=== PATIENT | male | born 1955 | race Caucasian/White ===

== ENCOUNTER → 2020-11-29 13:57 | Outpatient (BNVA) | payer MEDICAID, SELFPAY | PROVIDERS: PCP Registered Nurse Community Health; Visit Provider Nurse Practitioner Family ==

== ENCOUNTER 2021-01-11 13:13 | Emergency (ER) | payer MEDICAID, SELFPAY ==
--- NOTE | ~2021-01-11 | CT_ITS ---
EXAMINATION: CT ABDOMEN AND PELVIS WITHOUT CONTRAST CLINICAL INFORMATION: Left flank pain. Rule out renal colic COMPARISON: None TECHNIQUE: Multidetector volumetric imaging was performed from the superior aspect of the liver through the pubic symphysis. Sagittal and coronal reformatted images were obtained on the technologist's workstation. This CT examination was performed using dose optimization techniques as appropriate, variously including the following: *Automated exposure control *Adjustment of mA and/or kV according to patient size (this includes techniques or standardized protocols for targeted exams where dose is matched to indication/reason for exam; i.e. extremities or head) *Use of iterative reconstruction technique DLP: 653 mGy-cm FINDINGS: LUNG BASES: There is bibasilar atelectasis. In addition there is patchy opacity left lung base question infiltrate versus atelectasis. LIVER, GALLBLADDER, AND BILIARY TREE: The liver is normal in size, shape, and attenuation. No focal hepatic lesion or biliary ductal dilatation is present. The gallbladder is unremarkable with no evidence of radiopaque gallstones, gallbladder wall thickening, or obvious pericholecystic inflammatory changes. PANCREAS: Unremarkable. SPLEEN: Unremarkable. ADRENAL GLANDS: Unremarkable. KIDNEYS AND URETERS: The kidneys are normal in size, shape, and attenuation. There is mild left hydroureteronephrosis from a 3 mm radiopaque calculi at the left UVJ within the bladder. There is 2 mm radiopaque calculi seen in the upper pole calyx right kidney. There is bilateral perinephric stranding. BLADDER: There is a 3 mm radiopaque calculi at left UVJ, within the bladder. No additional radiopaque calculi seen. There is minimal bladder wall thickening. GASTROINTESTINAL TRACT: There is scattered stool, diverticuli and gas seen throughout the colon without significant distention. The small bowel loops are normal caliber. The appendix is normal caliber. ABDOMINAL WALL: There is a left periumbilical hernia containing fat with a 3.3 cm wide neck. LYMPH NODES: Normal. VASCULAR: Unremarkable. PELVIC VISCERA: There is no free air or free fluid seen. The prostate gland is mildly enlarged. OSSEOUS STRUCTURES: There is vacuum disc phenomena and degenerative disc changes L3-L4 and L4-L5 disc levels with ventral spondylosis. No lytic or sclerotic process seen. There is moderate L5-S1 facet joint arthropathy slightly greater on the right. CT/CT abdomen pelvis wo con IMPRESSION: 3 mm radiopaque calculi at the left UVJ within the urinary bladder. There is mild hydroureteronephrosis. Punctate 2 mm. The calculated upper pole calyx right kidney. Left periumbilical hernia containing fat and neck 3.3 cm wide. Colonic diverticulosis without diverticulitis.
[2021-01-11 13:29] VITALS: BP 147/95; PULSE 83; RESP 18; TEMP 36.8; O2SAT 99; BMI 31.6
--- NOTE | 2021-01-11 13:38 | ED.ABDPAIN ---
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 No nausea, vomiting, diarrhea, fevers, chills. Related Data Home Medications Medication Instructions Recorded Confirmed allopurinol 100 mg tablet 100 mg PO DAILY 11/29/20 11/29/20 fenofibrate micronized 134 mg 134 mg PO DAILY 11/29/20 11/29/20 capsule losartan 25 mg tablet 25 mg PO DAILY 11/29/20 11/29/20 metformin 500 mg tablet 500 mg PO BID 11/29/20 11/29/20 multivitamin 1 tab PO QAM 11/29/20 11/29/20 vitamin B complex 1 tab PO DAILY 11/29/20 11/29/20 Previous Rx's Medication Instructions Recorded bisacodyl 5 mg tablet,delayed 10 mg PO ONCE 1 Days #2 tab 11/29/20 release polyethylene glycol 3350 17 238 g PO ONCE #238 g 11/29/20 gram/dose oral powder tamsulosin [Flomax] 0.4 mg PO DAILY #5 cap 01/11/21 Allergies Allergy/AdvReac Type Severity Reaction Status Date / Time gemfibrozil [GEMFIBROZIL] Allergy Intermediate ELEVATED Verified 11/29/20 13:58 LIVER ENZYMES nifedipine [NIFEDIPINE] Allergy Intermediate ELEVATED Verified 11/29/20 13:58 LIVER ENZYMES verapamil [VERAPAMIL] Allergy Intermediate ELEVATED Verified 11/29/20 13:58 LIVER ENZYMES Review of Systems Review of Systems Yes all other systems are reviewed and are negative Constitutional: Reports no additional constitutional complaints, Denies body ache(s), Denies chills, Denies fever(s), Denies headache(s) and Denies weakness Eyes: Reports no additional eye complaints and Denies change in vision Reports system reviewed and no additional complaints, except as documented, Denies dizziness, Denies headache(s), Denies nasal congestion, Denies nasal discharge and Denies neck pain Cardiovascular: Reports no additional cardiovascular complaints, Denies chest pain, Denies leg edema and Denies dyspnea Respiratory: Reports no additional respiratory complaints, Denies cough and Denies dyspnea Gastrointestinal: Reports no additional gastrointestinal complaints, Denies abdominal pain, Denies diarrhea, Denies nausea and Denies vomiting Genitourinary: Reports dysuria, Reports flank pain, Denies testicular pain, Reports urinary frequency, Denies urinary incontinence and Reports urinary urgency Musculoskeletal: Reports no additional musculoskeletal complaints, Reports back pain, Denies arthralgias, Denies joint swelling, Denies neck pain, Denies numbness and Denies tingling Skin/Breast: Reports system reviewed and no additional complaints, except as docu and Denies rash Reports system reviewed and no additional complaints, except as documented, Denies Abnormal speech present, Denies dizziness, Denies headache(s), Denies numbness, Denies tingling and Denies weakness Physical Exam Vital Signs: Vital Signs: Last Vital Signs Temp 98.2 F 01/11/21 13:29 Pulse 83 01/11/21 13:29 Resp 18 01/11/21 14:42 BP 118/78 01/11/21 14:42 Pulse Ox 99 01/11/21 13:29 Body Mass Index 31.6 Const: General: cooperative, healthy appearing, comfortable and no acute distress Orientation/consciousness: patient oriented x3 Limitations: no limitations HENMT: Head: Yes normal to inspection Ears: hearing grossly normal bilaterally General nose exam: Normal external nose present Face and sinus: Yes normal facial exam Mouth: Normal oral and palatal mucosa present Throat: Yes posterior oropharynx normal Eyes: General: appearance normal, both eyes and all related structures Pupils: Equal, round and reactive pupils present Neck: Neck: Yes normal visual inspection Chest: Chest palpation & inspection: normal inspection of the chest Resp: Effort & Inspection: normal respiratory effort Auscultation: clear to auscultation bilaterally Cardio: Rate: regular rate Rhythm: regular rhythm Peripheral pulses: Peripheral pulses 2+ throughout GI: Inspection: Yes normal to inspection Palpation (GI): Soft to palpation and Tenderness to palpation present (GI) (mild left sided, no rebound or guarding) Auscultation: normal bowel sounds : Other: deferred by patient General: Yes CVA tenderness (mild left ) Back/Spine/Pelvis: Back: CVA tenderness (mild left ) Thoracic/Lumbar Spine: thoracic and lumbar spine normal to inspection Skin: General skin exam: no rashes or lesions noted Neuro: General: patient oriented x3, no focal motor deficits and normal sensation to monofilament Cranial nerves: Yes Equal, round and reactive pupils present Cognition (Neuro): normal cognition Speech: No Abnormal speech present Gait exam (Neuro): Normal gait present Motor exam (neuro): 5/5 motor strength present throughout Extrem: General: Yes normal to inspection Course Course Course Narrative: 65 yo male here with left flank pain with radiation to suprapubic with urinary symptoms x 1 hr Will need labs, UA, CT A/P and analgesia. 1530-CT shows 3mm radiopaque calculi at the left UVJ within the urinary bladder. There is mild hydroureteronephrosis. Renal function normal. All other labs unremarkable. UA shows 3+ blood but no signs of infection. Pain is resolved after 1 dose of Toradol. Has urologist and recommended he follow up with them. Reviewed worrisome signs and symptoms of when to return to the emergency department. Comfortable discharge home. MDM - Abdominal Pain MDM Narrative Medical decision making narrative: renal colic, pyelo, uti Medical Records Attestation: I reviewed the patient's medical records. Lab Data Attestation: I reviewed the patient's lab results. Result diagrams: 01/11/21 14:05 01/11/21 14:05 Labs: Lab Results 01/11/21 01/11/21 01/11/21 Range/Units 14:05 14:05 14:05 WBC 9.8 (4.8-10.8) X10*3/uL RBC 4.11 L (4.60-5.80) X10*6/uL Hgb 13.3 L (14.0-18.0) g/dl Hct 41.4 L (42-52) % MCV 100.7 H (80-98) fL MCH 32.4 (27.0-33.0) pg MCHC 32.1 (31.0-36.0) g/dl RDW 12.2 (11.0-16.0) % Plt Count 171 (160-400) X10*3/uL MPV 13.0 H (9.4-12.4) fL Immature Gran % (Auto) 0.5 H (0.0-0.4) % Neut % (Auto) 76.8 H (45-73) % Lymph % (Auto) 15.1 L (20-40) % [place] % (Auto) 6.6 (2-11) % Eos % (Auto) 0.6 (0-4) % Baso % (Auto) 0.4 (0-2) % Lymph # (Auto) 1.5 (1.2-4.9) X10*3/uL [place] # (Auto) 0.7 (0.1-1.2) X10*3/uL Eos # (Auto) 0.1 (0.0-0.4) X10*3/uL Baso # (Auto) 0.0 (0.0-0.2) X10*3/uL Abs Immat Gran (auto) 0.05 H (0.00-0.03) X10*3/uL Absolute Neuts (auto) 7.5 (2.0-8.3) X10*3/uL Absolute Nucleated RBC 0.000 (0.0-0.012) X10*3/uL Nucleated RBC % (auto) 0.0 (0.0-0.2) /100WBC Sodium 142 (135-145) mmol/L Potassium 4.6 (3.3-5.1) mmol/L Chloride 105 (96-108) mmol/L Carbon Dioxide 25 (22-29) mmol/L Anion Gap 17 (12-20) BUN 18 H (9-16) mg/dL Creatinine 1.22 (0.5-1.4) mg/dL Estim Creat Clear Calc 69.0 Estimated GFR 60 Random Glucose 116 H (60-115) mg/dL Calcium 9.8 (8.4-10.2) mg/dL Total Bilirubin 0.4 (0.0-1.0) mg/dL Direct Bilirubin 0.2 (0.0-0.5) mg/dL AST 19 (5-37) U/L ALT 23 (0-40) U/L Alkaline Phosphatase 62 (39-117) U/L Total Protein 7.6 (6.5-8.0) g/dL Albumin 4.6 (3.5-5.0) g/dL Lipase 30 (8-78) U/L Urine Color YELLOW Urine Appearance CLEAR Urine pH 5.5 (5.0-8.0) Ur Specific [place] >= 1.030 H (1.005-1.025) Urine Protein NEG (NEG-TRACE) MG/DL Urine Glucose (UA) NEG (NEG) MG/DL Urine Ketones NEG (NEG) MG/DL Urine Blood 3+ H (NEG) Urine Nitrite NEG (NEG) Ur Leukocyte Esterase NEG (NEG) Urine RBC 10-14 H (0) /HPF Urine WBC 0-2 (0-4) /HPF Ur Squamous Epith Cells TRACE /LPF Urine Bacteria NONE /LPF Urine Mucus 1+ /LPF Imaging Data CT scan - abdomen: Attestation: I personally reviewed and interpreted this imaging study as follows: Radiologist's impression: IMPRESSION: 3 mm radiopaque calculi at the left UVJ within the urinary bladder. There is mild hydroureteronephrosis. Punctate 2 mm. The calculated upper pole calyx right kidney. Left periumbilical hernia containing fat and neck 3.3 cm wide. Colonic diverticulosis without diverticulitis. Discharge Plan Discharge Clinical Impression: Calculus of kidney Patient Disposition: Home, Self-Care Instructions: Kidney Stones (ED) Additional Instructions: Follow-up with your urologist Prescriptions: New tamsulosin [Flomax] 0.4 mg capsule 0.4 mg PO DAILY Qty: 5 RF: 0 No Action bisacodyl [Dulcolax (bisacodyl)] 5 mg tablet,delayed release (DR/EC) 10 mg PO ONCE 1 Days Qty: 2 RF: 0 polyethylene glycol 3350 [Miralax] 17 gram/dose powder 238 g PO ONCE Qty: 238 RF: 0 allopurinol 100 mg tablet 100 mg PO DAILY RF: 0 metformin 500 mg tablet 500 mg PO BID RF: 0 fenofibrate micronized 134 mg capsule 134 mg PO DAILY RF: 0 losartan 25 mg tablet 25 mg PO DAILY RF: 0 multivitamin Tablet 1 tab PO QAM RF: 0 vitamin B complex [B Complex-Vitamin B12] Tablet 1 tab PO DAILY RF: 0 Referrals: Ashwin Baird III, MD [Physician] - 2 days Physician,Unknown [Primary Care Provider] - 2 days Interventions: ED Discharge Assessment Last Done: 01/11/21 17:03 Discharge Date/Time: 01/11/21 17:03 [facility] Past Medical History Attestation statement: The following information was validated with the patient. Source: old records reviewed and nursing notes reviewed Medical History (Updated 01/11/21 @ 15:26 by Citlali Craft NP) Diabetes Gout High cholesterol Hypertension MEJIA (obstructive sleep apnea) Tubular adenoma Surgical History H/O colonoscopy H/O knee surgery Family History Family History Mother Diabetes Maternal Grandmother Diabetes Social History Social History Household Members: Family and Children Alcohol intake: current Alcohol intake frequency: does not drink Smoking Status: Never smoker Advance Directives: Yes Advance Directives Information Provided: Yes Advance Directives on File: No
[2021-01-11] MEDS: Ketorolac Tromethamine 30 MG/ML VIAL IVPUSH (14:09)
[2021-01-11 14:11] LABS: Basophils Percent Auto 0.4 % (0-2); Eosinophils Absolute Auto 0.1 X10*3/uL (0.0-0.4); Eosinophils Percent Auto 0.6 % (0-4); Hematocrit 41.4 % (42-52); Hemoglobin 13.3 g/dl (14.0-18.0); Imm Gran Abs Auto 0.05 X10*3/uL (0.00-0.03); Imm Gran Pct Auto 0.5 % (0.0-0.4); Lymphocytes Absolute Auto 1.5 X10*3/uL (1.2-4.9); Lymphocytes Percent Auto 15.1 % (20-40); MANUAL DIFF FLAG NO; Mean Corpuscular HGB Conc 32.1 g/dl (31.0-36.0); Mean Corpuscular Hemoglobin 32.4 pg (27.0-33.0); Mean Corpuscular Volume 100.7 fL (80-98); Monocytes Absolute Auto 0.7 X10*3/uL (0.1-1.2); Monocytes Percent Auto 6.6 % (2-11); Neutrophils Absolute Auto 7.5 X10*3/uL (2.0-8.3); Neutrophils Percent Auto 76.8 % (45-73); Platelet Count 171 X10*3/uL (160-400); Red Blood Count 4.11 X10*6/uL (4.60-5.80); Red Cell Distribution Width 12.2 % (11.0-16.0); White Blood Count 9.8 X10*3/uL (4.8-10.8)
[2021-01-11 14:25] LABS: Glucose Urine UA NEG (NEG); Leukocyte Esterase Urine NEG (NEG); Nitrite Urine NEG (NEG); PH 5.5 (5.0-8.0); Specific Gravity - Urine >= 1.030 (1.005-1.025); Urine Blood 3+ (NEG); Urine Ketones NEG (NEG); Urine Protein NEG (NEG-TRACE)
[2021-01-11 14:27] LABS: Appearance Urine CLEAR; Color Urine YELLOW
[2021-01-11 14:35] LABS: Alanine Aminotransferase 23 U/L (0-40); Albumin Level 4.6 g/dL (3.5-5.0); Alkaline Phosphatase 62 U/L (39-117); Anion Gap 17 (12-20); Aspartate Amino Transferase 19 U/L (5-37); Bilirubin Direct 0.2 mg/dL (0.0-0.5); Bilirubin Total 0.4 mg/dL (0.0-1.0); Blood Urea Nitrogen 18 mg/dL (9-16); Calcium 9.8 mg/dL (8.4-10.2); Carbon Dioxide 25 mmol/L (22-29); Chloride 105 mmol/L (96-108); Estimated Glomerular Filt Rate 60; Glucose Random 116 mg/dL (60-115); Lipase 30 U/L (8-78); Potassium 4.6 mmol/L (3.3-5.1); Sodium 142 mmol/L (135-145); Total Protein 7.6 g/dL (6.5-8.0)
[2021-01-11 14:42] VITALS: BP 118/78; RESP 18
[2021-01-11 14:43] LABS: Mucus Urine 1+ /LPF; Squamous Epithelial Cell Urine TRACE /LPF; WBC Urine 0-2 /HPF (0-4)
== END 2021-01-11 17:03 | disposition home or self-care (01) ==
PROVIDERS: Nurse Practitioner Family; Emergency Provider Emergency Medicine
DX: N13.2 Hydronephrosis with renal and ureteral calculous obstruction (principal); K42.9 Umbilical hernia without obstruction or gangrene; K57.90 Diverticulosis of intestine, part unspecified, without perforation or abscess without bleeding; E11.9 Type 2 diabetes mellitus without complications; I10 Essential (primary) hypertension; Z79.899 Other long term (current) drug therapy; Z79.84 Long term (current) use of oral hypoglycemic drugs
CPT/HCPCS: 36415; 74176; 80048; 80076; 81001; 83690; 85025; 96374; 99284; J1885

== ENCOUNTER → 2021-01-25 10:40 | Outpatient (BNVA) | payer MEDICAID, SELFPAY | PROVIDERS: PCP Registered Nurse Community Health; Visit Provider Urology | DX: N20.0 Calculus of kidney (principal); E29.1 Testicular hypofunction | CPT/HCPCS: 99212 ==

== ENCOUNTER 2021-02-01 07:48 | Day surgery (SDC) | payer MEDICAID, SELFPAY ==
[2021-01-26 14:53] VITALS: BMI 31.6
--- NOTE | 2021-01-30 14:44 | HO.ANESPROP2 ---
Documented by User: Arline Benz 01/30/21 14:45 HPI - Anesthesia Eval Consult details Narrative: 66yo M for Colonoscopy PMFSH Active Problems Active Problems: All Active Problems (Updated 01/25/21 @ 11:43 by Yevgeniy Ocasio MD) Nephrolithiasis (Acute) Tubular adenoma (Acute) Past Medical History Medical History Anemia Asthma Diabetes Gout High cholesterol Hypertension Hypogonadism in male Obesity MJEIA (obstructive sleep apnea) Tubular adenoma Family History Family History Mother Diabetes Maternal Grandmother Diabetes Surgical History Surgical History H/O colonoscopy H/O knee surgery Social History Social History Household Members: Family and Children Alcohol intake: current Alcohol intake frequency: does not drink Smoking Status: Never smoker Use of substances other than those prescribed or required for medical reasons: No Advance Directives Information Provided: No Meds Allergies Allergy/AdvReac Type Severity Reaction Status Date / Time gemfibrozil [GEMFIBROZIL] Allergy Intermediate ELEVATED Verified 11/29/20 13:58 LIVER ENZYMES nifedipine [NIFEDIPINE] Allergy Intermediate ELEVATED Verified 11/29/20 13:58 LIVER ENZYMES verapamil [VERAPAMIL] Allergy Intermediate ELEVATED Verified 11/29/20 13:58 LIVER ENZYMES Home Medications Medication Instructions Recorded Confirmed Last Taken Type allopurinol 100 mg tablet 100 mg PO DAILY 11/29/20 01/26/21 Unknown History fenofibrate micronized 134 mg 134 mg PO DAILY 11/29/20 01/26/21 Unknown History capsule losartan 25 mg tablet 25 mg PO DAILY 11/29/20 01/26/21 Unknown History metformin 500 mg tablet 500 mg PO BID 11/29/20 01/26/21 Unknown History multivitamin 1 tab PO QAM 11/29/20 01/26/21 Unknown History vitamin B complex 1 tab PO DAILY 11/29/20 11/29/20 Unknown History Exam Exam Date and Time: January 30, 2021 1444 Height,Weight and Vital Signs: Height 5 ft 8 in Weight 94.347 kg Pertinent Lab Results Pertinent Lab Results: Laboratory Tests 01/11/21 01/11/21 14:05 14:05 WBC 9.8 Hgb 13.3 L Hct 41.4 L Plt Count 171 Sodium 142 Potassium 4.6 Chloride 105 Carbon Dioxide 25 BUN 18 H Creatinine 1.22 Assessment and Plan Assessment Anesthesia Assessment: Chart Reviewed Documented by User: Frnaces Ayala 02/01/21 08:41 [facility] Past Medical History Medical History Anemia Asthma Diabetes Gout High cholesterol Hypertension Hypogonadism in male Obesity MEJIA (obstructive sleep apnea) Tubular adenoma Family History Family History Mother Diabetes Maternal Grandmother Diabetes Family history of problems with anesthesia: No Surgical History Surgical History H/O colonoscopy H/O knee surgery History of Problems with Anesthesia: No Social History Social History Household Members: Family and Children Alcohol intake: current Alcohol intake frequency: does not drink Smoking Status: Never smoker Use of substances other than those prescribed or required for medical reasons: No Advance Directives Information Provided: No Meds Allergies Allergy/AdvReac Type Severity Reaction Status Date / Time gemfibrozil [GEMFIBROZIL] Allergy Intermediate ELEVATED Verified 11/29/20 13:58 LIVER ENZYMES nifedipine [NIFEDIPINE] Allergy Intermediate ELEVATED Verified 11/29/20 13:58 LIVER ENZYMES verapamil [VERAPAMIL] Allergy Intermediate ELEVATED Verified 11/29/20 13:58 LIVER ENZYMES Home Medications Medication Instructions Recorded Confirmed Last Taken Type allopurinol 100 mg tablet 100 mg PO DAILY 11/29/20 01/26/21 Unknown History fenofibrate micronized 134 mg 134 mg PO DAILY 11/29/20 01/26/21 Unknown History capsule losartan 25 mg tablet 25 mg PO DAILY 11/29/20 01/26/21 Unknown History metformin 500 mg tablet 500 mg PO BID 11/29/20 01/26/21 Unknown History multivitamin 1 tab PO QAM 11/29/20 01/26/21 Unknown History vitamin B complex 1 tab PO DAILY 11/29/20 11/29/20 Unknown History Exam Height,Weight and Vital Signs: Vital Signs Temp Pulse Resp BP Pulse Ox 02/01/21 08:08 97.6 F 80 16 130/86 98 Lab Results 02/01/21 Range/Units 08:02 POC Glucose 126 H (60-115) mg/dL Airway Mallampati Class: II TM Dist: >3cm Neck ROM: Full Loose/Missing/Broken Teeth: Yes (Chipped top front, some missing) Heart: RRR Lungs: CTAB Assessment and Plan Assessment Anesthesia Assessment: Anesthesia Plan Discussed and Chart Reviewed Final Anesthetic Review NPO: Yes ASA Class: III Final Preanesthetic Review: No Changes in Pt Med Stat, Meds/Allgs Chart Reviewed, Consent Obtained/Reviewed and Anes Risks/Benef Reviewed Patient Risk: Intermediate Procedure Risk: Low Assessment/Block/Sedation in SS: Assess/Block/Sedation-SS Anesthetic Plan Anesthetic Plan: MAC: Disposition: Standard PACU
--- NOTE | 2021-02-01 07:56 | P.HPSUR_ITS ---
Pre-Procedural Eval Section B Chief Complaint: screening Relevant Family History (Specify if Yes): No Relevant Social History: None Present Medications: see Short Stay Collaborative assessment Medical History: Significant History (Anemia Asthma Diabetes Gout High cholesterol Hypertension Hypogonadism in male Obesity MEJIA (obstructive sleep apnea) Tubular adenoma) History of Previous Operations: Relevant previous surgery/procedure and date(s) (knee surgery) Allergies: Allergies Allergy/AdvReac Type Severity Reaction Status Date / Time gemfibrozil [GEMFIBROZIL] Allergy Intermediate ELEVATED Verified 11/29/20 13:58 LIVER ENZYMES nifedipine [NIFEDIPINE] Allergy Intermediate ELEVATED Verified 11/29/20 13:58 LIVER ENZYMES verapamil [VERAPAMIL] Allergy Intermediate ELEVATED Verified 11/29/20 13:58 LIVER ENZYMES Review of Systems Sugical H&P ROS: Negative: Constitution, Cardiovascular, Respiratory, Neurological, Psychiatric, Hem-Onc, Allergic/Immunologic, Gastrointestinal, Genitourinary, Musculoskeletal, Integumentary, Endocrine and Eyes/Ea rs/Nose/Throat Exam Surgical H&P Exam: Normal: HEENT, Normal: Heart, Normal: Lungs, Normal: Extremities, Normal: Abdomen, Normal: Skin and Normal: Neurological Plan Diagnosis/Plan: Unchanged I have reviewed the history and physical and performed a pertinent physical examination on my patient. No changes have occurred unless specified.
[2021-02-01 08:08] VITALS: BP 130/86; PULSE 80; RESP 16; TEMP 36.4; O2SAT 98
[2021-02-01] MEDS: Lactated Ringers 1,000 ML 100 ML IVCONT (08:15)
[2021-02-01 08:20] LABS: Glucose, Whole Blood 126 mg/dL (60-115)
--- NOTE | 2021-02-01 09:19 | P.OP_ITS ---
Operative Note Operative Note Date of Service: 02/01/21 Narrative: Operative Information Procedure Description: Colonoscopy COLONOSCOPY Instrument: Olympus variable stiffness pediatric scope 190L Colonoscopy Monitoring: Vital signs and clinical assessment, continuous EKG monitoring, Pulse oximetry, Carbon Dioxide monitoring and blood pressure monitoring were done throughout the procedure. Colon withdrawal time was 13 minutes. Procedure: The patient was placed in the left lateral decubitis position and pre-procedure medications were administered. After a digital rectal examination of the ano-rectum, the video colonoscope was inserted into the rectum and advanced through the colon to the cecum/TI. The colonoscope was slowly withdrawn in a retrograde panoramic fashion and the colon mucosa was carefully examined including a retroflexed view of the rectum. Findings and interventions are described below. Procedure Difficulty: easy Findings: Terminal Ileum-normal Cecum:normal Ascending Colon: normal Transverse Colon - 5-6 mm sessile polyp removed with forceps Descending Colon: 5-6 mm sessile polyp removed with forceps, otherwise normal Sigmoid Colon: 5-6 mm sessile polyp removed with forceps, moderate diverticulosis noted Rectum: Retroflexion with medium sized internal hemorrhoids, grade I Anorectum - normal Colon preparation: [place] Bowel Preparation Scale Right colon; 2 Transverse colon: 3 Left colon; 3 (0 = Unprepared colon segment with mucosa not seen due to solid stool that cannot be cleared. 1 = Portion of mucosa of the colon segment seen, but other areas of the colon segment not well seen due to staining, residual stool and/or opaque liquid. 2 = Minor amount of residual staining, small fragments of stool and/or opaque liquid, but mucosa of colon segment seen well. 3 = Entire mucosa of colon segment seen well with no residual staining, small fragments of stool or opaque liquid) Impression and Post Procedure Diagnosis: polyps internal hemorrhoids diverticular disease Plan: High fiber diet leaflet Avoid straining at stool, epsom salts and sitz bath, anusol supps or cream prn Repeat Colonoscopy in 5 years or earlier if clinically indicated Above findings were reviewed with the patient and relevant handouts were provided if indicated.
--- NOTE | 2021-02-01 09:19 | PM.OP ---
Brief Operative Note Date of Service: 02/01/21 Pre-op diagnosis: colon screening Post-op diagnosis: same Procedure: see op note Surgeon: Bebo Kirkland MD Anesthesia: MAC Estimated blood loss (mL): 0 Condition: stable Disposition: PACU
[2021-02-01 09:24] VITALS: BP 96/65; PULSE 88; RESP 12; TEMP 37.1; O2SAT 94
[2021-02-01 09:39] VITALS: BP 117/80; PULSE 78; RESP 17; TEMP 37.1; O2SAT 96
== END 2021-02-01 10:05 | disposition home or self-care (01) ==
PROVIDERS: Visit Provider Internal Medicine Gastroenterology
PROC: 0DJD8ZZ Inspection of Lower Intestinal Tract, Via Natural or Artificial Opening Endoscopic (ICD-10-PCS; CPT 45378; principal; 2021-02-01 08:30)
DX: Z12.11 Encounter for screening for malignant neoplasm of colon (principal); D12.4 Benign neoplasm of descending colon; K63.5 Polyp of colon; K57.30 Diverticulosis of large intestine without perforation or abscess without bleeding; K64.0 First degree hemorrhoids; D64.9 Anemia, unspecified; J45.909 Unspecified asthma, uncomplicated; G47.33 Obstructive sleep apnea (adult) (pediatric); I10 Essential (primary) hypertension; E11.9 Type 2 diabetes mellitus without complications; Z79.84 Long term (current) use of oral hypoglycemic drugs; Z79.899 Other long term (current) drug therapy; Z88.8 Allergy status to other drugs, medicaments and biological substances
CPT/HCPCS: 45380; 82947; 88305; J2405; J2765

== ENCOUNTER → 2021-02-14 13:36 | Outpatient (BNVA) | payer MEDICAID, SELFPAY | PROVIDERS: Visit Provider Nurse Practitioner Family ==

== ENCOUNTER 2021-07-16 07:44 | Outpatient (REF) | payer MEDICAID, SELFPAY ==
--- NOTE | ~2021-07-16 | US_ITS ---
EXAMINATION: US RETROPERITONEAL LIMITED (RENAL ONLY) CLINICAL INFORMATION: Calculus of kidney. COMPARISON: CT abdomen pelvis 01/11/2021. Ultrasound abdomen 04/12/2010. TECHNIQUE: Real-time imaging of the kidneys. FINDINGS: RIGHT KIDNEY: 10.8 x 6.4 x 6.3 cm (SAG x AP x TRV). The kidney is normal in size, contour, and echogenicity. Renal cortical thickness is normal. No calculi or focal parenchymal lesions. No hydronephrosis. Echogenic stones seen on CT is not visualized on the present exam. LEFT KIDNEY: 11.4 x 4.8 x 5.5 cm (SAG x AP x TRV). The kidney is normal in size, contour, and echogenicity. Renal cortical thickness is normal. No focal parenchymal lesions or hydronephrosis. There is an echogenic stone midpole measuring 0.2 x 0.1 cm. There is no caliectasis or hydronephrosis seen. US/US renal BI IMPRESSION: Nonobstructive 0.2 cm stone midpole left kidney. There is no caliectasis or hydronephrosis on either side.
== END 2021-07-16 07:45 | disposition home or self-care (01) ==
LOC: HO.US 07:44
PROVIDERS: PCP Nurse Practitioner Primary Care; Visit Provider Urology
DX: N20.0 Calculus of kidney (principal)
CPT/HCPCS: 76775

== ENCOUNTER → 2021-08-07 12:01 | Outpatient (BNVA) | payer MEDICAID, SELFPAY | PROVIDERS: Visit Provider Urology ==

== ENCOUNTER → 2021-09-04 08:30 | Outpatient (BNVA) | payer MEDICAID, SELFPAY | PROVIDERS: PCP Nurse Practitioner Primary Care; Referring Provider Nurse Practitioner Primary Care; Visit Provider Nurse Practitioner Family | DX: R13.12 Dysphagia, oropharyngeal phase (principal); K21.9 Gastro-esophageal reflux disease without esophagitis; D12.6 Benign neoplasm of colon, unspecified; E11.9 Type 2 diabetes mellitus without complications; I10 Essential (primary) hypertension; E78.00 Pure hypercholesterolemia, unspecified; E66.9 Obesity, unspecified; Z68.31 Body mass index [BMI] 31.0-31.9, adult; Z83.3 Family history of diabetes mellitus; Z88.8 Allergy status to other drugs, medicaments and biological substances; Z79.84 Long term (current) use of oral hypoglycemic drugs; Z79.899 Other long term (current) drug therapy | CPT/HCPCS: 99212 ==

== ENCOUNTER 2021-12-05 14:13 | Outpatient (REF) | payer MEDICAID, SELFPAY ==
--- NOTE | ~2021-12-05 | FL_ITS ---
EXAMINATION: XR BARIUM SWALLOW CLINICAL INFORMATION: Dysphagia COMPARISON: None TECHNIQUE: Barium swallow was performed with patient sitting on the lateral fluoroscopy.. FINDINGS: Following the redemonstration of various consistencies of thin, thick, semisolid and solid food coated with barium there is normal propagation bolus from the oral cavity through the pharynx into upper esophagus. There is no laryngeal penetration or aspiration seen. No retention of barium in the valleculae or piriform sinuses., FLUOROSCOPY TIME: 1.2 minutes DOSE AREA PRODUCT: 2.103 Gy-cm2 (centimeter squared) FL/FL barium swallow modified IMPRESSION: Unremarkable modified barium swallow. Correlate with speech therapy results.
--- NOTE | 2021-12-06 11:13 | MHC.SL.IMP ---
Date of Plan of Treatment: 12/05/21 Onset of Symptoms/Illness: 09/04/21 Date Treatment Started: 12/05/21 Admitting Diagnosis: Anemia Asthma Diabetes Gout High cholesterol Hypertension Hypogonadism in male Obesity Obstructive sleep apnea Tubular adenoma SURGICAL HX: Colonoscopy Knee surgery Primary Speech & Language Diagnosis: R13.12 Oropharyngeal Phase Dysphagia Reason for Today's Visit: 87630 Modified Barium Swallow Study Pre-evaluation Dietary Consistencies: Regular Pre-evaluation Liquid Consistency: Thin Pre-evaluation Medication Administration: Whole with Liquid Medical History: Modified Barium Swallow Study Fluoroscopic Evaluation of Swallowing Function CPT Code 73402 Evaluation Year: 2021 Reason for Study: Patient reports difficulty swallowing. Referring Physician: Bebo Kirkland MD Evaluating Clinician: Prachi Lewis MA, CCC-CHURCH HISTORY PROFESSOR Study Number: 1 Patient Name: Jm Pappas Status: Outpatient, Ambulatory Age: 66 Gender: Male MEDICAL HISTORY: Year of Onset or Diagnosis: 2021 Comorbidities: Anemia Asthma Diabetes Gout High cholesterol Hypertension Hypogonadism in male Obesity Obstructive sleep apnea Tubular adenoma SURGICAL HX: Colonoscopy Knee surgery Current (pre-evaluation) Intake/Diet: Route: PO Diet Grade: Regular Liquid Consistencies: Thin Pre-Study Functional Oral Intake Scale (FOIS): 7- Total oral intake with no restrictions Pain: None reported at time of study SUBJECTIVE: Patient is a 66 year old male who was referred for a modified barium swallow study by Bebo Kirkland MD from Gastroenterology. Patient attended this exam unaccompanied. He is followed by [facility] for GERD, for which he takes omeprazole. Recently, patient reported difficulty swallow. Oral Motor Exam Facial Symmetry: Symmetrical Mouth Occlusion: Normal Oral-Facial Teeth Characteristics: Intact/Normal Oral-Facial Lip Pucker Description: Normal Oral-Facial Smile (Lips) Description: Normal Oral-Facial Puff Cheeks Description: Normal Tongue Size: Normal Tongue Excursion Description: Normal Tongue Range of Movement Description: Normal Tongue Speed of Movement Description: Normal Tongue Strength of Movement (against opposing pressure): Normal Tongue Movement Characteristics: Normal/Absent Is patient able to manage secretions?: Yes Food and Liquid Trials: Oral Impairment: Lip Closure: Did not test Oral Impairment: Tongue Control During Bolus Hold: 1=Escape to lateral buccal cavity/floor of mouth (FOM) Oral Impairment: Bolus Preparation/Mastication: 1=Slow prolonged chewing/mashing with complete re-collection Oral Impairment: Bolus Transport/Lingual Motion: 3=Repetitive/disorganized tongue motion Oral Impairment: Oral Residue: 1=Trace residue lining oral structures Oral Impairment:Initiation of Pharyngeal Swallow: 2=Bolus head at posterior laryngeal surface of epiglottis Pharyngeal Impairment: Soft Palate Elevation: 0=No bolus between soft palate (SP)/pharyngeal wall (PW) Pharyngeal Impairment: Laryngeal Elevation: 0=Complete superior movement of thyroid cartilage (see description) Pharyngeal Impairment: Anterior Hyoid Excursion: 0=Complete anterior movement Pharyngeal Impairment: Epiglottic Movement: 0=Complete inversion Pharyngeal Impairment: Laryngeal Vestibular Closure:: 0=Complete: no air/contrast in laryngeal vestibule Pharyngeal Impairment: Pharyngeal Stripping Wave: 0=Present: complete Pharyngeal Impairment: Pharyngeal Contraction: Did not test Pharyngeal Impairment: Pharyngoesophageal Segment Openin=Complete distension and complete duration: no obstruction of flow Pharyngeal Impairment: Tongue Base (TB) Retraction: 3=Wide column of contrast/air between TB and posterior PW Pharyngeal Impairment: Pharyngeal Residue: 1=Trace residue within or on pharyngeal structures Pharyngeal Impairment: Esophageal Clearance Upright Position: Did not test Impressions and Recommendations Clinical Observations: OBJECTIVE: Time-out: performed at 02:45 Evaluation Start: 02:30; Stop: 02:40 Patient Positioning: Seated 70-90 degrees Viewing Planes: LATERAL ONLY Contrast: MBSImP? Standardized Protocol using commercially prepared, standardized Barium viscosities, including: Varibar? THIN LIQUID (40% w/v, <15 cps) , 1/2 Shortbread Cookie (1 x1 x.25 ) MBSImP ID: [id number] [facility] Results: Lip closure for intraoral bolus containment could not be assessed due to logistical reasons not related to physiologic impairment. Tongue control during bolus hold allowed bolus escape to the lateral buccal cavity/floor of mouth. Bolus preparation and mastication resulted in slow, prolonged chewing/mashing but with complete re-collection. Bolus transport/lingual motion was with repetitive/disorganized motion of the tongue. Oral residue was a trace, lining oral structures. Initiation of the pharyngeal swallow occurred as the bolus head was at the posterior laryngeal surface of the epiglottis. Soft palate elevation resulted in no bolus between the soft palate and the pharyngeal wall. Laryngeal elevation demonstrated complete superior movement of the thyroid cartilage with complete approximation of the arytenoids to the epiglottic petiole. Anterior hyoid excursion demonstrated complete anterior movement. Epiglottic movement resulted in complete inversion. Laryngeal vestibular closure was complete, as indicated by no air or contrast within the laryngeal vestibule at the height of the swallow. Pharyngeal stripping wave was present and complete. Pharyngeal contraction could not be determined due to logistical reasons not related to physiologic impairment. Pharyngoesophageal segment opening was completely distended for complete duration with no obstruction of bolus flow. Tongue base retraction allowed a wide column of contrast or air between the retracted tongue base and the posterior pharyngeal wall. Pharyngeal residue was a trace within or on pharyngeal structures. Esophageal clearance in the upright position could not be assessed due to logistical reasons not related to physiologic impairment. Oral Impairment Score: 7 (absence of score, component 1) Pharyngeal Impairment Score: 3 (absence of score, component 13) Esophageal Impairment Score: --- (absence of score, component 17) Laryngeal Penetration and Aspiration: Neither penetration nor aspiration was observed in today's study with Cookie, Thin. ASSESSMENT: Clinician Assessment: This exam was conducted by a multidisciplinary team, which included radiologist, systems testing laboratory technician, and speech-language pathologist. Patient was seated upright at optimal 90 degree angle for lateral view only. Patient trialed the following liquid and solid consistencies: 5 mL thin liquid barium, individual cup sip thin liquid barium, sequential cup sips thin liquid barium, pureed solid (mixture applesauce with barium paste), ground solid (mixture chicken salad with barium paste), and regular solid (Berenice Doone cookie coated with barium paste). Oral phase characterized by mildly slow mastication and repetitive posterior tongue movements for bolus propulsion, but with good oral clearance. Trace lingual residue considered to be within functional limits and cleared with spontaneous dry swallow. Escape of liquid to floor of mouth, but with no premature posterior escape prior to swallow trigger. Pharyngeal swallow trigger initiated when bolus head was at posterior laryngeal surface of epiglottis. No nasopharyngeal reflux. Complete laryngeal elevation with complete anterior hyoid excursion and epiglottic inversion. No evidence of aspiration or penetration with solids and liquids. Trace pharyngeal residue on tongue base and in valleculae completely cleared with spontaneous dry swallow. No obstruction of flow through pharyngoesophageal segment opening. Liquid Intake Recommendation: Thin Liquid Intake Strategies: Small Sips Dietary Recommendations: Regular Medication Administration: Whole with Liquid Compensatory Strategies Recommended: Sitting Upright (90 deg) Double Swallow Small Bites and Sips Alternate Liquids/Solids Rate of Ingestion Change Supervision during eating and or drinking: None Needed Recommendation for Speech Therapy: NA:Typical Evaluation PLAN: Intake Recommendations: Route: PO Diet Grade: Regular Liquid Consistencies: Thin Post-Study Functional Oral Intake Scale (FOIS): 7- Total oral intake with no restrictions No evidence of aspiration or penetration during this exam. Good oral and pharyngeal clearance. ST intervention is not indicated at this time. Recommend resume unmodified diet textures- regular solids and thin liquids. Therapy Recommendations: Therapy will be discontinued Prognosis for Improvement: The prognosis for the patient to meet nutritional needs by mouth is excellent based on degree of impairment. Clinician - Supplemental, Miscellaneous Communication: It is important to note MBSS objective studies are snapshots in time and Patient function might vary with factors such as time of day or concomitant medical conditions. For this reason, the final treatment plan for this patient should rest with their medical care team. Additional recommendations should be considered with the totality of the Patient in mind. Thank for the opportunity to participate in the care of this patient. If you have any questions about the content of this report, please contact the [facility] at [facility]. Education: Education regarding findings from today's study and plans for therapy were provided to Patient only through Verbal Instruction. Understanding was expressed by the Patient only. Panel Flow Machine Operator Clinician/Clinical Fellow: No Supervisory Statement: N/A Speech Language Pathologist: Prachi Lewis M.A., CCC-CHURCH HISTORY PROFESSOR
== END 2021-12-05 14:14 | disposition home or self-care (01) ==
LOC: HO.XRAY 14:13
PROVIDERS: Visit Provider Internal Medicine Gastroenterology
DX: R13.10 Dysphagia, unspecified (principal)
CPT/HCPCS: 74230; 92611

== ENCOUNTER → 2021-12-18 07:41 | Outpatient (BNVA) | payer MEDICAID, SELFPAY | PROVIDERS: PCP Nurse Practitioner Primary Care; Referring Provider Nurse Practitioner Primary Care; Visit Provider Nurse Practitioner Family | DX: R13.14 Dysphagia, pharyngoesophageal phase (principal); K21.9 Gastro-esophageal reflux disease without esophagitis; K59.01 Slow transit constipation | CPT/HCPCS: 99212 ==

== ENCOUNTER 2021-12-30 | Outpatient (REF) | payer MEDICAID, SELFPAY | END 2021-12-30 00:01 | disposition home or self-care (01) | LOC: HO.LNP | PROVIDERS: Visit Provider Nurse Practitioner Family | DX: K21.9 Gastro-esophageal reflux disease without esophagitis (principal) | CPT/HCPCS: 87338 ==

== ENCOUNTER → 2022-01-30 08:51 | Outpatient (BNVA) | payer MEDICAID, SELFPAY | PROVIDERS: PCP Nurse Practitioner Primary Care; Referring Provider Registered Nurse Community Health; Visit Provider Surgery | DX: K42.9 Umbilical hernia without obstruction or gangrene (principal) | CPT/HCPCS: 99202 ==

== ENCOUNTER 2022-03-06 08:44 | Emergency (ER) | payer MEDICAID, SELFPAY ==
[2022-03-06 08:48] VITALS: BP 142/94; PULSE 91; RESP 18; TEMP 36.8; O2SAT 99; BMI 31.9
== END 2022-03-06 10:21 | disposition left against medical advice (07) ==
PROVIDERS: Emergency Provider Emergency Medicine
DX: R21 Rash and other nonspecific skin eruption (principal); E11.9 Type 2 diabetes mellitus without complications; I10 Essential (primary) hypertension; E78.5 Hyperlipidemia, unspecified
CPT/HCPCS: 99281

== ENCOUNTER 2022-03-29 10:45 | Day surgery (SDC) | payer MEDICAID, SELFPAY ==
[2022-03-25 14:02] VITALS: BMI 31.3
--- NOTE | 2022-03-28 10:47 | HO.ANESPROP2 ---
Documented by User: Arline Benz NP 03/28/22 10:49 HPI - Anesthesia Eval Consult details Narrative: 67yo M for Hernia Repair Umbilical,poss mesh PMFSH Active Problems Active Problems: All Active Problems (Updated 03/25/22 @ 14:03 by Mila Grady, RN) Nephrolithiasis (Acute) Umbilical hernia (Acute) Hypogonadism in male (Acute) Tubular adenoma (Acute) Past Medical History Medical History Anemia Asthma Diabetes Gout High cholesterol Hypertension Hypogonadism in male Obesity MEJIA (obstructive sleep apnea) Tubular adenoma Umbilical hernia Family History Family History Mother Diabetes Maternal Grandmother Diabetes Family history of problems with anesthesia: No Surgical History Surgical History H/O colonoscopy H/O knee surgery History of Problems with Anesthesia: No Social History Social History Household Members: Family and Children Alcohol intake: current Alcohol intake frequency: does not drink Patient Tobacco Use Status: Never used Tobacco Use of substances other than those prescribed or required for medical reasons: No Are you DNR?: No Advance Directives: No Advance Directives Information Provided: Yes Recently lost weight without trying: No Eating poorly because of decreased appetite: No Meds Allergies Allergy/AdvReac Type Severity Reaction Status Date / Time gemfibrozil [GEMFIBROZIL] Allergy Intermediate ELEVATED Verified 03/29/22 11:35 LIVER ENZYMES nifedipine [NIFEDIPINE] Allergy Intermediate ELEVATED Verified 03/29/22 11:35 LIVER ENZYMES verapamil [VERAPAMIL] Allergy Intermediate ELEVATED Verified 03/29/22 11:35 LIVER ENZYMES Home Medications Medication Instructions Recorded Confirmed Last Taken Type allopurinol 100 mg tablet 100 mg PO DAILY 11/29/20 03/25/22 Unknown History fenofibrate micronized 134 mg 134 mg PO DAILY 11/29/20 03/25/22 Unknown History capsule losartan 25 mg tablet 25 mg PO DAILY 11/29/20 03/25/22 03/29/22 History metformin 500 mg tablet 500 mg PO BID 11/29/20 03/25/22 Unknown History multivitamin 1 tab PO QAM 11/29/20 03/25/22 Unknown History vitamin B complex (B 1 tab PO DAILY 11/29/20 03/25/22 Unknown History Complex-Vitamin B12) Exam Exam Date and Time: March 28, 2022 1047 Height,Weight and Vital Signs: Height 5 ft 8 in Weight 93.44 kg Assessment and Plan Assessment Anesthesia Assessment: Chart Reviewed Final Anesthetic Review Family History of Problems with Anesthesia: No History of Problems with Anesthesia: No Documented by User: Elin Mendez MD 03/29/22 12:56 [facility] Past Medical History Medical History Anemia Asthma Diabetes Gout High cholesterol Hypertension Hypogonadism in male Obesity MEJIA (obstructive sleep apnea) Tubular adenoma Umbilical hernia Family History Family History Mother Diabetes Maternal Grandmother Diabetes Surgical History Surgical History H/O colonoscopy H/O knee surgery Social History Social History Household Members: Family and Children Alcohol intake: current Alcohol intake frequency: does not drink Patient Tobacco Use Status: Never used Tobacco Use of substances other than those prescribed or required for medical reasons: No Are you DNR?: No Advance Directives: No Advance Directives Information Provided: Yes Recently lost weight without trying: No Eating poorly because of decreased appetite: No Meds Allergies Allergy/AdvReac Type Severity Reaction Status Date / Time gemfibrozil [GEMFIBROZIL] Allergy Intermediate ELEVATED Verified 03/29/22 11:35 LIVER ENZYMES nifedipine [NIFEDIPINE] Allergy Intermediate ELEVATED Verified 03/29/22 11:35 LIVER ENZYMES verapamil [VERAPAMIL] Allergy Intermediate ELEVATED Verified 03/29/22 11:35 LIVER ENZYMES Home Medications Medication Instructions Recorded Confirmed Last Taken Type allopurinol 100 mg tablet 100 mg PO DAILY 11/29/20 03/25/22 Unknown History fenofibrate micronized 134 mg 134 mg PO DAILY 11/29/20 03/25/22 Unknown History capsule losartan 25 mg tablet 25 mg PO DAILY 11/29/20 03/25/22 03/29/22 History metformin 500 mg tablet 500 mg PO BID 11/29/20 03/25/22 Unknown History multivitamin 1 tab PO QAM 11/29/20 03/25/22 Unknown History vitamin B complex (B 1 tab PO DAILY 11/29/20 03/25/22 Unknown History Complex-Vitamin B12) Exam Airway Mallampati Class: III TM Dist: >3cm Neck ROM: Full Loose/Missing/Broken Teeth: No Heart: RRR Lungs: CTA Assessment and Plan Assessment Anesthesia Assessment: Anesthesia Plan Discussed Final Anesthetic Review NPO: Yes ASA Class: III Final Preanesthetic Review: Meds/Allgs Chart Reviewed, Consent Obtained/Reviewed and Anes Risks/Benef Reviewed Patient Risk: Intermediate Procedure Risk: Low Anesthetic Plan Anesthetic Plan: GA Disposition: Standard PACU
[2022-03-29] VITALS (7 sets, daily range): BP systolic 121–137; BP diastolic 79–90; PULSE 71–83; RESP 12–18; TEMP 36.4–36.7; O2SAT 93–97; BMI 31.3
--- NOTE | 2022-03-29 | ECG_ITS ---
Test Reason : preop Blood Pressure : / mmHG Vent. Rate : 074 BPM Atrial Rate : 074 BPM P-R Int : 156 ms QRS Dur : 086 ms QT Int : 384 ms P-R-T Axes : 036 -26 006 degrees QTc Int : 426 ms Normal sinus rhythm Normal ECG No significant changes when compared with the previous EKG of 24 nov 2012 Referred By: Arline Benz Electronically Signed By:NASIM FORMAN
[2022-03-29 11:30] LABS: Glucose, Whole Blood 122 mg/dL (60-115)
[2022-03-29 11:47] LABS: Hematocrit 41.9 % (42.0-52.0); Hemoglobin 13.3 g/dl (14.0-18.0); Mean Corpuscular HGB Conc 31.7 g/dl (31.0-36.0); Mean Corpuscular Hemoglobin 31.8 pg (27.0-33.0); Mean Corpuscular Volume 100.2 fL (80.0-98.0); Mean Platelet Volume 12.8 fL (9.4-12.4); Platelet Count 168 X10*3/uL (160-400); Red Blood Count 4.18 X10*6/uL (4.60-5.80); Red Cell Distribution Width 12.2 % (11.0-16.0); White Blood Count 6.3 X10*3/uL (4.8-10.8)
[2022-03-29] MEDS: Lactated Ringers 1,000 ML 100 ML IVCONT (11:49)
[2022-03-29 11:57] LABS: Anion Gap 14 (12-20); Blood Urea Nitrogen 14 mg/dL (9-16); Calcium 9.2 mg/dL (8.4-10.2); Carbon Dioxide 24 mmol/L (22-29); Chloride 104 mmol/L (96-108); Creatinine Clr Calc Pharmacy 69.2; Estimated Glomerular Filt Rate > 60; Glucose Fasting 119 mg/dL (60-99); Potassium 4.2 mmol/L (3.3-5.1); Sodium 138 mmol/L (135-145)
--- NOTE | 2022-03-29 12:02 | MHC.SHP ---
Pre-Procedural Eval Section A Date of Service: 03/29/22 Section B Chief Complaint: Umbilical hernia without obstruction or gangrene Details of Present Illness: Has had reducible mass on the umbilicus for 2 years, increasing in size Relevant Family History (Specify if Yes): No Relevant Social History: None Present Medications: see Short Stay Collaborative assessment Medical History: Significant History ( hypertension, kidney stones, hypogonadism) Allergies: Allergies Allergy/AdvReac Type Severity Reaction Status Date / Time gemfibrozil [GEMFIBROZIL] Allergy Intermediate ELEVATED Verified 03/29/22 11:35 LIVER ENZYMES nifedipine [NIFEDIPINE] Allergy Intermediate ELEVATED Verified 03/29/22 11:35 LIVER ENZYMES verapamil [VERAPAMIL] Allergy Intermediate ELEVATED Verified 03/29/22 11:35 LIVER ENZYMES Review of Systems Sugical H&P ROS: Negative: Constitution, Cardiovascular, Respiratory, Neurological, Psychiatric, Hem-Onc, Allergic/Immunologic, Gastrointestinal, Genitourinary, Musculoskeletal, Integumentary, Endocrine and Eyes/Ears/Nose/Throat Exam Surgical H&P Exam: Normal: HEENT, Normal: Heart, Normal: Lungs, Normal: Extremities, Normal: Skin and Normal: Neurological and Significant Findings: Abdomen ( umbilical hernia, 2.5 cm, reducible) Plan Diagnosis/Plan: Unchanged I have reviewed the history and physical and performed a pertinent physical examination on my patient. No changes have occurred unless specified.
--- NOTE | 2022-03-29 13:11 | P.OP_ITS ---
Operative Note Operative Note Date of Service: 03/29/22 Narrative: Preop diagnosis: Umbilical hernia Postop diagnosis: Umbilical hernia Procedure: Repair of umbilical hernia with Ventralex mesh Surgeon: Elver Velasquez Orthopedic Cast Specialist: sandra Trujillo student The patient is a 67-year-old male with a reducible mass on the umbilicus consistent with umbilical hernia. In view of increased in size and discomfort he wanted to proceed with repair. He understood the technique of repair with mesh. He was aware of the risks, benefits, and alternatives He was brought to the operating room. He was placed supine under general anesthesia via laryngeal mask airway. The periumbilical area was prepped and draped in the usual sterile fashion. A surgical time-out was done. The patient received cefazolin 2 g IV preoperatively. I infiltrated the planned line of incision with lidocaine 1%. I made a curvilinear transverse supraumbilical incision using blade 15. This was carried down through the full-thickness of the skin subcutaneous fat with electrocautery until I visualize the hernia. I sharply dissected the hernia off of the umbilicus. I therefore lifted the umbilicus as a flap. This allowed me to he dissect around the hernia circumferentially until was able to the defect. I sharply dissected the hernia contents off of the fascial defect with electrocautery as well as with Metzenbaum scissors to release adhesions until was able to completely reduce this. This contained only omental fat The underside of the fascial defect was clear of adhesions. The fascial defect was about 2 cm. I positioned a small-sized Ventralex mesh beneath the fascia and flattened this. I secured the Prolene straps of the mesh with Prolene 2 sutures to the fascia on both sides. I trimmed the Prolene straps flush. I closed the fascia with a [id number] Maxon 1 stitch. I tacked the umbilicus back to the fascia to re-create the dimple using a Dexon 3-0 stitch. I reapposed the subcutaneous layer with Dexon 3-0 sutures. Skin closure was achieved with Dexon 4-0 subcuticular running stitch. The incision was infiltrated with Marcaine 0.5% for postop analgesia. Dressings were applied. The procedure completed The patient tolerated procedure well. There were no complications noted. Initial fine counts of sponges and instruments were correct. Estimated blood loss about 5 cc . The patient is extubated without difficulty and transferred to recovery room with stable vital signs.
[2022-03-29] MEDS: oxyCODONE HCl Immed Release 5 MG TABLET PO (13:46)
[2022-03-29] MEDS: Acetaminophen 325 MG TABLET 650 MG PO (13:47)
== END 2022-03-29 14:25 | disposition home or self-care (01) ==
PROVIDERS: Nurse Practitioner; Visit Provider Surgery
PROC: (CPT 49585; principal; 2022-03-29 12:30)
DX: K42.9 Umbilical hernia without obstruction or gangrene (principal); D64.9 Anemia, unspecified; J45.909 Unspecified asthma, uncomplicated; I10 Essential (primary) hypertension; G47.33 Obstructive sleep apnea (adult) (pediatric); E78.00 Pure hypercholesterolemia, unspecified; E11.9 Type 2 diabetes mellitus without complications; Z79.84 Long term (current) use of oral hypoglycemic drugs; Z79.899 Other long term (current) drug therapy; Z88.8 Allergy status to other drugs, medicaments and biological substances
CPT/HCPCS: 49585; 36415; 80048; 82947; 85027; 93005; C1781; J0690; J2405; J2795; J3010

== ENCOUNTER → 2022-04-17 08:05 | Outpatient (BNVA) | payer MEDICAID, SELFPAY | PROVIDERS: Referring Provider Registered Nurse Community Health; Visit Provider Nurse Practitioner Family | DX: R13.10 Dysphagia, unspecified (principal); K21.9 Gastro-esophageal reflux disease without esophagitis; K59.04 Chronic idiopathic constipation; Z79.899 Other long term (current) drug therapy | CPT/HCPCS: 99212 ==

== ENCOUNTER 2022-07-10 07:51 | Outpatient (REF) | payer MEDICAID, SELFPAY ==
--- NOTE | ~2022-07-10 | US_ITS ---
EXAMINATION: US RETROPERITONEAL LIMITED (RENAL ONLY) CLINICAL INFORMATION: Calculus of kidney. COMPARISON: Renal ultrasound 07/16/2021. CT abdomen and pelvis 01/11/2021. TECHNIQUE: Real-time imaging of the kidneys. FINDINGS: RIGHT KIDNEY: 10.8 x 6.2 x 6.8 cm (SAG x AP x TRV). The kidney is normal in size and contour. Renal cortical thickness is normal. No calculi or focal parenchymal lesions. No hydronephrosis. LEFT KIDNEY: 11.6 x 4.6 x 6.7 cm (SAG x AP x TRV). The kidney is normal in size, contour, and echogenicity. Renal cortical thickness is normal. There are 2 echogenic densities in the midpole questionable for small stones. No focal parenchymal lesions or hydronephrosis. US/US renal BI IMPRESSION: Question small left renal stones.
== END 2022-07-10 07:52 | disposition home or self-care (01) ==
LOC: HO.US 07:51
PROVIDERS: Visit Provider Urology
DX: N20.0 Calculus of kidney (principal)
CPT/HCPCS: 76775

== ENCOUNTER → 2022-12-16 07:58 | Outpatient (BNVA) | payer MEDICAID, SELFPAY | PROVIDERS: PCP Registered Nurse; Referring Provider Registered Nurse; Visit Provider Nurse Practitioner Family | DX: K21.9 Gastro-esophageal reflux disease without esophagitis (principal); K59.04 Chronic idiopathic constipation; E66.9 Obesity, unspecified; E78.00 Pure hypercholesterolemia, unspecified; Z68.28 Body mass index [BMI] 28.0-28.9, adult; Z76.0 Encounter for issue of repeat prescription | CPT/HCPCS: 99212 ==

== ENCOUNTER → 2022-12-18 12:57 | Outpatient (BNVA) | payer MEDICAID, SELFPAY | PROVIDERS: PCP Registered Nurse; Visit Provider Urology | DX: N20.0 Calculus of kidney (principal); E29.1 Testicular hypofunction | CPT/HCPCS: 99212 ==

== ENCOUNTER 2023-03-10 10:50 | Outpatient (REF) | payer MEDICAID, SELFPAY ==
--- NOTE | ~2023-03-10 | XR_ITS ---
EXAMINATION: XR SHOULDER, RIGHT CLINICAL INFORMATION: Shoulder pain for 2 months. COMPARISON: None available. TECHNIQUE: AP external rotation, Grashey, scapular Y, and axillary views of the right shoulder. FINDINGS: The bones and soft tissues appear unremarkable. No fracture appreciated. Glenohumeral and acromioclavicular alignment is anatomic with normal joint space. No abnormal soft tissue calcifications. XR/XR shoulder RT min 2V IMPRESSION: Normal plain film examination of the right shoulder.
== END 2023-03-10 10:51 | disposition home or self-care (01) ==
LOC: HO.HHCX 10:50
PROVIDERS: Visit Provider Registered Nurse
DX: M25.511 Pain in right shoulder (principal)
CPT/HCPCS: 73030

== ENCOUNTER 2023-06-16 08:03 | Outpatient (AMB) | payer MEDICAID, SELFPAY ==
--- NOTE | 2023-06-16 08:25 | MHC.OFFVIS ---
Intake Vital Signs 06/16/23 08:26 Height 5 ft 8 in Weight 188 lb 11.451 oz BMI 28.7 BP 115/69 Blood Pressure Location Lt brachial Position Sitting Pulse 75 Intake Visit Reasons: Follow up Intake Note: Jm presents in office as a est.patient for a 6month f/u for [facility] PT CC: pt reports having no concerns pt denies any other GI Issues Case Work Aide Required: No Accompanied by: Self / Same As Patient Allergies gemfibrozil [GEMFIBROZIL] Allergy (Intermediate, Verified 06/16/23 08:25) ELEVATED LIVER ENZYMES nifedipine [NIFEDIPINE] Allergy (Intermediate, Verified 06/16/23 08:25) ELEVATED LIVER ENZYMES verapamil [VERAPAMIL] Allergy (Intermediate, Verified 06/16/23 08:25) ELEVATED LIVER ENZYMES HPI Follow up HPI Details LAST VISIT: GERD (gastroesophageal reflux disease) Continue taking omeprazole in the morning and famotidine at bedtime. Discussed with patient the importance of avoiding dietary triggers in late night snacking. Staying upright for minimal 3 hours after meals discussed with patient. Chronic idiopathic constipation Continue taking Senokot. Patient states that he moves his bowels much better now. Patient was encouraged to increase fluid intake and activity to promote better bowel motility. I will see him in 6 months, sooner on as needed basis. Patient is agreeable to this plan and verbalizes understanding of instructions. He was given the opportunity to ask questions and all questions answered. ? Thank you for allowing me to participate in his care Plan Medications Refilled omeprazole 40 mg PO DAILY 90 caps 3RF famotidine 40 mg PO BEDTIME 90 tabs 1RF K21.9 sennosides (Natural Senna Laxative) 8.6 mg PO BEDTIME 90 tabs 3RF constipation K59.00 TODAY'S VISIT Patient is here today for follow-up. Patient reports that since the last mi have seen him he has been doing better. Patient states that he takes omeprazole in the morning before breakfast and famotidine at bedtime. Reports to have no acid reflux, denies any dyspepsia, dysphagia or odynophagia. Patient reports that he is moving his bowels better now that he is taking Senokot. Patient denies any postprandial abdominal bloating or discomfort. Patient denies melena, hematochezia, unintentional weight loss or ribbon like stools. Denies any GI concerning symptoms. COUNTS INCLUDE 234 BEDS AT THE [facility] Medical History Anemia Asthma Diabetes GERD (gastroesophageal reflux disease) Gout High cholesterol Hypertension Hypogonadism in male Obesity MEJIA (obstructive sleep apnea) Tubular adenoma Umbilical hernia Surgical History H/O colonoscopy H/O knee surgery History of umbilical hernia repair (~03/29/22) Family History Mother Diabetes Maternal Grandmother Diabetes Social History Household Members: Family and Children Alcohol intake: current Alcohol intake frequency: does not drink Patient Tobacco Use Status: Never used Tobacco Review of Systems Const Denies weight gain and Denies weight loss ENT Reports no additional complaints, Denies dysphagia and Denies odynophagia Card Reports no additional complaints Resp Reports no additional complaints GI Denies abdominal pain, Denies belching, Denies melena, Denies bloating, Denies change in bowel habits, Denies dysphagia, Denies excessive flatus, Denies dyspepsia, Denies heartburn, Denies diarrhea, Denies loose stools, Denies nausea, Denies odynophagia and Denies vomiting Reports no additional complaints Musc Reports no additional complaints Neuro Reports no additional complaints Psych Reports no additional complaints Endo Reports no additional complaints Physical Exam Vital Signs: Last Vital Signs Pulse 75 06/16/23 08:26 BP 115/69 06/16/23 08:26 BMI result Body Mass Index 28.7 Const General: healthy appearing, no acute distress and well developed Nutritional Appearance: well nourished Orientation/consciousness: patient oriented x3 HEENT Head: Yes normal to inspection, Yes normocephalic and Yes atraumatic Face and sinus: Yes normal facial exam Mouth: Normal oral and palatal mucosa present Throat: Yes posterior oropharynx normal, Yes tonsils normal and Yes uvula midline Eyes General: appearance normal, both eyes and all related structures Neck Neck: Yes normal visual inspection, Yes full ROM and Yes trachea midline Thyroid: Thyroid normal Resp Effort & Inspection: normal respiratory effort, able to speak in complete sentences, no tracheal deviation and symmetric chest movement Auscultation: clear to auscultation bilaterally Cardio Rate: regular rate Heart sounds: S1 normal heart sound present and S2 normal heart sound present GI Inspection: Yes normal to inspection and No distended Palpation (GI): Soft to palpation, not firm, nontender and No hepatosplenomegaly present Auscultation: normal bowel sounds General: Yes no CVA tenderness Back/Spine/Pelvis Back: no CVA tenderness Skin General skin exam: elasticity normal, turgor normal and dry skin Neuro General: patient oriented x3 Psych Appearance: grossly normal Mental Status: mental status grossly normal Speech and movement: Normal speech and movement present Assessment & Plan Assessment & Plan (1) GERD (gastroesophageal reflux disease): Code(s): K21.9 - Gastro-esophageal reflux disease without esophagitis Qualifiers: Esophagitis presence: esophagitis presence not specified Qualified Code(s): K21.9 - Gastro-esophageal reflux disease without esophagitis Plan: Continue current treatment with omeprazole in the morning and famotidine at bedtime. Patient was also encouraged to avoid dietary triggers and late night snacking. Staying upright for minimal 3 hours after meals discussed with patient. (2) Chronic idiopathic constipation: Code(s): K59.04 - Chronic idiopathic constipation Plan: Continue Senokot every day. Patient was encouraged to increase fluid intake and activity to promote better bowel motility. I will see patient in 6 months, sooner on as needed basis is patient is agreeable to this plan and verbalizes understanding of instructions. He was given the opportunity to ask questions and all questions answered. Thank you for allowing me to participate in his care Medications: Refilled omeprazole 40 mg PO DAILY 90 caps 3RF sennosides (Natural Senna Laxative) 8.6 mg PO BEDTIME 90 tabs 3RF constipation K59.00 - Constipation, unspecified famotidine 40 mg PO BEDTIME 90 tabs 3RF K21.9 - Gastro-esophageal reflux disease without esophagitis Coding Level of Care Code Est Pt Level 3 (72913) Diagnoses GERD (gastroesophageal reflux disease) K21.9 Esophagitis presence: esophagitis presence not specified Chronic idiopathic constipation K59.04 Time Spent (min) 25 Comment 15 minutes spent with patient and additional 10 minutes spent reviewing his records
[2023-06-16 08:26] VITALS: BP 115/69; PULSE 75; BMI 28.7
== END 2023-06-16 08:58 | disposition home or self-care (01) ==
LOC: HO.HGI 08:03
PROVIDERS: PCP Registered Nurse; Visit Provider Nurse Practitioner Family
DX: K21.9 Gastro-esophageal reflux disease without esophagitis (principal); K59.04 Chronic idiopathic constipation
CPT/HCPCS: 99213

== ENCOUNTER → 2023-06-16 08:03 | Outpatient (BNVA) | payer MEDICAID, SELFPAY | PROVIDERS: PCP Registered Nurse; Visit Provider Nurse Practitioner Family | DX: K21.9 Gastro-esophageal reflux disease without esophagitis (principal); K59.04 Chronic idiopathic constipation; Z79.899 Other long term (current) drug therapy | CPT/HCPCS: 99212; 99213 ==

== ENCOUNTER 2023-12-01 07:49 | Outpatient (AMB) | payer MEDICAID, SELFPAY ==
--- NOTE | 2023-12-01 07:57 | A.OFFVIS_ITS ---
Intake Vital Signs 12/01/23 08:01 Height 5 ft 8 in Weight 191 lb BMI 29.0 BP 128/80 Blood Pressure Location Lt brachial Position Sitting Respiration 16 Pulse 97 Intake Visit Reasons: 6 month follow up Intake Note: Patient follow up for Constipation. Patient denies any GI issues. Water Restoration Technician Required: No Accompanied by: Self / Same As Patient Allergies gemfibrozil [GEMFIBROZIL] Allergy (Intermediate, Verified 12/01/23 07:56) ELEVATED LIVER ENZYMES nifedipine [NIFEDIPINE] Allergy (Intermediate, Verified 12/01/23 07:56) ELEVATED LIVER ENZYMES verapamil [VERAPAMIL] Allergy (Intermediate, Verified 12/01/23 07:56) ELEVATED LIVER ENZYMES HPI 6 month follow up HPI Details LAST VISIT: GERD (gastroesophageal reflux disease) Continue current treatment with omeprazole in the morning and famotidine at bedtime. Patient was also encouraged to avoid dietary triggers and late night snacking. Staying upright for minimal 3 hours after meals discussed with milton alicia. Chronic idiopathic constipation Continue Senokot every day. Patient was encouraged to increase fluid intake and activity to promote better bowel motility. I will see patient in 6 months, sooner on as needed basis is patient is agreeable to this plan and verbalizes understanding of instructions. He was given the opportunity to ask questions and all questions answered. ? Thank you for allowing me to participate in his care Plan Medications Refilled omeprazole 40 mg PO DAILY 90 caps 3RF sennosides (Natural Senna Laxative) 8.6 mg PO BEDTIME 90 tabs 3RF constipation K59.00 - Constipation, unspecified famotidine 40 mg PO BEDTIME 90 tabs 3RF K21.9 - Gastro-esophageal reflux disease without esophagitis TODAY'S VISIT Patient is here today for follow-up. Patient reports that he has been doing much better. Takes omeprazole in the morning and famotidine at bedtime. His symptoms of acid reflux are currently suppressed it occasionally when patient eats something spicy he might have symptoms. Trying to avoid food that it spicy and fried. Patient reports that he is moving his bowels better now that he is taking Senokot. Denies any melena, , hematochezia, unintentional weight loss or ribbon like stools. Patient denies any dyspepsia, dysphagia or odynophagia. Patient denies any GI concerning symptoms today. [facility] Medical History Anemia Asthma Diabetes GERD (gastroesophageal reflux disease) Gout High cholesterol Hypertension Hypogonadism in male Obesity MEJIA (obstructive sleep apnea) Tubular adenoma Umbilical hernia Surgical History History of umbilical hernia repair (~03/29/22) H/O colonoscopy H/O knee surgery Family History Mother Diabetes Maternal Grandmother Diabetes Social History Household Members: Family and Children Alcohol intake: current Alcohol intake frequency: does not drink Patient Tobacco Use Status: Never used Tobacco Review of Systems Const Denies weight gain and Denies weight loss ENT Reports no additional complaints, Denies dysphagia and Denies odynophagia Card Reports no additional complaints Resp Reports no additional complaints GI Denies abdominal pain, Denies belching, Denies melena, Denies bloating, Denies change in bowel habits, Denies dysphagia, Denies excessive flatus, Denies dyspepsia, Reports heartburn (Occasional with spicy food), Denies diarrhea, Denies loose stools, Denies nausea, Denies odynophagia and Denies vomiting Reports no additional complaints Musc Reports no additional complaints Neuro Reports no additional complaints Psych Reports no additional complaints Endo Reports no additional complaints Physical Exam Vital Signs: Last Vital Signs Pulse 97 12/01/23 08:01 Resp 16 12/01/23 08:01 BP 128/80 12/01/23 08:01 BMI result Body Mass Index 29.0 Const General: healthy appearing, no acute distress and well developed Nutritional Appearance: well nourished Orientation/consciousness: patient oriented x3 Resp Effort & Inspection: normal respiratory effort, able to speak in complete sentences, no tracheal deviation and symmetric chest movement Auscultation: clear to auscultation bilaterally Cardio Rate: regular rate GI Inspection: Yes normal to inspection and No distended Palpation (GI): Soft to palpation, not firm, nontender and No hepatosplenomegaly present Auscultation: normal bowel sounds General: Yes no CVA tenderness Back/Spine/Pelvis Back: no CVA tenderness Skin General skin exam: elasticity normal, turgor normal and dry skin Neuro General: patient oriented x3 Psych Appearance: grossly normal Mental Status: mental status grossly normal Assessment & Plan Assessment & Plan (1) GERD (gastroesophageal reflux disease): Code(s): K21.9 - Gastro-esophageal reflux disease without esophagitis Qualifiers: Esophagitis presence: esophagitis presence not specified Qualified Co de(s): K21.9 - Gastro-esophageal reflux disease without esophagitis (2) Chronic idiopathic constipation: Code(s): K59.04 - Chronic idiopathic constipation Plan Continue current regimen with omeprazole and famotidine. Patient will continue avoiding dietary triggers late night snacking. Staying upright for minimum 3 hours after meals discussed with patient. Continue Senokot. Continue high- fiber diet. I will see patient in 1 year, sooner on as needed basis. Patient will call the office if you have any concerning symptoms. Patient is agreeable to plan of care and verbalizes understanding of instructions. He was given the opportunity to ask questions all questions answered. Thank you for allowing me to participate in his care Medications: Refilled sennosides (Natural Senna Laxative) 8.6 mg PO BEDTIME 90 tabs 3RF constipation K59.00 - Constipation, unspecified famotidine 40 mg PO BEDTIME 90 tabs 3RF K21.9 - Gastro-esophageal reflux disease without esophagitis Coding Level of Care Code Est Pt Level 3 (39215) Diagnoses Gastroesophageal reflux disease, unspecified whether esophagitis present K21.9 Esophagitis presence: esophagitis presence not specified Chronic idiopathic constipation K59.04 Time Spent (min) 25 Comment 15 minutes spent with patient and additional 10 minutes spent reviewing his records
[2023-12-01 08:01] VITALS: BP 128/80; PULSE 97; RESP 16; BMI 29.0
== END 2023-12-01 08:16 | disposition home or self-care (01) ==
PROVIDERS: PCP Registered Nurse; Visit Provider Nurse Practitioner Family
DX: K21.9 Gastro-esophageal reflux disease without esophagitis (principal); K59.04 Chronic idiopathic constipation
CPT/HCPCS: 99213

== ENCOUNTER → 2023-12-01 07:49 | Outpatient (BNVA) | payer MEDICAID, SELFPAY | PROVIDERS: PCP Registered Nurse; Visit Provider Nurse Practitioner Family | DX: K21.9 Gastro-esophageal reflux disease without esophagitis (principal); K59.04 Chronic idiopathic constipation | CPT/HCPCS: 99212 ==

== ENCOUNTER 2024-04-27 07:26 | Outpatient (REF) | payer MEDICAID, SELFPAY ==
[2024-04-27 08:36] LABS: Basophils Percent Auto 0.7 % (0-2); Eosinophils Absolute Auto 0.1 X10*3/uL (0.0-0.4); Eosinophils Percent Auto 1.3 % (0-4); Hematocrit 40.9 % (42.0-52.0); Hemoglobin 13.5 g/dl (14.0-18.0); Imm Gran Abs Auto 0.02 X10*3/uL (0.00-0.03); Imm Gran Pct Auto 0.4 % (0.0-0.4); Lymphocytes Absolute Auto 1.6 X10*3/uL (1.2-4.9); Lymphocytes Percent Auto 30.3 % (20-40); MANUAL DIFF FLAG SCAN; Mean Corpuscular Hemoglobin 32.9 pg (27.0-33.0); Mean Corpuscular Volume 99.8 fL (80.0-98.0); Monocytes Absolute Auto 0.4 X10*3/uL (0.1-1.2); Monocytes Percent Auto 6.7 % (2-11); Neutrophils Absolute Auto 3.3 x10*3/uL (2.0-8.3); Neutrophils Percent Auto 60.6 % (45-73); PLT CLUMP 1; Red Cell Distribution Width 12.4 % (11.0-16.0); SCAN SMEAR FLAG 1
[2024-04-27 09:00] LABS: Mean Platelet Volume 13.5 fL (9.4-12.4); Platelet Count 176 X10*3/uL (160-400); White Blood Count 5.4 X10*3/uL (4.8-10.8)
[2024-04-27 09:01] LABS: SLIDE REVIEW VERIFIED
[2024-04-27 09:03] LABS: Microalbum/Creatinine Ratio Ur 15.8 ug/mg cr (<30)
[2024-04-27 09:05] LABS: Alanine Aminotransferase 19 U/L (0-40); Albumin Level 4.5 g/dL (3.5-5.0); Alkaline Phosphatase 50 U/L (39-117); Anion Gap 13 (12-20); Aspartate Amino Transferase 22 U/L (5-37); Bilirubin Total 0.7 mg/dL (0.0-1.0); Blood Urea Nitrogen 15 mg/dL (9-16); Calcium 9.6 mg/dL (8.4-10.2); Carbon Dioxide 24 mmol/L (22-29); Chloride 107 mmol/L (96-108); Cholesterol 157 mg/dL (<200); Estimated Glomerular Filt Rate > 60; Glucose Random 109 mg/dL (60-115); HDL Cholesterol 54 mg/dL (>40); LDL Cholesterol Calculated 88 mg/dL (<100); Potassium 4.3 mmol/L (3.3-5.1); Sodium 140 mmol/L (135-145); Total Protein 7.6 g/dL (6.5-8.0); Triglycerides 78 mg/dL (<150)
[2024-04-27 09:22] LABS: HBS Num1 0.42 mIU/mL (0-7.99); HBc Num1 0.11 S/CO (0.00-0.79); HBsAGNum1 0.24 S/CO (0.00-0.99); HIV AB/AG Nonreactive (Nonreactive); HIV Num 1 0.05 S/CO (0.00-0.99); Hepatitis B Core Antibody Nonreactive (Nonreactive); Hepatitis B Surface Antigen Negative (Negative); ~Hepatitis B Surface Antibody NONREACTIVE (Nonreactive)
[2024-04-27 09:23] LABS: TSH reflex Free T4 1.54 uIU/mL (0.32-4.0)
[2024-04-27 11:27] LABS: Vitamin B12 1337 pg/mL (200-900)
[2024-04-29 06:39] LABS: RPR Rapid Plasma Reagin NON-REACTIVE (NON-REACTIVE)
[2024-04-29 15:04] LABS: HCV Log PCR <1.18 NOT DETECTED Log IU/mL (NOT DETECTED); HepC Viral Load <15 NOT DETECTED IU/mL (NOT DETECTED)
== END 2024-04-27 07:27 | disposition home or self-care (01) ==
LOC: HO.LAB 07:26
PROVIDERS: Registered Nurse; PCP Family Medicine; Visit Provider Family Medicine
DX: Z00.00 Encounter for general adult medical examination without abnormal findings (principal); E11.9 Type 2 diabetes mellitus without complications; Z12.5 Encounter for screening for malignant neoplasm of prostate
CPT/HCPCS: 36415; 80053; 80061; 82043; 82570; 82607; 84153; 84443; 85025; 86592; 86704; 86706; 87340; 87389; 87522

== ENCOUNTER 2024-08-20 08:00 | Outpatient (REF) | payer MEDICAID, SELFPAY ==
[2024-08-20 08:15] LABS: MANUAL DIFF FLAG NO
[2024-08-20 08:54] LABS: Basophils Absolute Auto 0.1 X10*3/uL (0.0-0.2); Eosinophils Absolute Auto 0.1 X10*3/uL (0.0-0.4); Eosinophils Percent Auto 1.1 % (0-4); Hematocrit 41.4 % (42.0-52.0); Hemoglobin 13.7 g/dl (14.0-18.0); Imm Gran Abs Auto 0.02 X10*3/uL (0.00-0.03); Imm Gran Pct Auto 0.4 % (0.0-0.4); Lymphocytes Absolute Auto 1.7 X10*3/uL (1.2-4.9); Lymphocytes Percent Auto 32.4 % (20-40); Mean Corpuscular HGB Conc 33.1 g/dl (31.0-36.0); Mean Corpuscular Hemoglobin 32.9 pg (27.0-33.0); Mean Corpuscular Volume 99.5 fL (80.0-98.0); Mean Platelet Volume 13.2 fL (9.4-12.4); Monocytes Absolute Auto 0.4 X10*3/uL (0.1-1.2); Monocytes Percent Auto 7.1 % (2-11); Platelet Count 179 X10*3/uL (160-400); Red Blood Count 4.16 X10*6/uL (4.60-5.80); Red Cell Distribution Width 12.2 % (11.0-16.0); White Blood Count 5.2 X10*3/uL (4.8-10.8)
[2024-08-20 09:27] LABS: Iron 119 mcg/dL (45-160); Percent Iron Saturation 34 % (15-50); Total Iron Binding Capacity 355 mcg/dL (228-428); Unsaturated Iron Binding 236 ug/dL
[2024-08-20 09:46] LABS: Ferritin 426 ng/mL (20-250); Vitamin D 25-OH Total 10.2 ng/mL (>30)
[2024-08-20 09:50] LABS: Folate 7.6 ng/mL (> or = 4.0); Vitamin B12 789 pg/mL (200-900)
== END 2024-08-20 08:01 | disposition home or self-care (01) ==
LOC: HO.LAB 08:00
PROVIDERS: PCP Registered Nurse; Visit Provider Registered Nurse
DX: D64.9 Anemia, unspecified (principal)
CPT/HCPCS: 36415; 82306; 82607; 82728; 82746; 83540; 85025

== ENCOUNTER 2024-09-21 09:48 | Outpatient (REF) | payer MEDICAID, SELFPAY | END 2024-09-21 09:49 | disposition home or self-care (01) | LOC: HO.US 09:48 | PROVIDERS: PCP Registered Nurse; Visit Provider Registered Nurse | DX: R79.89 Other specified abnormal findings of blood chemistry (principal) | CPT/HCPCS: 76700; 76981 ==

== ENCOUNTER → 2024-09-21 09:50 | Outpatient (BNV) | payer MEDICAID, SELFPAY | PROVIDERS: PCP Registered Nurse; Visit Provider Radiology Diagnostic Radiology | DX: R78.89 Finding of other specified substances, not normally found in blood (principal) | CPT/HCPCS: 76700 ==

== ENCOUNTER 2025-02-16 07:01 | Outpatient (REF) | payer MEDICAID, SELFPAY ==
--- NOTE | ~2025-02-16 | XR_ITS ---
CLINICAL HISTORY: Chronic low back pain --- Additional Notes or Special Instructions: WO 5 views lumbar spine Comparison: None Findings: Normal alignment. No acute fractures or dislocation. There is multiple level degenerative disc and facet change. IMPRESSION: No acute findings. This document has been electronically signed by: Mckay Murillo MD on 02/18/2025 08:51:56
--- OUTSIDE RECORDS SUMMARY | 2025-02-16 07:04 | XMS_ITS | Encounter Summary ---
Author Organization [facility] Address [address] [place] [address] Care Team Providers Care Medical Coordinator Pesticide Use Name Role Phone Catherine Duran Primary Care Provider [phone] Garret Patrick MD Primary Care Provider [phone] Reason for Visit * Reason Comments Med Refill Encounter Details Date Type Department Care Team (Late st Contact Info) Description 12/01/2022 Refill [facility] MEDICINE [address] [place], [place] [phone] Catherine Duran FNP [address] [place], [place] [phone] Routine health maintenance Social History Tobacco Use Types Packs/Day Years Used Date Smoking Tobacco: Never Smokeless Tobacco: Never Alcohol Use Standard Drinks/Week Comments Never 0 (1 standard drink = 0.6 oz pur e alcohol) Sex and Gender Information Value Date Recorded Sex Assigned at Male 08/19/2022 10:19 AM EDT Legal Sex Male 10:19 AM EDT Gender Identity Male 08/19/2022 10:19 AM EDT Sexual Orientation Straight 08/19/2022 10 :19 AM EDT documented as of this encounter Plan of Treatment Upcoming Encounters Date Type Department Care Team (Late st Contact Info) Description 05/27/2025 9:00 AM EDT Office Visit [facility] MEDICINE [address] [place], [place] [phone] Name, MD Garret [address] [place], [place] [phone] documented as of this encounter Visit Diagnoses Diagnosis Routine health maintenance Unspecified examination documented in this encounter Additional Health Concerns Assessment Noted Time PHQ-9 Depression Total Score: 0 10/09/20 22 2:25 PM EST documented as of this encounter Care Teams Medical Coordinator Pesticide Use Relationship Specialty Start Date End Date Catherine Duran FNP [address] [place] [address] PCP - General Family Medicine 06/18/22 11/11/24 Name, MD Garret [address] [place] [address] PCP - General Internal Medicine 11/12/24 documented as of this encounter
--- OUTSIDE RECORDS SUMMARY | 2025-02-16 07:04 | XMS_ITS | Encounter Summary ---
Author Organization [employer] [facility] Address [address] [place] [address] [place] [address] Care Team Providers Care Systems Eng Name Role Phone Catherine Duran Primary Care Provider Garret Patrick MD Primary Care Provider [phone] Reason for Visit * Reason Comments Med Refill Encounter Details Date Type Department Care Team ([facility] Contact Info) Description 02/26/2023 Refill [facility] MED & PEDS [address] [place], [place] [phone] Tram Noble FNP [address] [place] [address] Dept [place] [address] Gout, unspecified cause, unspecified chronicity, unspecified site Social History Tobacco Use Types Packs/Day Years [...] Upcoming Encounters Date Type Department Care Team ([facility] Contact Info) Description 05/27/2025 9:00 AM EDT Office Visit [facility] MEDICINE [address] [place], [place] [phone] Name, MD Garret [address] [place], [place] [phone] documented as of this encounter Visit Diagnoses Diagnosis Gout, unspecified cause, unspecified chronicity, unspecified site documented in this encounter Additional Health Concerns Assessment Noted Time PHQ-9 Depression Total Score: 0 10/09/20 22 2:25 PM EST documented as of this encounter Care Teams Systems Eng Relationship Specialty Start Date End Date Catherine Duran FNP [address] [place] [address] PCP - General Family Medicine 06/18/22 11/11/24 Name, MD Garret [address] [place] [address] PCP - General Internal Medicine 11/12/24 documented as of this encounter
--- OUTSIDE RECORDS SUMMARY | 2025-02-16 07:04 | XMS_ITS | Encounter Summary ---
Author Organization [employer] [facility] Address [address] [facility] [address] [place] [address] Care Team Providers Care Machine Tool Designer Name Role Phone Catherine Duran Primary Care Provider [phone] Garret Patrick MD Primary Care Provider [phone] Reason for Visit * Reason Comments Med Refill Encounter Details Date Type Department Care Team (Late st Contact Info) Description 11/13/2022 Refill [facility] MEDICINE [address] [place], [place] [phone] Catherine Duran FNP [address] [place], [place] [phone] Routine health maintenance Social History Tobacco Use [...] Encounters Date Type Department Care Team (Late Contact Info) Description 05/27/2025 9:00 AM EDT Office Visit [facility] MEDICINE [address] [place], [place] [phone] Name, MD Garret [address] [place], [place] [phone] documented as of this encounter Visit Diagnoses Diagnosis Routine health maintenance Unspecified examination documented in this encounter Additional Health Concerns Assessment Noted Time PHQ-9 Depression Total Score: 0 10/09/20 22 2:25 PM EST documented as of this encounter Care Teams Machine Tool Designer Relationship Specialty Start Date End Date Catherine Duran FNP [address] [place] [address] PCP - General Family Medicine 06/18/22 11/11/24 Name, MD Garret [address] [place] [address] PCP - General Internal Medicine 11/12/24 documented as of this encounter
--- OUTSIDE RECORDS SUMMARY | 2025-02-16 07:04 | XMS_ITS | Encounter Summary ---
Author Organization [employer] [facility] Address [address] [place] [address] [place] [address] Care Team Providers Care Climatology Professor Name Role Phone Catherine Duran Primary Care Provider [phone] Garret Patrick MD Primary Care Provider [phone] Reason for Visit * Reason Comments Med Refill Encounter Details Date Type Department Care Team (Late Contact Info) Description 01/25/2023 Refill [facility] CHC MED & PEDS [address] [place], [place] [phone] Tram Noble FNP [address] [place] [address] Dept [place] [address] Gout, unspecified cause, unspecified chronicity, unspecified site [...] Description 05/27/2025 9:00 AM EDT Office Visit [facility] MEDICINE [address] [place], [place] [phone] Name, MD Garret [address] [place], [place] [phone] documented as of this encounter Visit Diagnoses Diagnosis Gout, unspecified cause, unspecified chronicity, unspecified site documented in this encounter Additional Health Concerns Assessment Noted Time PHQ-9 Depression Total Score: 0 10/09/20 22 2:25 PM EST documented as of this encounter Care Teams Climatology Professor Relationship Specialty Start Date End Date Catherine Duran FNP [address] [place] [address] PCP - General Family Medicine 06/18/22 11/11/24 Name, MD Garret [address] [place] [address] PCP - General Internal Medicine 11/12/24 documented as of this encounter
--- OUTSIDE RECORDS SUMMARY | 2025-02-16 07:04 | XMS_ITS | Encounter Summary ---
Author Organization [employer] [facility] Address [address] [facility] [address] [place] [address] Care Team Providers Care Radio Sportscaster Name Role Phone Catherine Duran Primary Care Provider [phone] Garret Patrick MD Primary Care Provider [phone] Reason for Visit * Reason Comments Med Refill Encounter Details Date Type Department Care Team ([facility] Contact Info) Description 10/15/2022 Refill [facility] MEDICINE [address] [place], [place] [phone] Catherine Duran FNP [address] [place] [phone] Pain Social History Tobacco Use Types Packs/Day Years [...] Orientation Straight 08/19/2022 10 :19 AM EDT COVID-19 Exposure Response Date Recorded In the last 10 days, have yo u been in contact with someone who was confirmed or suspected to have Coronavirus/COVID-19? No / Unsure 10/09/2022 2:02 PM EST documented as of this encounter Plan of Treatment Upcoming Encounters Date Type Department Care Team ([facility] Contact Info) Description 05/27/2025 9:00 AM EDT Office Visit [facility] MEDICINE [address] [place] [address] Name, MD Garret [address] [place] [address] documented as of this encounter Visit Diagnoses Diagnosis Pain Generalized pain documented in this encounter Additional Health Concerns Assessment Noted Time PHQ-9 Depression Total Score: 0 10/09/20 22 2:25 PM EST documented as of this encounter Care Teams Radio Sportscaster Relationship Specialty Start Date End Date Catherine Duran FNP [address] [place] [address] PCP - General Family Medicine 06/18/22 11/11/24 Name, MD Garret [address] [place] [address] PCP - General Internal Medicine 11/12/24 documented as of this encounter
--- OUTSIDE RECORDS SUMMARY | 2025-02-16 07:04 | XMS_ITS | Encounter Summary ---
Author Organization [employer] [facility] Address [address] [facility] [address] [place] [address] Care Team Providers Care Falsework Builder Name Role Phone Catherine Duran Primary Care Provider [phone] Garret Patrick MD Primary Care Provider [phone] Reason for Visit * Reason Comments Med Refill Encounter Details Date Type Department Care Team (Late st Contact Info) Description 02/05/2023 Refill [facility] MEDICINE [address] [place] [address] Catherine Duran FNP [address] [place], [place] [phone] Tinea Social History Tobacco Use Types Packs/Day Years [...] Description 05/27/2025 9:00 AM EDT Office Visit [facility] MEDICINE [address] [place], [place] [phone] Name, MD Garret [address] [place] [address] documented as of this encounter Visit Diagnoses Diagnosis Tinea Dermatophytosis of unspecified site documented in this encounter Additional Health Concerns Assessment Noted Time PHQ-9 Depression Total Score: 0 10/09/20 22 2:25 PM EST documented as of this encounter Care Teams Falsework Builder Relationship Specialty Start Date End Date Catherine Duran FNP [address] [place] [address] PCP - General Family Medicine 06/18/22 11/11/24 Name, MD Garret [address] [place] [address] PCP - General Internal Medicine 11/12/24 documented as of this encounter
--- OUTSIDE RECORDS SUMMARY | 2025-02-16 07:04 | XMS_ITS | Encounter Summary ---
Author Organization [employer] Address [address] [facility] 7t [place] [address] Care Team Providers Care Textile Technical Officer Name Role Phone Name, Garret VALENCIA Primary Care Provider Reason for Visit * Reason Comments Med Refill Encounter Details Date Type Department Care Team ([facility] st Contact Info) Description 12/28/2024 Refill [facility] MEDICINE 230 [place] [address] Catherine Duran FNP 505 [place] [address] Sleep difficulties Social History Tobacco Use Types Packs/Day Years Used Date Smoking Tobacco: Never Smokeless Tobacco: Never Alcohol Use Standard Drinks/Week Comments Never 0 (1 standard drink = 0.6 oz pur e alcohol) Depression Answer Date Recorded Patient Health Questionnaire-9 Score 5 04/21/2024 Patient Health Questionnaire-9 Score 5 04/21/2024 Last PHQ-9: Questionnaire Data Not on file 0 04/21/2024 Housing Stability Answer Date Recorded What is your housing situation today? I have yousif wall 09/01/[address] you li ve. Do you have problems with any of the following? Mold 09/01/2024 Food Insecurity Answer Date Recorded Within the past 12 months, y ou worried that your food would run out before you got money to buy more: Never True 04/21/2024 Within the past 12 months,th e food you bought just didn't last and you didn't have enough money to get more: Never True 12/2023 Transportation Answer Date Recorded In the past 12 months, has l ack of transportation kept you from medical appts, meetings, work or from getting things needed for daily living? No 09/01/2024 Utilities Answer Date Recorded In the past 12 months, has t he electric, gas, oil or water company threatened to shut off services in your home? No 09/01/2024 Depression Answer Date Recorded Patient Health Questionnaire-2 Score 2 04/21/2024 Internet Access Answer Date Recorded Internet Access Q1 I am not sure 09/01/2024 Internet Access Q2 Not on file 09/01/2024 Sex and Gender Information Value Date Recorded [...] 9:00 AM EDT Office Visit [facility] MEDICINE [address] [place] [address] Name, MD Garret 230 [place] [address] documented as of this encounter Visit Diagnoses Diagnosis Sleep difficulties documented in this encounter Additional Health Concerns Assessment Noted Time PHQ-9 Depression Total Score: 5 04/21/20 24 9:11 AM EDT documented as of this encounter Care Teams Textile Technical Officer Relationship Specialty Start Date End Date NameGarret MD [address] [place] [address] PCP - General Internal Medicine 11/12/24 documented as of this encounter
--- OUTSIDE RECORDS SUMMARY | 2025-02-16 07:04 | XMS_ITS | Encounter Summary ---
Author Organization [employer] [facility] Address [address] [place] [address] [place] [address] Care Team Providers Care Boarder Hand Name Role Phone Catherine Duran Primary Care Provider Garret Patrick MD Primary Care Provider [phone] Reason for Visit * Reason Comments Med Refill Encounter Details Date Type Department Care Team (Late Contact Info) Description 02/04/2023 Refill [facility] MED & PEDS 505 [place], [place] [phone] Tram Noble FNP [address] [place] [address] [place] [address] Gout, unspecified cause, unspecified chronicity, unspecified site [...] Description 05/27/2025 9:00 AM EDT Office Visit [facility] MEDICINE 230 [place], [place] [phone] Name, MD Garret 230 [place], [place] [phone] documented as of this encounter Visit Diagnoses Diagnosis Gout, unspecified cause, unspecified chronicity, unspecified site documented in this encounter Additional Health Concerns Assessment Noted Time PHQ-9 Depression Total Score: 0 10/09/20 22 2:25 PM EST documented as of this encounter Care Teams Boarder Hand Relationship Specialty Start Date End Date Catherine Duran FNP 230 [place] [address] PCP - General Family Medicine 06/18/22 11/11/24 Name, MD Garret 230 [place] [address] PCP - General Internal Medicine 11/12/24 documented as of this encounter
--- OUTSIDE RECORDS SUMMARY | 2025-02-16 07:04 | XMS_ITS | Encounter Summary ---
Author Organization [employer] [facility] Address [address] [place] [address] [place] [address] Care Team Providers Care Mold Blower Name Role Phone Catherine Duran Primary Care Provider [phone] Garret Patrick MD Primary Care Provider [phone] Reason for Visit * Reason Comments Med Refill Encounter Details Date Type Department Care Team ([facility] Contact Info) Description 02/22/[address] [facility] CHC MED & PEDS 505 [place], [place] [phone] Tram Noble FNP [address] [place] [address] Dept [place] [address] Gout, unspecified cause, unspecified chronicity, unspecified site [...] Upcoming Encounters Date Type Department Care Team ([facility] Contact Info) Description 05/27/2025 9:00 AM EDT Office Visit [facility] MEDICINE [address] [place], [place] [phone] Name, MD Garret 230 [place], [place] [phone] documented as of this encounter Visit Diagnoses Diagnosis Gout, unspecified cause, unspecified chronicity, unspecified site documented in this encounter Additional Health Concerns Assessment Noted Time PHQ-9 Depression Total Score: 0 10/09/20 22 2:25 PM EST documented as of this encounter Care Teams Mold Blower Relationship Specialty Start Date End Date Catherine Duran FNP [address] [place] [address] PCP - General Family Medicine 06/18/22 11/11/24 Name, MD Garret 230 [place] [address] PCP - General Internal Medicine 11/12/24 documented as of this encounter
--- OUTSIDE RECORDS SUMMARY | 2025-02-16 07:04 | XMS_ITS | Encounter Summary ---
Author Organization [employer] [facility] Address [address] [facility] 7 [place] [address] Care Team Providers Care Travel Professional Name Role Phone Catherine Duran Primary Care Provider [phone] Garret Patrick MD Primary Care Provider [phone] Reason for Visit * Reason Comments Med Refill Encounter Details Date Type Department Care Team (Late st Contact Info) Description 01/27/2023 Refill [facility] MEDICINE 230 [place], [place] [phone] Catherine Duran FNP 505 [place], [place] [phone] Routine health maintenance Social History Tobacco Use [...] Description 05/27/2025 9:00 AM EDT Office Visit [facility] MEDICINE 230 [place], [place] [phone] Name, MD Garret 230 [place] [address] documented as of this encounter Visit Diagnoses Diagnosis Routine health maintenance Unspecified examination documented in this encounter Additional Health Concerns Assessment Noted Time PHQ-9 Depression Total Score: 0 10/09/20 22 2:25 PM EST documented as of this encounter Care Teams Travel Professional Relationship Specialty Start Date End Date Catherine Duran FNP 230 [place] [address] PCP - General Family Medicine 06/18/22 11/11/24 Name, MD Garret 230 [place] [address] PCP - General Internal Medicine 11/12/24 documented as of this encounter
--- OUTSIDE RECORDS SUMMARY | 2025-02-16 07:04 | XMS_ITS | Encounter Summary ---
Author Organization [employer] [facility] Address [address] [facility] 7t [place] [address] Care Team Providers Care Lap Winding Machine Operator Name Role Phone Catherine Duran Primary Care Provider Garret Patrick MD Primary Care Provider [phone] Reason for Visit * Reason Comments Med Refill Encounter Details Date Type Department Care Team ([facility] Contact Info) Description 10/13/2022 Refill [facility] MEDICINE 230 [place], [place] [phone] Catherine Duran FNP [address] [place] [address] [phone] Pain Social History Tobacco Use Types Packs/Day [...] Upcoming Encounters Date Type Department Care Team ([facility] Contact Info) Description 05/27/2025 9:00 AM EDT Office Visit [facility] MEDICINE 230 [place] [address] Name, MD Garret [address] [place] [address] documented as of this encounter Visit Diagnoses Diagnosis Pain Generalized pain documented in this encounter Additional Health Concerns Assessment Noted Time PHQ-9 Depression Total Score: 0 10/09/20 22 2:25 PM EST documented as of this encounter Care Teams Lap Winding Machine Operator Relationship Specialty Start Date End Date Catherine Duran FNP [address] [place] [address] PCP - General Family Medicine 06/18/22 11/11/24 Name, MD Garret [address] [place] [address] PCP - General Internal Medicine 11/12/24 documented as of this encounter
--- OUTSIDE RECORDS SUMMARY | 2025-02-16 07:04 | XMS_ITS | Encounter Summary ---
Author Organization [employer] Address [address] [place] [address] 7t [place] [address] Care Team Providers Care Tank Truck Mechanic Name Role Phone Catherine Duran Primary Care Provider [phone] Name, Garret VALENCIA Primary Care Provider [phone] Reason for Visit * Reason Comments Med Refill Encounter Details Date Type Department Care Team ([facility] st Contact Info) Description 03/10/2023 Refill [facility] MED & PEDS 505 [place] [address] Tram Noble FNP [address] [place] [address] Dept [place] [address] Gout, unspecified cause, unspecified chronicity, unspecified site Social History Tobacco Use Types Packs/Day Years Used Date Smoking Tobacco: Never Smokeless Tobacco: Never Alcohol Use Standard Drinks/Week Comments Never 0 (1 standard drink = 0.6 oz pur e alcohol) Depression Answer Date Recorded Patient Health Questionnaire-9 Score 5 03/10/2023 Depression Answer Date Recorded Patient Health Questionnaire-2 Score 1 03/10/2023 Sex and Gender Information Value Date Recorded [...] suspected to have Coronavirus/COVID-19? No / Unsure 03/10/2023 9:10 AM EDT documented as of this encounter Plan of Treatment Upcoming Encounters Date Type Department Care Team (Late st Contact Info) Description 05/27/2025 9:00 AM EDT Office Visit [facility] MEDICINE 230 [place] [address] Name, [place] [address] documented as of this encounter Visit Diagnoses Diagnosis Gout, unspecified cause, unspecified chronicity, unspecified site documented in this encounter Additional Health Concerns Assessment Noted Time PHQ-9 Depression Total Score: 5 03/10/20 23 9:36 AM EDT documented as of this encounter Care Teams Tank Truck Mechanic Relationship Specialty Start Date End Date Catherine Duran FNP [address] [place] [address] PCP - General Family Medicine 06/18/22 11/11/24 Name, MD Garret [address] [place] [address] PCP - General Internal Medicine 11/12/24 documented as of this encounter
--- OUTSIDE RECORDS SUMMARY | 2025-02-16 07:04 | XMS_ITS | Encounter Summary ---
Author Organization [employer] [facility] Address [address] [facility] 7 [place] [address] Care Team Providers Care Insights Manager Name Role Phone Catherine Duran Primary Care Provider [phone] Garret Patrick MD Primary Care Provider [phone] Reason for Visit * Reason Comments Med Refill Encounter Details Date Type Department Care Team (Late st Contact Info) Description 12/19/2022 Refill [facility] 230 [place], [place] [phone] Catherine Duran FNP 505 [place], [place] [phone] Routine health maintenance Social History Tobacco Use [...] 9:00 AM EDT Office Visit [facility] 230 [place], [place] [phone] Name, MD Garret 230 [place], [place] [phone] documented as of this encounter Visit Diagnoses Diagnosis Routine health maintenance Unspecified examination documented in this encounter Additional Health Concerns Assessment Noted Time PHQ-9 Depression Total Score: 0 10/09/20 22 2:25 PM EST documented as of this encounter Care Teams Insights Manager Relationship Specialty Start Date End Date Catherine Duran FNP 230 [place] [address] PCP - General Family Medicine 06/18/22 11/11/24 Name, MD Garret 230 [place] [address] PCP - General Internal Medicine 11/12/24 documented as of this encounter
--- OUTSIDE RECORDS SUMMARY | 2025-02-16 07:04 | XMS_ITS | Encounter Summary ---
Author Organization [employer] Address [address] [facility] 7t [place] [address] Care Team Providers Care Farm Crew Member Name Role Phone Catherine Duran Primary Care Provider [phone] Name, Garret VALENCIA Primary Care Provider [phone] Reason for Visit * Reason Comments Med Refill Encounter Details Date Type Department Care Team ([facility] st Contact Info) Description 05/13/2024 Refill [facility] MED & PEDS 505 [place], [place] [phone] Catherine Duran FNP 505 [place], [place] [phone] Type 2 diabetes mellitus without complication, without long-term current use of insulin ([facility]) Social History Tobacco Use Types Packs/Day Years [...] What is your housing situation today? I am not s ure 04/21/[address] you li ve. Do you have problems with any of the following? I am not sure 04/21/2024 Food Insecurity Answer Date Recorded Within the [...] from getting things needed for daily living? I am not sure 04/21/2024 Utilities Answer Date Recorded In the past 12 months, has t he electric, gas, oil or water company threatened to shut off services in your home? No 04/21/2024 Depression Answer Date Recorded Patient Health Questionnaire-2 Score 2 04/21/2024 Sex and Gender Information Value Date Recorded Sex Assigned at Male 08/19/2022 10:19 AM EDT Legal Sex Male 10:19 AM EDT Gender Identity Male 08/19/2022 10:19 AM EDT Sexual Orientation Straight 08/19/2022 10 :19 AM EDT documented as of this encounter Plan of Treatment Upcoming Encounters Date Type Department Care Team (Late st Contact Info) Description 05/27/2025 9:00 AM EDT Office Visit [facility] MEDICINE 230 [place] [address] Garret Patrick MD [address] [place] [address] documented as of this encounter Visit Diagnoses Diagnosis Type 2 diabetes mellitus without complication, without long-term current use of insulin ([facility]) documented in this encounter Additional Health Concerns Assessment Noted Time PHQ-9 Depression Total Score: 5 04/21/20 24 9:11 AM EDT documented as of this encounter Care Teams Farm Crew Member Relationship Specialty Start Date End Date Catherine Duran FNP [address] [place] [address] PCP - General Family Medicine 06/18/22 11/11/24 Garret Patrick MD [address] [place] [address] PCP - General Internal Medicine 11/12/24 documented as of this encounter
--- OUTSIDE RECORDS SUMMARY | 2025-02-16 07:05 | XMS_ITS | Encounter Summary ---
Author Organization [employer] Address [address] [facility] 7t [place] [address] Care Team Providers Care Spa Supervisor Name Role Phone Name, Garret VALENCIA Primary Care Provider [phone] Reason for Visit * Reason Comments Med Refill Encounter Details Date Type Department Care Team ([facility] st Contact Info) Description 02/11/2025 Refill [facility] MEDICINE 230 [place] [address] Name, MD Garret 230 [place] [address] Tinea Social History Tobacco Use Types Packs/Day Years Used Date Smoking Tobacco: Never Smokeless Tobacco: Never Alcohol Use Standard Drinks/Week Comments Never 0 (1 standard drink = 0.6 oz pur e alcohol) Depression Answer Date Recorded Patient Health Questionnaire-9 Score 4 02/08/2025 Patient Health Questionnaire-9 Score 4 02/08/2025 Last PHQ-9: Questionnaire Data Not on file 0 02/08/2025 Housing Stability Answer Date Recorded What is your housing situation today? I do not have housing (Staying with others, in a hotel, in a retirement, living outside on the street, on a beach, in a car, or in a park 01/31/[address] you li ve. Do you have problems with any of the following? None of the above 01/31/2025 Food Insecurity Answer Date Recorded Within the past 12 months, y ou worried that your food would run out before you got money to buy more: Sometimes True 2024 Within the past 12 months,th e food you bought just didn't last and you didn't have enough money to get more: Sometimes True 01/31/2025 Transportation Answer Date Recorded In the past [...] Date Recorded Patient Health Questionnaire-2 Score 1 02/08/2025 Internet Access Answer Date Recorded Internet Access Q1 Yes 01/31/2025 Internet Access Q2 Not on file 01/31/2025 Sex and Gender Information Value Date Recorded Sex Assigned at Male 08/19/2022 10:19 AM EDT Legal Sex Male 10:19 AM EDT Gender Identity Male 08/19/2022 10:19 AM EDT Sexual Orientation Straight 08/19/2022 10 :19 AM EDT documented as of this encounter Plan of Treatment Upcoming Encounters Date Type Department Care Team (Late st Contact Info) Description 05/27/2025 9:00 AM EDT Office Visit [facility] MEDICINE [address] [place] [address] NameGarret MD 230 [place] [address] documented as of this encounter Visit Diagnoses Diagnosis Tinea Dermatophytosis of unspecified site documented in this encounter Additional Health Concerns Assessment Noted Time PHQ-9 Depression Total Score: 4 02/09/20 25 10:13 AM EDT documented as of this encounter Care Teams Spa Supervisor Relationship Specialty Start Date End Date NameGarret MD [address] [place] [address] PCP - General Internal Medicine 11/12/24 documented as of this encounter
--- OUTSIDE RECORDS SUMMARY | 2025-02-16 07:05 | XMS_ITS | Encounter Summary ---
Author Organization [employer] Address [address] [facility] 7t [place] [address] Care Team Providers Care Deck Specialist Name Role Phone Catherine Duran Primary Care Provider [phone] Name, Garret VALENCIA Primary Care Provider Reason for Visit * Reason Comments Med Change Request Encounter Details Date Type Department Care Team ([facility] st Contact Info) Description 01/04/2024 Refill [facility] MEDICINE 230 [place] [address] Catherine Duran FNP [address] [place], [place] [phone] Social History Tobacco Use Types Packs/Day Years Used Date Smoking Tobacco: Never Smokeless Tobacco: Never Alcohol Use Standard Drinks/Week Comments Never 0 (1 standard drink = 0.6 oz pur e alcohol) Depression Answer Date Recorded Patient Health Questionnaire-9 Score 5 03/10/2023 Housing Stability Answer Date Recorded What is your housing situation today? I have housing today, but I am worried about losing housing in the future 08/04/[address] you li ve. Do you have problems with any of the following? None of the above 08/04/2023 Food Insecurity Answer Date Recorded Within the past 12 months, y ou worried that your food would run out before you got money to buy more: Sometimes True 2022 Within the past 12 months,th e food you bought just didn't last and you didn't have enough money to get more: Sometimes True 08/04/2023 Transportation Answer Date Recorded In the past 12 months, has l ack of transportation kept you from medical appts, meetings, work or from getting things needed for daily living? No 08/04/2023 Utilities Answer Date Recorded In the past 12 months, has t he electric, gas, oil or water company threatened to shut off services in your home? No 08/04/2023 Depression Answer Date Recorded Patient Health Questionnaire-2 [...] 05/27/2025 9:00 AM EDT Office Visit [facility] MEDICINE [address] [place] [address] NameGarret MD [address] [place] [address] documented as of this encounter Visit Diagnoses Not on filedocumented in this encounter Additional Health Concerns Assessment Noted Time PHQ-9 Depression Total Score: 5 03/10/20 23 9:36 AM EDT documented as of this encounter Care Teams Deck Specialist Relationship Specialty Start Date End Date Catherine Duran FNP [address] [place] [address] PCP - General Family Medicine 06/18/22 11/11/24 Garret Patrick MD [address] [place] [address] PCP - General Internal Medicine 11/12/24 documented as of this encounter
--- OUTSIDE RECORDS SUMMARY | 2025-02-16 07:05 | XMS_ITS | Encounter Summary ---
Author Organization [employer] Address [address] [place] [address] [place] [address] Care Team Providers Care Snag Grinder Name Role Phone Catherine Duran Primary Care Provider [phone] Garret Patrick MD Primary Care Provider [phone] Reason for Visit * Reason Comments Med Refill Encounter Details Date Type Department Care Team (Late st Contact Info) Description 04/16/2023 Refill [facility] MED & PEDS 505 [place] [address] Tram Noble FNP [address] [place] [address] Dept [place] [address] Gout, unspecified cause, unspecified chronicity, unspecified site [...] Description 05/27/2025 9:00 AM EDT Office Visit [facility] MEDICINE [address] [place] [address] Name, MD Garret [address] [place] [address] documented as of this encounter Visit Diagnoses Diagnosis Gout, unspecified cause, unspecified chronicity, unspecified site documented in this encounter Additional Health Concerns Assessment Noted Time PHQ-9 Depression Total Score: 5 03/10/20 23 9:36 AM EDT documented as of this encounter Care Teams Snag Grinder Relationship Specialty Start Date End Date Catherine Duran FNP [address] [place] [address] PCP - General Family Medicine 06/18/22 11/11/24 Name, MD Garret [address] [place] [address] PCP - General Internal Medicine 11/12/24 documented as of this encounter
--- OUTSIDE RECORDS SUMMARY | 2025-02-16 07:05 | XMS_ITS | Encounter Summary ---
Author Organization [employer] Address [address] [facility] 7t [place] [address] Care Team Providers Care Group Activities Aide Name Role Phone Catherine Duran Primary Care Provider [phone] Name, Garret VALENCIA Primary Care Provider [phone] Encounter Details Date Type Department Care Team (Late st Contact Info) Description 09/05/2023 Abstract [facility] MEDICINE 230 [place] [address] Pamela Molina Social History Tobacco Use Types Packs/Day Years [...] Description 05/27/2025 9:00 AM EDT Office Visit [facility] MEDICINE 230 [place] [address] NameGarret MD 230 [place] [address] documented as of this encounter Visit Diagnoses Not on filedocumented in this encounter Additional Health Concerns Assessment Noted Time PHQ-9 Depression Total Score: 5 03/10/20 23 9:36 AM EDT documented as of this encounter Care Teams Group Activities Aide Relationship Specialty Start Date End Date Catherine Duran FNP 230 [place] [address] PCP - General Family Medicine 06/18/22 11/11/24 Garret Patrick MD [address] [place] [address] PCP - General Internal Medicine 11/12/24 documented as of this encounter
--- OUTSIDE RECORDS SUMMARY | 2025-02-16 07:05 | XMS_ITS | Encounter Summary ---
Author Organization [employer] [facility] Address [address] [place] [address] Care Team Providers Care Double Needle Operator Lockstitch Name Role Phone Catherine Duran Primary Care Provider [phone] Garret Patrick MD Primary Care Provider [phone] Reason for Visit * Reason Comments Med Refill Encounter Details Date Type Department Care Team (Late Contact Info) Description 06/15/2023 Refill [facility] [address] [place], [place] [phone] Catherine Duran FNP [address] [place], [place] [phone] Tinea; Chronic bilateral back pain, unspecified back location Social History Tobacco Use Types Packs/Day Years [...] Description 05/27/2025 9:00 AM EDT Office Visit [facility] [address] [place] [address] [phone] Name, MD Garret [address] [place] [address] documented as of this encounter Visit Diagnoses Diagnosis Tinea Dermatophytosis of unspecified site Chronic bilateral back pain, unspecified back location documented in this encounter Additional Health Concerns Assessment Noted Time PHQ-9 Depression Total Score: 5 03/10/20 23 9:36 AM EDT documented as of this encounter Care Teams Double Needle Operator Lockstitch Relationship Specialty Start Date End Date Catherine Duran FNP [address] [place] [phone] PCP - General Family Medicine 06/18/22 11/11/24 Name, MD Garret [address] [place] [id number] PCP - General Internal Medicine 11/12/24 documented as of this encounter
--- OUTSIDE RECORDS SUMMARY | 2025-02-16 07:05 | XMS_ITS | Encounter Summary ---
Author Organization [employer] [facility] Address [address] [facility] [address] [facility] [address] [place] [address] Care Team Providers Care Test Administrator Name Role Phone Catherine Duran Primary Care Provider [phone] Garret Patrick MD Primary Care Provider [phone] Reason for Visit * Reason Comments Med Refill Encounter Details Date Type Department Care Team (Late Contact Info) Description 04/16/2023 Refill [facility] [address] [place], [place] [phone] Catherine Duran FNP [address] [place] [address] [phone] Pure hyperglyceridemia; Tinea Social History Tobacco Use Types Packs/Day [...] 9:00 AM EDT Office Visit [facility] [address] [place], [place] [phone] Name, MD Garret [address] [place] [phone] documented as of this encounter Visit Diagnoses Diagnosis Pure hyperglyceridemia Tinea Dermatophytosis of unspecified site documented in this encounter Additional Health Concerns Assessment Noted Time PHQ-9 Depression Total Score: 5 03/10/20 23 9:36 AM EDT documented as of this encounter Care Teams Test Administrator Relationship Specialty Start Date End Date Catherine Duran FNP [address] [place] [address] PCP - General Family Medicine 06/18/22 11/11/24 Name, MD Garret [address] [place] [address] PCP - General Internal Medicine 11/12/24 documented as of this encounter
--- OUTSIDE RECORDS SUMMARY | 2025-02-16 07:05 | XMS_ITS | Encounter Summary ---
Author Organization [employer] Address [address] [facility] [address] [place] [address] Care Team Providers Care Silviculture Professor Name Role Phone Name, Garret VALENCIA Primary Care Provider [phone] Reason for Visit * Reason Comments Med Refill Encounter Details Date Type Department Care Team ([facility] Contact Info) Description 02/11/2025 Refill [facility] [address] [place], [place] [phone] Catherine Duran FNP [address] [place] [address] Type 2 diabetes mellitus without complication, without long-term current use of insulin (CMS/HCC); Pain; Tinea Social History Tobacco Use Types Packs/Day [...] with others, in a hotel, in a longterm, living outside on the street, on a [...] Description 05/27/2025 9:00 AM EDT Office Visit [facility] [address] [place] [phone] NameGarret MD [address] [place] [phone] documented as of this encounter Visit Diagnoses Diagnosis Type 2 diabetes mellitus without complication, without long-term current use of insulin ([facility]) Pain Generalized pain Tinea Dermatophytosis of unspecified site documented in this encounter Additional Health Concerns Assessment Noted Time PHQ-9 Depression Total Score: 4 02/09/20 25 10:13 AM EDT documented as of this encounter Care Teams Silviculture Professor Relationship Specialty Start Date End Date Name, MD Garret [address] [place] [phone] PCP - General Internal Medicine 11/12/24 documented as of this encounter
--- OUTSIDE RECORDS SUMMARY | 2025-02-16 07:05 | XMS_ITS | Clinical Summary ---
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 Name Role Phone Name, Garret VALENCIA Primary Care Provider [phone] Allergies Active Allergy Reactions Criticality Noted Date Comments Gemfibrozil Unknown Verapamil Unknown Medications albuterol (2.5 MG/3ML) 0.083% nebulizer solution INHALE 1 VIAL VIA NEBULIZER EVERY 4-6 HOURS NEEDED FOR DIFFICULTY BREATHING, UP TO 4 TIMES/DAY Active citalopram (CeleXA) 40 MG tablet take 1 tablet (40MG) by oral route every day Active famotidine (Pepcid) 40 MG tablet TOME LYNDSAY TABLETA POR V A ORAL AL ACOSTARSE Active FreeStyle lancets USE 1 LANCET BY TO SKIN ROUTE EVERY DAY Active loratadine (Claritin) 10 MG tablet Take 1 tablet by mouth at bed time. Active montelukast (Singulair) 10 MG tablet take 1 tablet (10MG) by oral route every day in the evening Active omeprazole (PriLOSEC) [address] capsule Take 1 capsule by mouth before breakfast. Active Senna-Time 8.6 MG tablet TOME LYNDSAY TABLETA TODOS LOS D AL ACOSTARSE FOR CONSTIPATION Active tadalafil (Cialis) 20 MG tablet TAKE 1 TABLET BY MOUTH ONCE PER DAY NEEDED. ON DEMAND MEDICATION, TAKE 60 MINUTES BEFORE INTENDED ACTIVITY 022 Active fluticasone (Flonase) 50 MCG/ACT nasal sprayIndication s:Moderate persistent asthma without complication spray 2 spray by intranasal route every day in each nostril 48 g 3 023 Active triamcinolone (Kenalog) 0.1 % creamIndication s:Routine health maintenance APPLY A THIN LAYER TOPICALLY TWICE DAILY FOR UP TO 2 WEEKS 30 g 023 Active Blood Pressure Monitor kitIndications: Primary hypertension Use to check BP daily and when symptomatic 1 kit 023 Active Blood Glucose Monitoring Suppl (FreeStyle Lite) w/Device kitIndications: Type 2 diabetes mellitus without complication, without long-term current use of insulin ([facility]) 1 kit Once daily. Use to check blood glucose as directed 1 kit 1 023 Active acetaminophen-c odeine (Tylenol w/ Codeine #3) 300-30 MG tabletIndicatio ns:Chronic bilateral back pain, unspecified back location Take 1 tablet by mouth if needed each day for severe pain. 30 tablet 024 Active allopurinol (Zyloprim) 100 MG tabletIndicatio ns:Chronic gout without tophus, unspecified cause, unspecified site TOME LYNDSAY TABLETA DOS VECES AL PHILOMENA 180 tablet 3 024 Active fenofibrate micronized (Lofibra) 134 MG capsule TOME LYNDSAY CAPSULA TODOS LOS NORMAN CON ALIMENTO 90 capsule 3 024 Active albuterol (Ventolin HFA) 108 (90 Base) MCG/ACT inhalerIndicati ons:Moderate persistent asthma without complication INHALE 2 PUFFS BY MOUTH EVERY 4 HOURS IF NEEDED 18 g 11 024 Active Diclofenac Sodium 1 % gelIndications: Chronic bilateral back pain, unspecified back location APPLY 2 GRAMS BY TOPICAL ROUTE 4 TIMES EVERY DAY TO THE AFFECTED AREA(S) NEEDED 100 g 11 024 Active FREESTYLE LITE test stripIndication s:Elevated blood sugar USE 1 EACH BY OTHER ROUTE IN THE MORNING. 100 strip 11 024 Active ramelteon (Rozerem) 8 MG tabletIndicatio ns:Sleep difficulties TAKE 1 TABLET BY MOUTH AT BEDTIME 30 MINUTES BEFORE BED 30 tablet 2 025 Active ibuprofen 600 MG tabletIndicatio ns:Chronic bilateral back pain, unspecified back location TAKE 1 TABLET (600 MG) BY MOUTH EVERY 8 HOURS IF NEEDED FOR MODERATE PAIN OR FEVER. 60 tablet 3 025 Active ergocalciferol (Vitamin D2) 1.25 MG (71152 UT) capsuleIndicati ons:Vitamin D deficiency TAKE 1 CAPSULE (1.25 MG) BY MOUTH 1 (ONE) TIME PER WEEK. USE FOR 3 MONTHS, THEN REPEAT LAB WORK. 12 capsule 025 Active losartan (Cozaar) 25 MG tabletIndicatio ns:Primary hypertension TOME LYNDSAY TABLETA TODOS LOS NORMAN 90 tablet 3 025 Active Cyanocobalamin (B-12) 1000 MCG capsuleIndicati ons:Encounter for general adult medical examination without abnormal findings TAKE 1 CAPSULE BY MOUTH EVERY DAY 90 capsule 2 025 Active cyclobenzaprine (Flexeril) 10 MG tabletIndicatio ns:Muscle spasm TOME 0.5 OR 1 TABLETA POR VIA ORAL HAILEY VECES AL PHILOMENA CUANDO SEA NECESARIO 30 tablet 1 025 Active metFORMIN (Glucophage) 500 MG tabletIndicatio ns:Type 2 diabetes mellitus without complication, without long-term current use of insulin ([facility]) TAKE 1 TABLET BY MOUTH 4 TIMES PER WEEK 90 tablet 3 025 Active lidocaine (Lidoderm) 5 % patchIndication s:Pain PLACE 1 PATCH TO SKIN ONCE DAILY AND WEAR UP TO 12 HOURS 30 patch 11 025 Active Arnuity Ellipta 100 MCG/ACT inhaler INHALE 1 PUFF INTO LUNGS EVERY MORNING. RINSE MOUTH WITH WATER AFTER USE THEN SPIT 30 each 025 Active clotrimazole (Lotrimin) 1 % creamIndication s:Tinea APPLY TOPICALLY EVERY 12 HOURS FOR 28 DAYS 30 g 025 Active fluticasone furoate (Arnuity Ellipta) 100 MCG/ACT inhaler Inhale 1 puff in the morning. Rinse mouth with water after use to reduce aftertaste and incidence of candidiasis. Do not swallow. 1 each 024 2024 Discontinued lidocaine (Lidoderm) 5 % patchIndication s:Pain PLACE 1 PATCH TO SKIN ONCE DAILY AND WEAR UP TO 12 HOURS 30 patch 11 024 2024 Discontinued metFORMIN (Glucophage) 500 MG tabletIndicatio ns:Type 2 diabetes mellitus without complication, without long-term current use of insulin (CMS/HCC) Take 1 tablet by mouth once daily four times per week 90 tablet 3 024 2024 Discontinued cyclobenzaprine (Flexeril) 10 MG tabletIndicatio ns:Muscle spasm TOME 0.5 OR 1 TABLETA POR VIA ORAL HAILEY VECES AL PHILOMENA CUANDO SEA NECESARIO 30 tablet 1 025 2024 Discontinued clotrimazole (Lotrimin) 1 % creamIndication s:Tinea APPLY TOPICALLY EVERY 12 HOURS FOR 28 DAYS 30 g 025 2024 Discontinued(R eorder (will not trigger notification to Pharmacy)) Active Problems Problem Noted Date Diagnosed Date Elevated ferritin 09/01/2024 Overview (09/09/2024): Lab Results Component Value Date FERRITIN 426 (H) 08/20/2024 Lab Results Component Value Date FE 119 08/20/2024 TIBC 355 08/20/2024 PERFESAT 34 08/20/2024 UNSATFEBIND 236 08/20/2024 DDX: Hemochromatosis vs secondary to diabetes vs inflammatory vs metabolic syndrome vs alcohol use vs liver dx vs other - Pt denies excess alcohol use, last alcoholic beverage > 10 years ago - Hx of hypogonadism Assessment & Plan (09/09/2024 1:13 PM EST): Plan: repeat labs, check Abd US Vitamin D deficiency 09/01/2024 Assessment & Plan (09/01/2024 10:14 AM EST): Lab Results Component Value Date [id number] 10.2 (L) 08/20/2024 - Vit D 50,000 units weekly x 12 weeks (initiated 09/01/24) Sleep difficulties 07/21/2024 Overview (09/01/2024): Cont ramelteon 8mg at bedtime. Reviewed med use and SE Continue with sleep hygiene interventions such as: Encouraged pt to use bed exclusively for sleep. Set bed time and try to stay consistent each night with hour going to sleep and waking in morning. Avoid screens or electronics ideally for 2 hours before bed. If having trouble falling asleep, get up and journal or read before trying to re-initiate sleep. Assessment & Plan (09/01/2024 10:12 AM EST): Well controlled with current regimen Assessment & Plan (07/21/2024 9:46 AM EDT): Discussed goal with pharmacotherapy to have therapeutic response with the lowest potential SE. In agreement to start with trial of ramelteon, will follow up in 1 month. Chronic bilateral back pain 02/28/2024 Assessment & Plan (07/21/2024 9:36 AM EDT): No red flag symptoms Continues with symptomatic management including tizanidine 2-4mg Q8H PRN, and acetaminophen-codeine 300-30mg once daily PRN Offered referrals such as physical therapy, pt declines at this time Consider XR if not relieved with symptomatic management Assessment & Plan (02/28/2024 1:59 PM EDT): No red flag symptoms Continues with symptomatic management including tizanidine 2-4mg Q8H PRN, and acetaminophen-codeine 300-30mg once daily PRN Offered referrals such as physical therapy, pt declines at this time Consider XR if not relieved with symptomatic management Chronic gastroesophageal reflux disease 06/17/20 23 Overview (06/17/2023): ?? Followed by [facility] ?? Continues with omeprazole 40mg in the morning and famotidine 40mg nightly Reviewed lifestyle interventions to decrease symptoms including avoid triggering foods (such as coffee, chocolate, fatty foods), tobacco cessation, eating 2-3 hours before lying down, and weight loss. Thrombocytopenia 10/09/2022 Type 2 diabetes mellitus wit hout complication, without long-term current use of insulin 10/09/2022 Overview (04/22/2024): Lab Results Component Value Date HGBA1C 5.9 04/21/2024 Medications: -Metformin 500mg 3x/week -A1c: well controlled -Microalbumin: WNL 12/2021, pending -Lipids: WNL 12/2021, pending -Eye Exam: PEPITO Aug 2023 -PNA: PCV20 administered May 2023, UTD -Monofilament exam: WNL 04/21/24 -ACEi/ARB: yes -Statin: no, on fenofibrate Assessment & Plan (04/22/2024 3:17 PM EDT): Discussed de-prescribing metformin further, although pt interested in staying with current dosing of 2-3 times per week. Encouraged trial of lower carb options for breakfast. Assessment & Plan (06/17/2023 11:36 AM EDT): Lab Results Component Value Date HGBA1C 5.4 06/12/2023 -Home FBG within target, 80s-100s -Continues with metformin 500mg daily and repaglinide 0.5-1mg BID AC PRN meals with higher carbohydrate content (usually once daily with dinner) -A1c: well controlled -Microalbumin: WNL 12/2021, due -Lipids: WNL 12/2021, due -Eye Exam: PEPITO Jul 2022 -PNA: PCV20 administered May 2023, UTD -Monofilament exam: WNL 03/28/22, due -ACEi/ARB: yes -Statin: no, on fenofibrate BG monitor sent to [facility] Assessment & Plan (03/17/2023 4:48 PM EDT): Lab Results Component Value Date HGBA1C 5.7 10/09/2022 -Home FBG within target, 80s-100s -Continues with metformin 500mg daily and repaglinide 0.5-1mg BID AC PRN meals with higher carbohydrate content (usually once daily with dinner) -A1c 5.7% on 10/09/22 -Microalbumin: WNL 12/2021 -Lipids: WNL 12/2021 -Eye Exam: PEPITO Jul 2022 -PNA: 08/2007 & 12/2012 -Monofilament exam: WNL 03/28/22 -ACEi/ARB: yes -Statin: no, on fenofibrate Assessment & Plan (10/09/2022 6:31 PM EST): -Home FBG within target, 100-110 -Continues with metformin 500mg daily and repaglinide 0.5-1mg BID AC PRN meals with higher carbohydrate content (usually once daily with dinner) -A1c 5.7% on 10/09/22 -Microalbumin: WNL 12/2021 -Lipids: WNL 12/2021 -Eye Exam: PEPITO Jul 2022 -PNA: 08/2007 & 12/2012 -Monofilament exam: WN 03/28/22 -ACEi/ARB: yes -Statin: no, on fenofibrate Routine health maintenance 10/09/2022 Overview (04/22/2024): Routine Health Maintenance Optometry: [facility]O 08/20/23 at [facility]. No diabetic retinopathy or macular edema present bilat. Dental: referral to [facility] Dental placed January 2024 Routine Cancer Screening Colonoscopy: 01/22/21 w/ Dr. Kirkland, plan to follow up in January 2026 PSA: Ordered 04/21/24 Assessment & Plan (04/22/2024 3:18 PM EDT): Due for DM labs, interested in completing all routine labs at same time including asymptomatic STI screening Assessment & Plan (06/17/2023 11:38 AM EDT): COVID bivalent administered today Assessment & Plan (03/17/2023 4:53 PM EDT): Routine Health Maintenance Optometry: PEPITO 08/02/22 at [facility]. No diabetic retinopathy or macular edema present bilat. Dental: discuss at follow up COVID vaccination status: primary series complete, boosted x 1. Eligible for bivalent booster. Outstanding IZ: flu Routine Cancer Screening Colon CA: 01/22/21 w/ Dr. Kirkland, plan to follow up in January 2026 Moderate persistent asthma without complication 10/09/2022 Assessment & Plan (02/09/2024 9:28 AM EDT): -Maintenance: Arnuity Ellipta 100mcg/act - 1 puff daily -Rescue: albuterol PRN -Reviewed rule of 2's for assessing control -DME request for neb machine on 06/12/23. Approved/delivered Oct 2023 from [facility] Assessment & Plan (10/30/2023 9:05 AM EST): -Continue with Flovent 110mcg BID and albuterol PRN -Reviewed rule of 2's for assessing control -DME request for neb machine on 06/12/23. Pt has not yet received, will follow up w/ DME specialist as appears had been faxed to [facility] Assessment & Plan (06/12/2023 9:56 AM EDT): -Continue with Flovent 110mcg BID and albuterol PRN -Reviewed rule of 2's for assessing control -DME request for neb machine on 06/12/23 Assessment & Plan (03/17/2023 4:49 PM EDT): -Continue with Flovent 110mcg BID and albuterol PRN -Reviewed rule of 2's for assessing control Assessment & Plan (10/09/2022 6:32 PM EST): -Continue with Flovent 110mcg BID and albuterol PRN -Reviewed rule of 2's for assessing control -Update ACT at next appt as long as no recent URI Mixed anxiety and depressive disorder 10/04/2015 Obesity 10/04/2015 Tubular adenoma of colon 10/04/2015 Assessment & Plan (03/17/2023 4:52 PM EDT): -Colonoscopy 02/01/[address] Kirkland: Colon, transverse, polypectomy: colonic mucosa with mild surface hyperplastic changes. Colon, descending, polypectomy: Tubular adenoma, no high grade dysplasia or carcinoma seen Colon, sigmoid, polypectomy: colonic mucosa with mild surface hyperplastic changes Plan to repeat in 5 years (approx January 2026) Low vitamin B12 level 03/09/2015 Assessment & Plan (07/21/2024 9:47 AM EDT): -Decreased to Vit B12 every other day in April 2024 -Repeat lab today Assessment & Plan (10/30/2023 9:05 AM EST): -Due for repeat Vit B12 Mild cognitive disorder 03/09/2015 Male hypogonadism 02/21/2015 Hypertriglyceridemia 10/25/2014 Allergic rhinitis 12/22/2012 Obstructive sleep apnea syndrome 12/22/2012 Gout 08/13/2012 Hypertension 08/13/2012 Assessment & Plan (06/17/2023 11:42 AM EDT): -Continue to monitor BP values at home -Continue on losartan 25mg daily -Encourage low salt diet and daily exercise Blood pressure monitor sent to pharmacy Assessment & Plan (03/17/2023 4:49 PM EDT): -Continue to monitor BP values at home -Continue on losartan 25mg daily -Encourage low salt diet and daily exercise Assessment & Plan (10/09/2022 6:32 PM EST): -Continue to monitor BP values at home -Continue on losartan 25mg daily -Encourage low salt diet and daily exercise Migraine 08/13/2012 Resolved Problems Problem Noted Date Diagnosed Date Resolved Date Asthma 08/13/2012 10/09/2022 Encounters Date Type Department Care Team Description 02/11/2025 Refill [facility] MEDICINE [address] [place] [address] NameGarret MD Tinea 02/11/2025 Refill [facility] MED & PEDS [address] [place] [address] Catherine Duran, [employer] PROP[employer]ETOR Type 2 diabetes mellitus without complication, without long-term current use of insulin (CMS/HCC); Pain; Tinea 02/08/2025 10:15 AM EDT Office Visit [facility] MEDICINE [address] [place] [address] NameGarret MD Type 2 diabetes mellitus without complication, without long-term current use of insulin (CMS/HCC) (Primary Dx); Elevated ferritin; Chronic bilateral low back pain without sciatica 02/08/2025 Travel 02/02/2025 Telephone [facility] MEDICINE [address] [place] [phone] Yogi Salcedo MA chart prep 01/31/2025 Patient Outreach [facility] MEDICINE [address] [place] [phone] Garret Patrick MD Care Coordination (CHW outreach for SDOH housing search-referral completed ) 01/31/2025 Patient Outreach [facility] MED & PEDS [address] [place] [address] Garret Patrick MD Pre-visit Planning (SDOH positive. Tobacco screening negative. ) 01/23/2025 Refill [facility] MED & PEDS [address] [place] [address] Garret Patrick MD Muscle spasm 01/17/2025 Outside Procedure [facility] OPTOMETRY [address] [place] [phone] Kassi Ibarra, OD Presbyopia (Primary Dx) 2025 Refill [facility] MEDICINE [address] [place] [phone] Catherine Duran FNP Encounter for general adult medical examination without abnormal findings 01/13/2025 1:00 PM EDT Office Visit [facility] OPTOMETRY [address] [place] [id number] Kassi Ibarra, OD Myopia of right eye (Primary Dx) 01/13/2025 Travel 01/06/2025 Refill [facility] MEDICINE [address] [place] [phone] Catherine Duran FNP Tinea 12/28/2024 Refill [facility] MEDICINE [address] [place] [phone] Catherine Duran FNP Sleep difficulties 12/26/2024 Refill [facility] MEDICINE [address] [place] [phone] Catherine Duran FNP Primary hypertension 12/21/2024 Refill [facility] MED & PEDS [address] [place] [address] Catherine Duran FNP Muscle spasm 12/13/2024 9:00 AM EST Office Visit [facility] OPTOMETRY [address] [place] [address] Fred, Kassi, OD Type 2 diabetes mellitus without ophthalmic manifestations ([facility]/HCC) (Primary Dx); Refractive amblyopia, right; Combined forms of age-related cataract of both eyes; Nevus of forehead; Presbyopia 12/13/2024 Travel 12/09/2024 Telephone [facility] MED & PEDS [address] [place], [place] [phone] Anika Seals RN Results 12/08/2024 Refill [facility] MEDICINE [address] [place] [address] Catherine Duran FNP Tinea 12/05/2024 Refill [facility] MEDICINE [address], [place] [phone] Catherine Duran FNP Vitamin D deficiency from Last 3 Months Immunizations Name Administration Dates Next Due Hep B, adult 11/15/2024,06/14/2024,05/11/2024 Influenza High-dose Quadriva lent Preservative Free 08/20/2023 Influenza injectable quadriv alent IIV4 with preservative 07/04/2015 Influenza injectable quadriv alent preservative free 12/27/2019 Influenza, High Dose Seasona l, Preservative Free 07/21/2024 Influenza, IIV3, injectable 10/04/2014,0 06/26/2011,08/01/2009,07/02 Influenza, Split (incl. murphy fied surface antigen) 08/11/2013,08/13/2012 Pfizer Covid-19 Vaccine 12+ 11/15/2024 Pfizer Covid-19 Vaccine 12+ Bivalent 06/12/2023 Pneumococcal Conjugate PCV 20 06/12/2023 Pneumococcal Polysaccharide PPSV23 12/22/2012, TD (adult), 2 Lf tetanus tox oid, preservative free, adsorbed 07/02/2007 Td (adult), 5 Lf tetanus tox oid, preservative free, adsorbed 03/07/2016 Tdap 05/27/2012 Zoster, Recombinant 08/09/2021,06/05/2021 Family History Medical History Relation Name Comments Lung cancer Maternal Grandfather Diabetes Maternal Grandmother Glaucoma Maternal Grandmother Lung cancer Maternal Grandmother Diabetes Mother Relation Name Status Comments Maternal Grandfather Maternal Grandmother Mother Social History Tobacco Use Types Packs/Day Years Used Date Smoking Tobacco: Never Smokeless Tobacco: Never Tobacco Cessation:Counseling Given: Not Answered Alcohol Use Standard Drinks/Week Comments Never 0 [...] with others, in a hotel, in a senior care, living outside on the street, on a [...] Orientation Straight 08/19/2022 10 :19 AM EDT Last Filed Vital Signs Vital Sign Reading Time Taken Comments Blood Pressure 121/77 02/08/2025 10:05 AM EDT Pulse 88 02/08/2025 10:05 AM EDT Temperature 36.9 ??C (98.4 ??F) 02/08/2025 1 0:05 AM EDT Respiratory Rate 22 02/08/2025 10:0 5 AM EDT Oxygen Saturation 97% 09/01/2024 9:21 AM EST Inhaled Oxygen Concentration - - Weight 84.3 kg (185 lb 12.8 oz) 025 10:05 AM EDT Height 170.2 cm (5' 7 ) 02/08/2025 10:0 5 AM EDT Body Mass Index 29.1 02/08/2025 10:05 AM EDT Plan of Treatment Upcoming Encounters Date Type Department Care Team (Late st Contact Info) Description 05/27/2025 9:00 AM EDT Office Visit [facility] MEDICINE [address], [place] [phone] Name, MD Garret [address] [place] [address] Health Maintenance Due Date Last Done Comments CT Colonography 1957 FIT DNA/Cologuard 1957 FIT 1957 FOBT 1957 Sigmoidoscopy 1957 RSV Patients and Patients Aged 60 years or older (1 - Risk 60-74 years 1-dose series) 2017 Diabetes: Foot Exam 04/21/2025 04/21/2024, 04/21/2024, 04/21/2024, Additional history exists Diabetes: Urine Protein Screening 04/27/2025 04/27/2024, 01/07/2022, 10/24/2020 Lipid Panel 04/27/2025 04/27/2024, 12/19, 10/24/2020 Diabetes: Hemoglobin A1C 08/10/2025 025, 07/21/2024, 04/21/2024, Additional history exists SDOH Screening 01/31/2026 01/31/2025 Colonoscopy 02/01/2026 02/01/2021 Colorectal Cancer Screening 02/01/2026 Alcohol/Substance Use Screening 02/08/2026 02/08/2025 Depression Screening 02/08/2026 02/08/2025, 02/09/20 25 Tobacco Screening 02/08/2026 02/08/2025 DTaP/Tdap/Td Vaccines (3 - Td or Tdap) 03/07/2026 03/07/2016, 05/27/2012, 07/02/2007 Eye Exam 12/13/2026 12/13/2024, 11/21, 12/13/2024, Additional history exists Zoster Vaccines Completed 08/09/2021, 06/05/2021 Pneumococcal Vaccine: 50+ Years Completed 06/12/2023, 12/22/2012, 09/17/2007 Hepatitis C Screening Completed 04/27/2024, 022 Influenza Vaccine Completed 07/21/2024, , 12/27/2019, Additional history exists COVID-19 Vaccine Completed 11/15/2024, , 09/30/2021, Additional history exists Hepatitis B Vaccines Completed 11/15/2024, 06/14/2024, 05/11/2024 HIB Vaccines Aged Out No longer eligi ble based on patient's age to complete this topic HPV Vaccines Aged Out No longer eligi ble based on patient's age to complete this topic Hepatitis A Vaccines Aged Out No long er eligible based on patient's age to complete this topic IPV Vaccines Aged Out No longer eligi ble based on patient's age to complete this topic Meningococcal Vaccine Aged Out No gabino bhavesh eligible based on patient's age to complete this topic RSV under 20 months Aged Out No longe r eligible based on patient's age to complete this topic Rotavirus Vaccines Aged Out No longer eligible based on patient's age to complete this topic Procedures Procedure Name Priority Date/Time Associated Diagnosis Comments POCT GLYCATED HEMOGLOBIN, TOTAL Routine 02/08/2025 10:08 AM EDT Type 2 diabetes mellitus without complication, without long-term current use of insulin ([facility]) POCT GLUCOSE Routine 02/08/2025 10:07 AM EDT Type 2 diabetes mellitus without complication, without long-term current use of insulin ([facility]) ALBUMIN, RANDOM URINE W/CREATININE Routine 04/27/2024 7:45 AM EDT Type 2 diabetes mellitus without complication, without long-term current use of insulin (CMS/HCC) HEPATITIS C VIRAL RNA, QUANTITATIVE, REAL-TIME PCR Routine 04/27/2024 7:41 AM EDT Routine health maintenance LIPID PANEL, STANDARD Routine 04/27/2024 7:41 AM EDT Type 2 diabetes mellitus without complication, without long-term current use of insulin (CMS/HCC) HM COLONOSCOPY Routine 02/01/2021 from Last 3 Months or Most Recently Relevant to Health Maintenance Results * POCT HGB A1C (02/08/2025 10:08 AM EDT) Hemoglobin A1C 5.5 4.0 - 6.0 % QC Media Lot # [id number] Lot# Expiration Date 120,526 Blood 02/08/2025 10:0 8 AM EDT us Garret Patrick MD POINT OF CARE TEST ENTER/EDIT OR DERABLES Final Result * POCT Glucose (02/08/2025 10:07 AM EDT) Glucose Blood, POC 135 60 - 200 mg/dL QC Media Lot # [id number] Lot# Expiration Date 82,625 Blood Capillary blood specimen / Unknown 02/08/2025 10:07 AM EDT us Garret Patrick MD POINT OF CARE TEST ENTER/EDIT OR DERABLES Final Result * Albumin, Random Urine W/Creatinine (04/27/2024 7:45 AM EDT) Creatinine, Urine 176.20 mg/dL [facility] Microalbumin Urine 28.0 mg/L [facility] Microalbum Creatinine Ratio Ur 15.8 <30 ug/mg cr [facility] Comment:Albumin/Creatinine R atio Reference Ranges: Normal: < 30 ug/mg creatinine Microalbuminuria: 30 - 300 ug/mg creatinineClinical Albuminuria: > 300 ug/mg creatinine Urine 04/27/2024 7:45 AM EDT 04/27/2024 8:22 AM EDT Catherine Duran [facility] URINE ORDERABLES Final Res ult Performing Organization Address [facility] de Phone Number [facility] [address] [place] [phone] * Hepatitis C Viral RNA, Quantitative, Real-Time PCR (04/27/2024 7:41 AM EDT) Hepatitis C Viral Load <15 NOT DETECTED NOT DETECTED IU/mL [facility] HCV Log PCR <1.18 NOT DETECTED NOT DETECTED Log IU/mL [facility] Comment:For additional infor mation, please refer tohttp://education.5minutes/faq/WHO84k9(This link is being provided for informational/educational purposes only.)THIS TEST WAS PERFORMED AT:[facility] [place] [phone] MCKEON MD Blood 04/27/2024 7:41 AM EDT 04/27/2024 7:41 AM EDT Catherine Duran [facility] BLOOD ORDERABLES Final Res ult Performing Organization Address [facility] de Phone Number [facility] [address] [place] [phone] * Lipid Panel, Standard (04/27/2024 7:41 AM EDT) Triglycerides 78 <150 mg/dL [facility] Comment:Desirable Triglyceri de: less than 150 mg/dLBorderline High Triglyceride 150-199 mg/dLHigh Triglyceride: 200-499 mg/dLVery High Triglyceride: greater than or equal to 5OO mg/dL Cholesterol 157 <200 mg/dL [facility] Comment:Desirable Cholestero l: less than 200 mg/dLBorderline High Cholesterol: 200-239 mg/dLHigh Cholesterol: greater than 239 mg/dL LDL Cholesterol Calculated 88 <100 mg/dL [facility] Comment:Desirable LDL: less than 100 mg/dLNear Optimal/Above Optimal LDL: 110- 129 mg/dLBorderline High LDL: 130-159 mg/dLHigh LDL: 160-189 mg/dLVery High LDL: greater than or equal to 190 mg/dL HDL Cholesterol 54 >40 mg/dL [facility] Comment:Desirable HDL: great er than 40 mg/dL Note: This HDL assay may give artificially low results in patients with liver disease. Blood Venous blood specimen / Unknown 04/27/2024 7:41 AM EDT 04/27/2024 7:41 AM EDT Catherine Duran [employer] LAB BLOOD ORDERABLES Final Res ult [facility] [address] [place] [phone] * (ABNORMAL) Colonoscopy (02/01/2021) Colonoscopy Normal Normal Comment:Tubular Adenoma, Zhen n to follow up in 5 years 02/01/2021 Bebo Kirkland MD HEALTH MAINTENANCE Edited Resul t - Final from Last 3 Months or Most Recently Relevant to Health Maintenance Insurance [facility] Care Teams Venetian Blind Installer Relationship Specialty Start Date End Date Name, MD Garret [address] [place] [phone] PCP - General Internal Medicine 11/12/24
--- OUTSIDE RECORDS SUMMARY | 2025-02-16 07:05 | XMS_ITS | Encounter Summary ---
Author Organization [facility] [employer] [facility] Address [address] [facility] [address], [place] [address] Care Team Providers Care Pattern Worker Name Role Phone Catherine Duran Primary Care Provider Garret Patrick MD Primary Care Provider Reason for Visit * Reason Comments Med Refill Encounter Details Date Type Department Care Team (Late st Contact Info) Description 07/09/2023 Refill [facility] MEDICINE [address] [place], [place] [phone] Catherine Duran FNP [address] [place] [address] [phone] Routine health maintenance Social History Tobacco Use [...] 05/27/2025 9:00 AM EDT Office Visit [facility] MEDICINE [address] [place], [place] [phone] Name, MD Garret [address] [place] [address] documented as of this encounter Visit Diagnoses Diagnosis Routine health maintenance Unspecified examination documented in this encounter Additional Health Concerns Assessment Noted Time PHQ-9 Depression Total Score: 5 03/10/20 23 9:36 AM EDT documented as of this encounter Care Teams Pattern Worker Relationship Specialty Start Date End Date Catherine Duran FNP [address] [place] [address] PCP - General Family Medicine 06/18/22 11/11/24 Name, MD Garret [address] [place] [address] PCP - General Internal Medicine 11/12/24 documented as of this encounter
--- OUTSIDE RECORDS SUMMARY | 2025-02-16 07:05 | XMS_ITS | Encounter Summary ---
Author Organization [employer] [facility] Address [address] [facility] 7t [place] [address] Care Team Providers Care Service Support Representative Name Role Phone Catherine Duran Primary Care Provider [phone] Name, Garret VALENCIA Primary Care Provider [phone] Reason for Visit * Reason Comments Med Refill Encounter Details Date Type Department Care Team (Late st Contact Info) Description 03/17/2023 Refill [facility] MEDICINE [address] [place] [address] Catherine Duran FNP [address] [place] [address] Muscle spasm Social History Tobacco Use Types Packs/Day Years [...] Office Visit [facility] MEDICINE [address] [place] [address] Name, MD Garret [address] [place] [address] documented as of this encounter Visit Diagnoses Diagnosis Muscle spasm Spasm of muscle documented in this encounter Additional Health Concerns Assessment Noted Time PHQ-9 Depression Total Score: 5 03/10/20 23 9:36 AM EDT documented as of this encounter Care Teams Service Support Representative Relationship Specialty Start Date End Date Catherine [place] [address] PCP - General Family Medicine 06/18/22 11/11/24 Name, MD Garret [address] [place] [address] PCP - General Internal Medicine 11/12/24 documented as of this encounter
--- OUTSIDE RECORDS SUMMARY | 2025-02-16 07:05 | XMS_ITS | Encounter Summary ---
Author Organization [employer] [facility] Address [address] [place] [address] 7 [place] [address] Care Team Providers Care Position Classification Manager Name Role Phone Catherine Duran Primary Care Provider [phone] Garret Patrick MD Primary Care Provider Reason for Visit * Reason Comments Med Refill Encounter Details Date Type Department Care Team (Late st Contact Info) Description 09/25/2022 Refill [facility] MEDICINE [address] [place] [address] Catherine Duran FNP [address] [place], [place] [phone] Social History Tobacco Use Types Packs/Day Years Used Date Smoking Tobacco: Never Assessed Sex and Gender Information Value Date Recorded Sex Assigned at Male 08/19/2022 10:19 AM EDT Legal Sex Male 10:19 AM EDT Gender Identity Male 08/19/2022 10:19 AM EDT Sexual Orientation Straight 08/19/2022 10 :19 AM EDT documented as of this encounter Plan of Treatment Upcoming Encounters Date Type Department Care Team (Late st Contact Info) Description 05/27/2025 9:00 AM EDT Office Visit [facility] MEDICINE [address] [place] [address] NameGarret MD [address] [place] [address] documented as of this encounter Visit Diagnoses Not on filedocumented in this encounter Care Teams Position Classification Manager Relationship Specialty Start Date End Date Catherine Duran FNP [address] [place] [address] PCP - General Family Medicine 06/18/22 11/11/24 Name, MD Garret [address] [place] [address] PCP - General Internal Medicine 11/12/24 documented as of this encounter
[2025-02-16 07:20] LABS: Immature Retic Fraction 12.4 % (2.3-13.4); Retic HGB Equivalent 34.9 pg (30.0-35.0); Reticulocyte Percent 1.5 % (0.5-1.8); Reticulocytes Absolute 0.063 X10*6/uL (0.026-0.095)
[2025-02-16 07:52] LABS: Parathyroid Hormone Intact 57.1 pg/mL (8.7-77.1)
[2025-02-16 07:56] LABS: Alanine Aminotransferase 29 U/L (0-40); Albumin Level 4.6 g/dL (3.5-5.0); Alkaline Phosphatase 47 U/L (39-117); Anion Gap 13 (12-20); Aspartate Amino Transferase 31 U/L (5-37); Bilirubin Direct 0.3 mg/dL (0.0-0.5); Bilirubin Total 0.8 mg/dL (0.0-1.0); Blood Urea Nitrogen 19 mg/dL (9-16); Calcium 9.9 mg/dL (8.4-10.2); Carbon Dioxide 25 mmol/L (22-29); Chloride 108 mmol/L (96-108); Estimated Glomerular Filt Rate 58; Glucose Random 101 mg/dL (60-115); Iron 126 mcg/dL (45-160); Percent Iron Saturation 36 % (15-50); Potassium 4.4 mmol/L (3.3-5.1); Sodium 142 mmol/L (135-145); Total Iron Binding Capacity 354 mcg/dL (228-428); Total Protein 7.6 g/dL (6.5-8.0); Unsaturated Iron Binding 228 ug/dL
[2025-02-16 08:30] LABS: Ferritin 405 ng/mL (20-250)
== END 2025-02-16 07:02 | disposition home or self-care (01) ==
LOC: HO.LAB 07:01
PROVIDERS: Absent Provider Internal Medicine Geriatric Medicine; PCP Internal Medicine Geriatric Medicine; Visit Provider Registered Nurse
DX: R79.89 Other specified abnormal findings of blood chemistry (principal); E55.9 Vitamin D deficiency, unspecified; M54.50 Low back pain, unspecified; G89.29 Other chronic pain
CPT/HCPCS: 36415; 72110; 80048; 80076; 82728; 83540; 83970; 85045

== ENCOUNTER → 2025-02-16 07:17 | Outpatient (BNV) | payer MEDICAID, SELFPAY | PROVIDERS: Absent Provider Internal Medicine Geriatric Medicine; PCP Internal Medicine Geriatric Medicine; Visit Provider Specialist | DX: M54.50 Low back pain, unspecified (principal) | CPT/HCPCS: 72110 ==

== ENCOUNTER 2025-03-01 08:06 | Outpatient (AMB) | payer MEDICAID, SELFPAY ==
--- OUTSIDE RECORDS SUMMARY | 2025-03-01 08:08 | XMS_ITS | Encounter Summary ---
Author Organization [employer] Address [address] [place] [address] 7t [place] [address] Care Team Providers Care College Instructor Name Role Phone Catherine Duran Primary Care Provider [phone] Name, Garret VALENCIA Primary Care Provider [phone] Reason for Visit * Reason Comments Med Refill Encounter Details Date Type Department Care Team ([facility] Contact Info) Description 03/10/2023 Refill [facility] MED & PEDS [address] [place] [address] Tram Noble FNP [address] [place] [address] Dept [place] [address] Gout, unspecified cause, unspecified chronicity, unspecified site [...] Upcoming Encounters Date Type Department Care Team ([facility] st Contact Info) Description 05/27/2025 9:00 AM EDT Office Visit [facility] MEDICINE [address] [place] [address] Name, [place] [address] documented as of this encounter Visit Diagnoses Diagnosis Gout, unspecified cause, unspecified chronicity, unspecified site documented in this encounter Additional Health Concerns Assessment Noted Time PHQ-9 Depression Total Score: 5 03/10/20 23 9:36 AM EDT documented as of this encounter Care Teams College Instructor Relationship Specialty Start Date End Date [place] [address] PCP - General Family Medicine 06/18/22 11/11/24 Name, [place] [address] PCP - General Internal Medicine 11/12/24 documented as of this encounter
--- OUTSIDE RECORDS SUMMARY | 2025-03-01 08:08 | XMS_ITS | Encounter Summary ---
Author Organization [employer] Address [address] [facility] 7t [place] [address] Care Team Providers Care C Python Developer Name Role Phone Catherine Duran Primary Care Provider [phone] Name, Garret VALENCIA Primary Care Provider [phone] Reason for Visit * Reason Comments Med Refill Encounter Details Date Type Department Care Team (Late st Contact Info) Description 03/17/2023 Refill [facility] MEDICINE [address] [place] [address] Catherine Duran FNP [address] [place] [address] Muscle spasm Social History Tobacco Use Types [...] Description 05/27/2025 9:00 AM EDT Office Visit [facility] MEDICINE [address] [place] [address] Name, MD Garret [address] [place] [address] documented as of this encounter Visit Diagnoses Diagnosis Muscle spasm Spasm of muscle documented in this encounter Additional Health Concerns Assessment Noted Time PHQ-9 Depression Total Score: 5 03/10/20 23 9:36 AM EDT documented as of this encounter Care Teams C Python Developer Relationship Specialty Start Date End Date Catherine Duran FNP [address] [place] [address] PCP - General Family Medicine 06/18/22 11/11/24 Name, [place] [address] PCP - General Internal Medicine 11/12/24 documented as of this encounter
--- OUTSIDE RECORDS SUMMARY | 2025-03-01 08:08 | XMS_ITS | Encounter Summary ---
Author Organization [employer] Address [address] [place] [address] 7 [place] [address] Care Team Providers Care Wire Stitcher Name Role Phone Catherine Duran Primary Care Provider [phone] Garret Patrick MD Primary Care Provider [phone] Reason for Visit * Reason Comments Med Refill Encounter Details Date Type Department Care Team (Late st Contact Info) Description 02/05/2023 Refill [facility] MED & PEDS [address] [place] [address] Tram Noble FNP [address] [place] [address] Dept [place] [address] Gout, unspecified cause, unspecified chronicity, unspecified site [...] Description 05/27/2025 9:00 AM EDT Office Visit [facility] MEDICINE [address] [place], [place] [phone] Name, MD Garret [address] [place] [address] documented as of this encounter Visit Diagnoses Diagnosis Gout, unspecified cause, unspecified chronicity, unspecified site documented in this encounter Additional Health Concerns Assessment Noted Time PHQ-9 Depression Total Score: 0 10/09/20 22 2:25 PM EST documented as of this encounter Care Teams Wire Stitcher Relationship Specialty Start Date End Date Catherine Duran FNP [address] [place] [address] PCP - General Family Medicine 06/18/22 11/11/24 Name, MD Garret [address] [place] [address] PCP - General Internal Medicine 11/12/24 documented as of this encounter
--- OUTSIDE RECORDS SUMMARY | 2025-03-01 08:08 | XMS_ITS | Encounter Summary ---
Author Organization [employer] Address [address] [facility] 7t [place] [address] Care Team Providers Care Assistant Sales Center Manager Name Role Phone Catherine Duran Primary Care Provider [phone] Name, Garret VALENCIA Primary Care Provider [phone] Encounter Details Date Type Department Care Team (Late st Contact Info) Description 09/05/2023 Abstract [facility] MEDICINE [address] [place] [address] Pamela Molina Social History Tobacco Use Types [...] Description 05/27/2025 9:00 AM EDT Office Visit [facility] MEDICINE [address] [place] [address] NameGarret MD [address] [place] [address] documented as of this encounter Visit Diagnoses Not on filedocumented in this encounter Additional Health Concerns Assessment Noted Time PHQ-9 Depression Total Score: 5 03/10/20 23 9:36 AM EDT documented as of this encounter Care Teams Assistant Sales Center Manager Relationship Specialty Start Date End Date Catherine Duran FNP [address] [place] [address] PCP - General Family Medicine 06/18/22 11/11/24 Garret Patrick MD [address] [place] [address] PCP - General Internal Medicine 11/12/24 documented as of this encounter
--- OUTSIDE RECORDS SUMMARY | 2025-03-01 08:08 | XMS_ITS | Encounter Summary ---
Author Organization [employer] Address [address] [facility] 7t [place] [address] Care Team Providers Care Taker Down Name Role Phone Catherine Duran Primary Care Provider [phone] Garret Patrick MD Primary Care Provider [phone] Reason for Visit * Reason Comments Med Refill Encounter Details Date Type Department Care Team (Late st Contact Info) Description 12/01/2022 Refill [facility] MEDICINE [address] [place] [address] Catherine Duran FNP [address] [place], [place] [phone] Routine health maintenance Social History Tobacco Use [...] 9:00 AM EDT Office Visit [facility] MEDICINE [address] [place] [address] Name, MD Garret [address] [place] [address] documented as of this encounter Visit Diagnoses Diagnosis Routine health maintenance Unspecified examination documented in this encounter Additional Health Concerns Assessment Noted Time PHQ-9 Depression Total Score: 0 10/09/20 22 2:25 PM EST documented as of this encounter Care Teams Taker Down Relationship Specialty Start Date End Date Catherine Duran FNP [address] [place] [address] PCP - General Family Medicine 06/18/22 11/11/24 Name, MD Garret [address] [place] [address] PCP - General Internal Medicine 11/12/24 documented as of this encounter
--- OUTSIDE RECORDS SUMMARY | 2025-03-01 08:08 | XMS_ITS | Encounter Summary ---
Author Organization [employer] Address [address] [facility] 7t [place] [address] Care Team Providers Care Digital Media Associate Name Role Phone Catherine Duran Primary Care Provider [phone] Name, Garret VALENCIA Primary Care Provider [phone] Reason for Visit * Reason Comments Med Change Request Encounter Details Date Type Department Care Team ([facility] st Contact Info) Description 01/04/2024 Refill [facility] MEDICINE [address] [place] [address] Catherine Duran FNP [address] [place], [place] [phone] Social History Tobacco Use Types Packs/Day Years [...] 9:00 AM EDT Office Visit [facility] MEDICINE [address] [place] [phone] Garret Patrick MD [address] [place] [address] documented as of this encounter Visit Diagnoses Not on filedocumented in this encounter Additional Health Concerns Assessment Noted Time PHQ-9 Depression Total Score: 5 03/10/20 23 9:36 AM EDT documented as of this encounter Care Teams Digital Media Associate Relationship Specialty Start Date End Date Catherine Duran FNP [address] [place] [address] PCP - General Family Medicine 06/18/22 11/11/24 Garret Patrick MD [address] [place] [address] PCP - General Internal Medicine 11/12/24 documented as of this encounter
--- OUTSIDE RECORDS SUMMARY | 2025-03-01 08:08 | XMS_ITS | Clinical Summary ---
Author Organization [employer] Address [address] [place] [address] 7t [place] [address] Care Team Providers Care Nougat Candy Maker Helper Name Role Phone Name, Garret VALENCIA Primary Care Provider [phone] Allergies Active Allergy Reactions Criticality Noted Date [...] MEDICATION, TAKE 60 MINUTES BEFORE INTENDED ACTIVITY 11/17/2 022 Active fluticasone (Flonase) 50 MCG/ACT nasal [...] complication, without long-term current use of insulin ([facility]) 1 kit Once daily. Use to [...] BEFORE BED 30 tablet 2 025 Active ergocalciferol (Vitamin D2) 1.25 MG (73676 UT) capsuleIndicati ons:Vitamin D deficiency TAKE 1 [...] complication, without long-term current use of insulin ([facility]) TAKE 1 TABLET BY MOUTH 4 TIMES PER WEEK 90 tablet 3 025 Active lidocaine (Lidoderm) 5 % patchIndication s:Pain PLACE 1 PATCH TO SKIN ONCE DAILY AND WEAR UP TO 12 HOURS 30 patch 11 025 Active Arnuity Ellipta 100 MCG/ACT inhaler INHALE 1 PUFF INTO LUNGS EVERY MORNING. RINSE MOUTH WITH WATER AFTER USE THEN SPIT 30 each 11 025 Active clotrimazole (Lotrimin) 1 % creamIndication s:Tinea APPLY TOPICALLY EVERY 12 HOURS FOR 28 DAYS 30 g 025 Active ibuprofen 600 MG tabletIndicatio ns:Chronic bilateral back pain, unspecified back location TAKE 1 TABLET (600 MG) BY MOUTH EVERY 8 HOURS IF NEEDED FOR MODERATE PAIN OR FEVER. 60 tablet 3 025 Active fluticasone furoate (Arnuity Ellipta) 100 [...] week 90 tablet 3 024 2024 Discontinued ibuprofen 600 MG tabletIndicatio ns:Chronic bilateral back pain, unspecified back location TAKE 1 TABLET (600 MG) BY MOUTH EVERY 8 HOURS IF NEEDED FOR MODERATE PAIN OR FEVER. 60 tablet 3 025 2024 Discontinued clotrimazole (Lotrimin) 1 % [...] AM EST): Lab Results Component Value Date [id number] 10.2 (L) 08/20/2024 - Vit D 50,000 [...] 06/17/20 23 Overview (06/17/2023): ?? Followed by [facility] ?? Continues with omeprazole 40mg in [...] no, on fenofibrate BG monitor sent to [facility] Pharmacy Assessment & Plan (03/17/2023 4:48 PM [...] Routine Health Maintenance Optometry: PEPITO 08/20/[address] [facility]. No diabetic retinopathy or macular edema present bilat. Dental: referral to [facility] Dental placed January 2024 Routine Cancer Screening [...] Routine Health Maintenance Optometry: PEPITO 08/02/[address] [facility]. No diabetic retinopathy or macular [...] machine on 06/12/23. Approved/delivered Oct 2023 from [facility] Assessment & Plan (10/30/2023 9:05 AM EST): -Continue with Flovent 110mcg BID and albuterol PRN -Reviewed rule of 2's for assessing control -DME request for neb machine on 06/12/23. Pt has not yet received, will follow up w/ DME specialist as appears had been faxed to [facility] Assessment & Plan (06/12/2023 9:56 AM EDT): [...] Encounters Date Type Department Care Team Description 02/23/2025 Refill [facility] & PEDS [address] [place] [address] Catherine Duran FNP Chronic bilateral back pain, unspecified back location 02/11/[address] [facility] MEDICINE [address] [place] [address] Garret Patrick MD Tinea 02/11/[address] [facility] MED & PEDS [address] [place], [place] [phone] Catherine Duran FNP Type 2 diabetes mellitus without complication, without long-term current use of insulin ([facility]); Pain; Tinea 02/08/2025 10:15 AM EDT Office Visit [facility] MEDICINE [address] [place], [place] [phone] Garret Patrick MD Type 2 diabetes mellitus without complication, without long-term current use of insulin ([facility]) (Primary Dx); Elevated ferritin; Chronic bilateral low back pain without sciatica 02/08/2025 Travel 02/02/[address] [facility] MEDICINE [address] [place] [address] Yogi Salcedo MA chart prep 01/31/2025 Patient Outreach [facility] MEDICINE [address] [place] [address] Garret Patrick MD Care Coordination (CHW outreach for SDOH housing search-referral completed ) 01/31/2025 Patient Outreach [facility] [address] [place] [address] Garret Patrick MD Pre-visit Planning (SDOH positive. Tobacco screening negative. ) 01/23/2025 Refill [facility] [address] [place] [address] Garret Patrick MD Muscle spasm 01/17/2025 Outside Procedure [facility] OPTOMETRY [address] [place] [address] FredDerrickn, OD Presbyopia (Primary Dx) [address] [facility] MEDICINE [address] [place] [address] Catherine Duran FNP Encounter for general adult medical examination without abnormal findings 01/13/2025 1:00 PM EDT Office Visit [facility] OPTOMETRY [address] [place] [address] Derrick Ibarran, OD Myopia of right eye (Primary Dx) 01/13/2025 Travel 01/06/[address] [facility] MEDICINE [address] [place] [address] Catherine Duran FNP Tinea 12/28/[address] [facility] MEDICINE [address] [place] [address] Catherine Duran FNP Sleep difficulties 12/26/[address] [facility] MEDICINE [address] [place] [address] Catherine Duran FNP Primary hypertension 12/21/2024 Refill [facility]ED[facility] [address] [place], [place] [phone] Catherine Duran FNP Muscle spasm 12/13/2024 9:00 AM EST Office Visit [facility] OPTOMETRY [address] [place] [address] Kassi Ibarra, OD Type 2 diabetes mellitus without ophthalmic manifestations (CMS/HCC) (Primary Dx); Refractive amblyopia, right; Combined forms of age-related cataract of both eyes; Nevus of forehead; Presbyopia 12/13/2024 Travel 12/09/[address] [facility] MED & PEDS [address] [place], [place] [phone] Anika Seals, RN Results 12/08/[address] [facility] MEDICINE [address] [place] [address] Catherine Duran FNP Tinea 12/05/[address] [facility] MEDICINE [address] [place] [address] Catherine Duran FNP Vitamin D deficiency from [...] with others, in a hotel, in a usp, living outside on the street, on a [...] the past 12 months, has t he [employer], gas, oil or water [employer] threatened to shut off services in your [...] Description 05/27/2025 9:00 AM EDT Office Visit [facility] MEDICINE [address] [place] [phone] Name, MD Garret [address] [place] [address] Health Maintenance Due Date Last Done Comments [...] Procedure Name Priority Date/Time Associated Diagnosis Comments XR LUMBAR SPINE COMPLETE 4+ VIEWS Routine 02/18/2025 8:51 AM EDT Chronic bilateral low back pain without sciatica PTH, INTACT WITHOUT CALCIUM Routine 02/16/2025 7:13 AM EDT Vitamin D deficiency RETICULOCYTE COUNT Routine 02/16/2025 7: 13 AM EDT Elevated ferritin BASIC METABOLIC PANEL Routine 02/16/2025 7:13 AM EDT Elevated ferritin IRON AND TOTAL IRON BINDING CAPACITY Routine 02/16/2025 7:13 AM EDT Elevated ferritin FERRITIN Routine 02/16/2025 7:13 AM EDT Elevated ferritin HEPATIC FUNCTION PANEL Routine 02/16/2025 7:13 AM EDT Elevated ferritin POCT GLYCATED HEMOGLOBIN, TOTAL Routine 02/08/2025 10:08 AM EDT Type 2 diabetes mellitus without complication, without long-term current use of insulin (CMS/HCC) POCT GLUCOSE Routine 02/08/2025 10:07 AM EDT Type 2 diabetes mellitus without complication, without long-term current use of insulin (CMS/HCC) ALBUMIN, RANDOM URINE W/CREATININE Routine 04/27/2024 7:45 [...] Recently Relevant to Health Maintenance Results * XR Lumbar Spine Complete 4+ Views (02/18/2025 8:51 AM EDT) Anatomical Region Laterality Modality Spine, L-spine Radiographic Bina ging 02/18/2025 8:51 AM EDT Narrative 02/18/2025 8:53 AM EDT ? [facility] ?[address] ?[place] [address] ?XRay Report ? Signed ? Patient: Mian Pavon,Hiren ?MR# ?? : [id number] ? : 1955 ?Acct:[id number] ? Age/Sex: 70 / M ?ADM Date: 02/16/25 ? Loc: HO.LAB ? Attending Dr: Catherine Duran DAG COATER ? Ordering Physician: Garret Ptarick MD ?? Date of Service: 02/16/25 ?? Procedure(s): XR lumbar spine 4V min ?? Accession Number(s): [id number] ? cc: Garret Patrick MD ? CLINICAL HISTORY: Chronic low back pain --- Additional Notes or Special Instructions: WO ? 5 views lumbar spine ? Comparison: None ? Findings: ?? Normal alignment. ?? No acute fractures or dislocation. ?? There is multiple level degenerative disc and facet change. ? IMPRESSION: ?? No acute findings. ? This document has been electronically signed by: Mckay Murillo MD on ?? 02/18/2025 08:51:56 ? Dictated By: ?Mckay Murillo MD ? Signed By: ?<Electronically signed by Mckay Murillo MD in OV> ?02/18/25 0853 ? DD/ 0 ? TD/TT: 02/18/25850 ? Professor Of Sport Management: ? Procedure Note Christal Starkey - 02/18/[address] [address] XRay Report Signed Patient: Jm Manzo EMR# : [id number] : 1955cct:[id number] Age/Sex: 70 / MADM Date: 02/16/25 Loc: HO.LAB Attending Dr: Catherine Duran DAG COATER Ordering Physician: Garret Patrick MD Date of Service: 02/16/25 Procedure(s): XR lumbar spine 4V min Accession Number(s): [id number] cc: Garret Patrick MD CLINICAL HISTORY: Chronic low back pain --- Additional Notes or SpecialInstructions: WO 5 views lumbar spine Comparison: None Findings: Normal alignment. No acute fractures or dislocation. There is multiple level degenerative disc and facet change. IMPRESSION: No acute findings. This document has been electronically signed by: Mckay Murillo MD on 02/18/2025 08:51:56 Dictated By: Mckay Murillo MD Signed By: <Electronically signed by Mckay Murillo MD in OV> 02/18/25 0853 DD/ 0 TD/TT: 02/18/25850 Professor Of Sport Management: Garret Patrick MD IMG XR PROCEDURES Final Result * Iron And Total Iron Binding Capacity (02/16/2025 7:13 AM EDT) Iron 126 45 - 160 mcg/dL [facility] Total Iron Binding Capacity 354 228 - 428 mcg/dL [facility] Percent Iron Saturation 36 15 - 50 % [facility] Unsaturated Iron Binding 228 ug/dL [facility] Blood Venous blood specimen / Unknown 02/16/2025 7:13 AM EDT 02/16/2025 7:13 AM EDT Catherine Phalen DAG COATER LAB BLOOD ORDERABLES Final Res ult Performing Organization Address [facility] Co de Phone Number [facility] [address] [place] [phone] * Reticulocyte Count (02/16/2025 7:13 AM EDT) [facility] Reticulocytes Absolute 0.063 0.026 - 0.095 X10*6/uL [facility] Immature Retic Fraction 12.4 2.3 - 13.4 % [facility] Retic HGB Equivalent 34.9 30.0 - 35.0 pg [facility] Reticulocyte Percent 1.5 0.5 - 1.8 % [facility] Blood Venous blood specimen / Unknown 02/16/2025 7:13 AM EDT 02/16/2025 7:13 AM EDT Catherine Phalen DAG COATER LAB BLOOD ORDERABLES Final Res ult Performing Organization Address City/[facility]/ZIP Co de Phone Number [facility] [address] [place] [phone] * PTH, Intact Without Calcium (02/16/2025 7:13 AM EDT) Parathyroid Hormone, Intact 57.1 8.7 - 77.1 pg/mL [facility] Blood Venous blood specimen / Unknown 02/16/2025 7:13 AM EDT 02/16/2025 7:13 AM EDT Catherine Duran DAG COATER LAB BLOOD ORDERABLES Final Res ult Performing Organization Address [facility] Co de Phone Number [facility] [address] [place] [phone] * (ABNORMAL) Ferritin (02/16/2025 7:13 AM EDT) Pathologist [facility] Ferritin 405(H) 20 - 250 ng/mL [facility] Blood Venous blood specimen / Unknown 02/16/2025 7:13 AM EDT 02/16/2025 7:13 AM EDT Catherine Duran DAG COATER LAB BLOOD ORDERABLES Final Res ult Performing Organization Address [facility] Co de Phone Number [facility] [address] [place] [phone] * Hepatic Function Panel (02/16/2025 7:13 AM EDT) Bilirubin, Total 0.8 0.0 - 1.0 mg/dL [facility] Bilirubin, Direct 0.3 0.0 - 0.5 mg/dL [facility] Aspartate Amino Transferase 31 5 - 37 U/L [facility] Alanine Aminotransferase 29 0 - 40 U/L [facility] Total Protein 7.6 6.5 - 8.0 g/dL [facility] Albumin Level 4.6 3.5 - 5.0 g/dL [facility] Alkaline Phosphatase 47 39 - 117 U/L [facility] Blood Venous blood specimen / Unknown 02/16/2025 7:13 AM EDT 02/16/2025 7:13 AM EDT Catherine Duran [facility] BLOOD ORDERABLES Final Res ult Performing Organization Address [facility]/ZIP Co de Phone Number [facility] [address] [place] [phone] * (ABNORMAL) Basic Metabolic Panel (02/16/2025 7:13 AM EDT) Sodium 142 135 - 145 mmol/L [facility] Potassium 4.4 3.3 - 5.1 mmol/L [facility] Chloride 108 96 - 108 mmol/L [facility] Carbon Dioxide 25 22 - 29 mmol/L [facility] Anion Gap 13 12 - 20 [facility] Urea Nitrogen (BUN) 19(H) 9 - 16 mg/dL [facility] Creatinine, Serum 1.24 0.5 - 1.4 mg/dL [facility] Estimated Glomerular Filt Rate 58 [facility] Comment:Chronic Kidney Disea se: Estimated GFR < 60 mL/min/[id number] Kidney Disease: Estimated GFR < 15 mL/min/1.73m2 Glucose 101 60 - 115 mg/dL [facility] Calcium 9.9 8.4 - 10.2 mg/dL [facility] Blood Venous blood specimen / Unknown 02/16/2025 7:13 AM EDT 02/16/2025 7:13 AM EDT Catherine Duran [facility] BLOOD ORDERABLES Final Res ult Performing Organization Address [facility]/ZIP Co de Phone Number [facility] [address] [place] [phone] * POCT HGB A1C (02/08/2025 10:08 AM EDT) Hemoglobin A1C 5.5 4.0 - 6.0 % [employer] Media Lot # [id number] Lot# Expiration Date [id number] Blood 02/08/2025 10:0 [...] 7:45 AM EDT) Creatinine, Urine 176.20 mg/dL [facility] Microalbumin Urine 28.0 mg/L [facility] Microalbum Creatinine Ratio Ur 15.8 <30 ug/mg cr [facility] Comment:Albumin/Creatinine R atio Reference Ranges: Normal: < 30 ug/mg creatinine Microalbuminuria: 30 - 300 ug/mg creatinineClinical Albuminuria: > 300 ug/mg creatinine Urine 04/27/2024 7:45 AM EDT 04/27/2024 8:22 AM EDT Catherine Duran DAG COATER LAB URINE ORDERABLES Final Res ult [facility] [address] [place] [phone] * Hepatitis C Viral RNA, Quantitative, Real-Time PCR (04/27/2024 7:41 AM EDT) Hepatitis C Viral Load <15 NOT DETECTED NOT DETECTED IU/mL [facility] HCV Log PCR <1.18 NOT DETECTED NOT DETECTED Log IU/mL [facility] Comment:For additional infor ana, please refer tohttp://education.questdiagnostics.com/faq/HHD11z6(This link is being provided for informational/educational purposes only.)THIS TEST WAS PERFORMED AT:[facility] [place] [phone] MCKEON MD Blood 04/27/2024 7:41 AM EDT 04/27/2024 7:41 AM EDT us Catherine Duran [facility] BLOOD ORDERABLES Final Res ult Performing Organization Address [facility] Co de Phone Number [facility] [address] [place] [address] [phone] * Lipid Panel, Standard (04/27/2024 7:41 AM EDT) Triglycerides 78 <150 mg/dL [facility] Comment:Desirable Triglyceri de: less than 150 mg/dLBorderline High Triglyceride 150-199 mg/dLHigh Triglyceride: 200-499 mg/dLVery High Triglyceride: greater than or equal to 5OO mg/dL Cholesterol 157 <200 mg/dL [facility] Comment:Desirable Cholestero l: less than 200 mg/dLBorderline High Cholesterol: 200-239 mg/dLHigh Cholesterol: greater than 239 mg/dL LDL Cholesterol Calculated 88 <100 mg/dL [facility] Comment:Desirable LDL: less than 100 mg/dLNear Optimal/Above Optimal LDL: 110- 129 mg/dLBorderline High LDL: 130-159 mg/dLHigh LDL: 160-189 mg/dLVery High LDL: greater than or equal to 190 mg/dL HDL Cholesterol 54 >40 mg/dL [facility] Comment:Desirable HDL: great er than 40 mg/dL Note: This HDL assay may give artificially low results in patients with liver disease. Blood Venous blood specimen / Unknown 04/27/2024 7:41 AM EDT 04/27/2024 7:41 AM EDT us Catherine Duran DAG COATER LAB BLOOD ORDERABLES Final Res ult [facility] [address] [place] [phone] * (ABNORMAL) Colonoscopy (02/01/2021) Colonoscopy Normal Normal Comment:Tubular Adenoma, Zhen n to follow up in 5 years 02/01/2021 us Bebo Kirkland MD HEALTH MAINTENANCE Edited Resul t - Final from Last 3 Months or Most Recently Relevant to Health Maintenance Insurance [facility] ST[facility] Care Teams Nougat Candy Maker Helper Relationship Specialty Start Date End Date Name, MD Garret [address] [place] [address] [place] [address] PCP - General Internal Medicine 11/12/24
--- OUTSIDE RECORDS SUMMARY | 2025-03-01 08:08 | XMS_ITS | Encounter Summary ---
Author Organization [employer] Address [address] [facility] 7t [place] [address] Care Team Providers Care Systems Software Designer Name Role Phone Catherine Duran Primary Care Provider [phone] Garret Patrick MD Primary Care Provider [phone] Reason for Visit * Reason Comments Med Refill Encounter Details Date Type Department Care Team (Late st Contact Info) Description 06/15/2023 Refill [facility] MEDICINE [address] [place], [place] [phone] Catherine Duran FNP [address] [place], [place] [phone] Tinea; Chronic bilateral back pain, unspecified back [...] Upcoming Encounters Date Type Department Care Team ([facility] Contact Info) Description 05/27/2025 9:00 AM EDT Office Visit [facility] MEDICINE [address] [place] [address] [phone] Name, MD Garret [address] [place] [phone] documented as of this encounter Visit Diagnoses Diagnosis Tinea Dermatophytosis of unspecified site Chronic bilateral back pain, unspecified back location documented in this encounter Additional Health Concerns Assessment Noted Time PHQ-9 Depression Total Score: 5 03/10/20 23 9:36 AM EDT documented as of this encounter Care Teams Systems Software Designer Relationship Specialty Start Date End Date Catherine Duran FNP [address] [place] [phone] PCP - General Family Medicine 06/18/22 11/11/24 Name, MD Garret [address] [place] [phone] PCP - General Internal Medicine 11/12/24 documented as of this encounter
--- OUTSIDE RECORDS SUMMARY | 2025-03-01 08:08 | XMS_ITS | Encounter Summary ---
Author Organization [employer] Address [address] [facility] [address]t [place] [address] Care Team Providers Care Gas Appliance Mechanic Name Role Phone Catherine Duran Primary Care Provider [phone] Garret Patrick MD Primary Care Provider [phone] Reason for Visit * Reason Comments Med Refill Encounter Details Date Type Department Care Team (Late st Contact Info) Description 02/05/2023 Refill [facility] MEDICINE [address] [place] [address] Catherine Duran FNP [address] [place], [place] [phone] Tinea Social History Tobacco Use Types Packs/Day [...] Description 05/27/2025 9:00 AM EDT Office Visit [facility] MED[facility] [address] [place] [address] Name, MD Garret [address] [place] [address] documented as of this encounter Visit Diagnoses Diagnosis Tinea Dermatophytosis of unspecified site documented in this encounter Additional Health Concerns Assessment Noted Time PHQ-9 Depression Total Score: 0 10/09/20 22 2:25 PM EST documented as of this encounter Care Teams Gas Appliance Mechanic Relationship Specialty Start Date End Date Catherine Duran FNP [address] [place] [address] PCP - General Family Medicine 06/18/22 11/11/24 Name, MD Garret [address] [place] [address] PCP - General Internal Medicine 11/12/24 documented as of this encounter
--- OUTSIDE RECORDS SUMMARY | 2025-03-01 08:08 | XMS_ITS | Encounter Summary ---
Author Organization [employer] Address [address] [facility] [address]t [place] [address] Care Team Providers Care Integrated Circuit Ic Layout Designer Name Role Phone Catherine Duran Primary Care Provider [phone] Garret Patrick MD Primary Care Provider [phone] Reason for Visit * Reason Comments Med Refill Encounter Details Date Type Department Care Team ([facility] Contact Info) Description 10/13/2022 Refill [facility] MEDICINE [address] [place] [address] Catherine Duran FNP [address] [place] [address] [phone] Pain Social History Tobacco Use Types Packs/Day [...] Upcoming Encounters Date Type Department Care Team ([facility] Contact Info) Description 05/27/2025 9:00 AM EDT Office Visit [facility] MEDICINE [address] [place], [place] [phone] Name, MD Garret [address] [place] [phone] documented as of this encounter Visit Diagnoses Diagnosis Pain Generalized pain documented in this encounter Additional Health Concerns Assessment Noted Time PHQ-9 Depression Total Score: 0 10/09/20 22 2:25 PM EST documented as of this encounter Care Teams Integrated Circuit Ic Layout Designer Relationship Specialty Start Date End Date Catherine Duran FNP [address] [place] [phone] PCP - General Family Medicine 06/18/22 11/11/24 Name, MD Garret [address] [place] [phone] PCP - General Internal Medicine 11/12/24 documented as of this encounter
--- OUTSIDE RECORDS SUMMARY | 2025-03-01 08:08 | XMS_ITS | Encounter Summary ---
Author Organization [employer] Address [address] [facility] 7t [place] [address] Care Team Providers Care Client Representative Name Role Phone Catherine Duran Primary Care Provider [phone] NameGarret MD Primary Care Provider [phone] Reason for Visit * Reason Comments Med Refill Encounter Details Date Type Department Care Team (Late st Contact Info) Description 07/09/2023 Refill [facility] MEDICINE 230 [place], [place] [phone] Catherine Duran FNP [address] [place] [address] [phone] Routine health maintenance Social History Tobacco Use [...] 05/27/2025 9:00 AM EDT Office Visit [facility] MEDICINE 230 [place], [place] [phone] Name, MD Garret 230 [place], [place] [phone] documented as of this encounter Visit Diagnoses Diagnosis Routine health maintenance Unspecified examination documented in this encounter Additional Health Concerns Assessment Noted Time PHQ-9 Depression Total Score: 5 03/10/20 23 9:36 AM EDT documented as of this encounter Care Teams Client Representative Relationship Specialty Start Date End Date Catherine Duran FNP 230 [place] [address] PCP - General Family Medicine 06/18/22 11/11/24 Name, MD Garret 230 [place] [address] PCP - General Internal Medicine 11/12/24 documented as of this encounter
--- OUTSIDE RECORDS SUMMARY | 2025-03-01 08:08 | XMS_ITS | Encounter Summary ---
Author Organization [employer] Address [address] [facility] 7t [place] [address] Care Team Providers Care Greige Goods Marker Name Role Phone Catherine Duran Primary Care Provider [phone] Garret Patrick MD Primary Care Provider Reason for Visit * Reason Comments Med Refill Encounter Details Date Type Department Care Team (Late st Contact Info) Description 11/13/2022 Refill [facility] MEDICINE 230 [place] [address] Catherine Duran FNP 505 [place], [place] [phone] Routine health maintenance Social History Tobacco Use [...] Description 05/27/2025 9:00 AM EDT Office Visit [facility] MEDICINE 230 [place] [address] Name, MD Garret 230 [place] [address] documented as of this encounter Visit Diagnoses Diagnosis Routine health maintenance Unspecified examination documented in this encounter Additional Health Concerns Assessment Noted Time PHQ-9 Depression Total Score: 0 10/09/20 22 2:25 PM EST documented as of this encounter Care Teams Greige Goods Marker Relationship Specialty Start Date End Date Catherine Duran FNP 230 [place] [address] PCP - General Family Medicine 06/18/22 11/11/24 Name, MD Garret 230 [place] [address] PCP - General Internal Medicine 11/12/24 documented as of this encounter
--- OUTSIDE RECORDS SUMMARY | 2025-03-01 08:08 | XMS_ITS | Encounter Summary ---
Author Organization [employer] Address [address] [place] [address] 7 [place] [address] Care Team Providers Care Platform Builder Name Role Phone Catherine Duran Primary Care Provider [phone] Garret Patrick MD Primary Care Provider [phone] Reason for Visit * Reason Comments Med Refill Encounter Details Date Type Department Care Team (Late st Contact Info) Description 01/25/2023 Refill [facility] MED & PEDS 505 [place] [address] Tram Noble FNP [address] [place] [address] Dept [place] [address] Gout, unspecified cause, unspecified chronicity, unspecified site [...] Description 05/27/2025 9:00 AM EDT Office Visit [facility] MEDICINE 230 [place], [place] [phone] Name, MD Garret 230 [place] [address] documented as of this encounter Visit Diagnoses Diagnosis Gout, unspecified cause, unspecified chronicity, unspecified site documented in this encounter Additional Health Concerns Assessment Noted Time PHQ-9 Depression Total Score: 0 10/09/20 22 2:25 PM EST documented as of this encounter Care Teams Platform Builder Relationship Specialty Start Date End Date Catherine Duran FNP 230 [place] [address] PCP - General Family Medicine 06/18/22 11/11/24 Name, MD Garret 230 [place] [address] PCP - General Internal Medicine 11/12/24 documented as of this encounter
--- OUTSIDE RECORDS SUMMARY | 2025-03-01 08:08 | XMS_ITS | Encounter Summary ---
Author Organization [employer] Address [address] [facility] 7t [place] [address] Care Team Providers Care Desk Attendant Name Role Phone Catherine Duran Primary Care Provider [phone] Garret Patrick MD Primary Care Provider [phone] Reason for Visit * Reason Comments Med Refill Encounter Details Date Type Department Care Team (Late st Contact Info) Description 12/19/2022 Refill [facility] MED[facility]INE 230 [place] [address] Catherine Duran FNP 505 [place], [place] [phone] Routine health maintenance Social History Tobacco Use [...] [facility] MEDICINE 230 [place] [address] Name, MD Garret 230 [place] [address] documented as of this encounter Visit Diagnoses Diagnosis Routine health maintenance Unspecified examination documented in this encounter Additional Health Concerns Assessment Noted Time PHQ-9 Depression Total Score: 0 10/09/20 22 2:25 PM EST documented as of this encounter Care Teams Desk Attendant Relationship Specialty Start Date End Date Catherine Duran FNP 230 [place] [address] PCP - General Family Medicine 06/18/22 11/11/24 Name, MD Garret 230 [place] [address] PCP - General Internal Medicine 11/12/24 documented as of this encounter
--- OUTSIDE RECORDS SUMMARY | 2025-03-01 08:08 | XMS_ITS | Encounter Summary ---
Author Organization [employer] Address [address] [place] [address] 7t [place] [address] Care Team Providers Care Social Work Instructor Name Role Phone Catherine Duran Primary Care Provider [phone] Garret Patrick MD Primary Care Provider [phone] Reason for Visit * Reason Comments Med Refill Encounter Details Date Type Department Care Team (Late st Contact Info) Description 04/16/2023 Refill [facility] CHC MED & PEDS 505 [place] [address] Tram Noble FNP [address] [place] [address] Dept [place] [address] Gout, unspecified cause, unspecified chronicity, unspecified site [...] Description 05/27/2025 9:00 AM EDT Office Visit [facility] MEDICINE 230 [place] [address] Name, MD Garret [address] [place] [address] documented as of this encounter Visit Diagnoses Diagnosis Gout, unspecified cause, unspecified chronicity, unspecified site documented in this encounter Additional Health Concerns Assessment Noted Time PHQ-9 Depression Total Score: 5 03/10/20 23 9:36 AM EDT documented as of this encounter Care Teams Social Work Instructor Relationship Specialty Start Date End Date Catherine Duran FNP [address] [place] [address] PCP - General Family Medicine 06/18/22 11/11/24 Name, MD Garret [address] [place] [address] PCP - General Internal Medicine 11/12/24 documented as of this encounter
--- OUTSIDE RECORDS SUMMARY | 2025-03-01 08:08 | XMS_ITS | Encounter Summary ---
Author Organization [employer] Address [address] [facility] 7t [place] [address] Care Team Providers Care Aeronautical Engineering Officer Name Role Phone Catherine Duran Primary Care Provider [phone] Garret Patrick MD Primary Care Provider [phone] Reason for Visit * Reason Comments Med Refill Encounter Details Date Type Department Care Team (Late st Contact Info) Description 01/27/2023 Refill [facility] MEDICINE 230 [place] [address] Catherine Duran FNP 505 [place], [place] [phone] Routine health maintenance Social History Tobacco Use [...] 05/27/2025 9:00 AM EDT Office Visit [facility] MEDICINE 230 [place] [address] Name, MD Garret 230 [place] [address] documented as of this encounter Visit Diagnoses Diagnosis Routine health maintenance Unspecified examination documented in this encounter Additional Health Concerns Assessment Noted Time PHQ-9 Depression Total Score: 0 10/09/20 22 2:25 PM EST documented as of this encounter Care Teams Aeronautical Engineering Officer Relationship Specialty Start Date End Date Catherine Duran FNP 230 [place] [address] PCP - General Family Medicine 06/18/22 11/11/24 Name, MD Garret 230 [place] [address] PCP - General Internal Medicine 11/12/24 documented as of this encounter
--- OUTSIDE RECORDS SUMMARY | 2025-03-01 08:08 | XMS_ITS | Encounter Summary ---
Author Organization [employer] Address [address] [place] [address] 7 [place] [address] Care Team Providers Care Event Mgr Name Role Phone Catherine Duran Primary Care Provider [phone] Garret Patrick MD Primary Care Provider [phone] Reason for Visit * Reason Comments Med Refill Encounter Details Date Type Department Care Team (Late st Contact Info) Description 02/26/[address] [facility] CHC MED & PEDS 505 [place] [address] Tram Noble FNP [address] [place] [address] Dept [place] [address] Gout, unspecified cause, unspecified chronicity, unspecified site [...] AM EDT Office Visit [facility] MEDICINE 230 [place], [place] [phone] Name, MD Garret 230 [place] [address] documented as of this encounter Visit Diagnoses Diagnosis Gout, unspecified cause, unspecified chronicity, unspecified site documented in this encounter Additional Health Concerns Assessment Noted Time PHQ-9 Depression Total Score: 0 10/09/20 22 2:25 PM EST documented as of this encounter Care Teams Event Mgr Relationship Specialty Start Date End Date Catherine Duran FNP 230 [place] [address] PCP - General Family Medicine 06/18/22 11/11/24 Name, MD Garret 230 [place] [address] PCP - General Internal Medicine 11/12/24 documented as of this encounter
--- OUTSIDE RECORDS SUMMARY | 2025-03-01 08:08 | XMS_ITS | Encounter Summary ---
Author Organization [employer] Address [address] [facility] 7t [place] [address] Care Team Providers Care Tack Cleaner Name Role Phone Catherine Duran Primary Care Provider [phone] Garret Patrick MD Primary Care Provider [phone] Reason for Visit * Reason Comments Med Refill Encounter Details Date Type Department Care Team (Late st Contact Info) Description 04/16/[address] [facility] MEDICINE 230 [place], [place] [phone] Catherine Duran FNP 505 [place], [place] [phone] Pure hyperglyceridemia; Tinea Social History Tobacco Use [...] Office Visit [facility] MEDICINE 230 [place], [place] [phone] Name, MD Garret 230 [place] [address] documented as of this encounter Visit Diagnoses Diagnosis Pure hyperglyceridemia Tinea Dermatophytosis of unspecified site documented in this encounter Additional Health Concerns Assessment Noted Time PHQ-9 Depression Total Score: 5 03/10/20 23 9:36 AM EDT documented as of this encounter Care Teams Tack Cleaner Relationship Specialty Start Date End Date Catherine Duran FNP 230 [place] [address] PCP - General Family Medicine 06/18/22 11/11/24 Name, MD Garret 230 [place] [address] PCP - General Internal Medicine 11/12/24 documented as of this encounter
--- OUTSIDE RECORDS SUMMARY | 2025-03-01 08:08 | XMS_ITS | Encounter Summary ---
Author Organization [employer] Address [address] [place] [address] 7 [place] [address] Care Team Providers Care Service Desk Agent Name Role Phone Catherine Duran Primary Care Provider [phone] Garret Patrick MD Primary Care Provider [phone] Reason for Visit * Reason Comments Med Refill Encounter Details Date Type Department Care Team (Late st Contact Info) Description 02/22/2023 Refill [facility] CHC MED & PEDS 505 [place] [address] Tram Noble FNP [address] [place] [address] Dept [place] [address] Gout, unspecified cause, unspecified chronicity, unspecified site [...] Description 05/27/2025 9:00 AM EDT Office Visit [facility] MEDICINE 230 [place], [place] [phone] Name, MD Garret 230 [place] [address] documented as of this encounter Visit Diagnoses Diagnosis Gout, unspecified cause, unspecified chronicity, unspecified site documented in this encounter Additional Health Concerns Assessment Noted Time PHQ-9 Depression Total Score: 0 10/09/20 22 2:25 PM EST documented as of this encounter Care Teams Service Desk Agent Relationship Specialty Start Date End Date Catherine Duran FNP 230 [place] [address] PCP - General Family Medicine 06/18/22 11/11/24 Name, MD Garret 230 [place] [address] PCP - General Internal Medicine 11/12/24 documented as of this encounter
--- OUTSIDE RECORDS SUMMARY | 2025-03-01 08:08 | XMS_ITS | Encounter Summary ---
Author Organization [employer] Address [address] [facility] 7t [place] [address] Care Team Providers Care Balling Machine Operator Name Role Phone Catherine Duran Primary Care Provider Garret Patrick MD Primary Care Provider [phone] Reason for Visit * Reason Comments Med Refill Encounter Details Date Type Department Care Team ([facility] Contact Info) Description 10/15/2022 Refill [facility] MEDICINE 230 [place] [address] Catherine Duran FNP [address] [place] [address] [phone] Pain Social History Tobacco Use Types Packs/Day [...] Upcoming Encounters Date Type Department Care Team ([facility] Contact Info) Description 05/27/2025 9:00 AM EDT Office Visit [facility] MEDICINE 230 [place], [place] [phone] Name, MD Garret [address] [place] [address] documented as of this encounter Visit Diagnoses Diagnosis Pain Generalized pain documented in this encounter Additional Health Concerns Assessment Noted Time PHQ-9 Depression Total Score: 0 10/09/20 22 2:25 PM EST documented as of this encounter Care Teams Balling Machine Operator Relationship Specialty Start Date End Date Catherine Duran FNP [address] [place] [address] PCP - General Family Medicine 06/18/22 11/11/24 Name, MD Garret [address] [place] [address] PCP - General Internal Medicine 11/12/24 documented as of this encounter
--- OUTSIDE RECORDS SUMMARY | 2025-03-01 08:08 | XMS_ITS | Encounter Summary ---
Author Organization [employer] Address 75 [facility] 7t [place] [address] Care Team Providers Care Tire Technician Name Role Phone Name, Garret VALENCIA Primary Care Provider [phone] Reason for Visit * Reason Comments Med Refill Encounter Details Date Type Department Care Team ([facility] st Contact Info) Description 12/28/2024 Refill [facility] MEDICINE 230 [place] [address] Catherine Duran FNP 505 [place] [address] Sleep difficulties Social History Tobacco Use Types [...] Description 05/27/2025 9:00 AM EDT Office Visit [facility] MEDICINE [address] [place] [address] Name, MD Garret 230 [place] [address] documented as of this encounter Visit Diagnoses Diagnosis Sleep difficulties documented in this encounter Additional Health Concerns Assessment Noted Time PHQ-9 Depression Total Score: 5 04/21/20 24 9:11 AM EDT documented as of this encounter Care Teams Tire Technician Relationship Specialty Start Date End Date Name, MD Garret [address] [place] [address] PCP - General Internal Medicine 11/12/24 documented as of this encounter
--- OUTSIDE RECORDS SUMMARY | 2025-03-01 08:08 | XMS_ITS | Encounter Summary ---
Author Organization [employer] Address 75 [facility] 7t [place] [address] Care Team Providers Care Manager Environmental Health And Safety Name Role Phone Catherine Duran Primary Care Provider [phone] Name, Garret VALENCIA Primary Care Provider [phone] Reason for Visit * Reason Comments Med Refill Encounter Details Date Type Department Care Team ([facility] st Contact Info) Description 05/13/2024 Refill [facility] CHC MED & PEDS 505 [place], [place] [phone] Catherine Duran FNP 505 [place], [place] [phone] Type 2 diabetes mellitus without complication, without long-term current use of insulin ([facility]) Social History Tobacco Use Types Packs/Day Years [...] Description 05/27/2025 9:00 AM EDT Office Visit [facility] MEDICINE 230 [place] [address] Garret Patrick MD 230 [place] [address] documented as of this encounter Visit Diagnoses Diagnosis Type 2 diabetes mellitus without complication, without long-term current use of insulin ([facility]) documented in this encounter Additional Health Concerns Assessment Noted Time PHQ-9 Depression Total Score: 5 04/21/20 24 9:11 AM EDT documented as of this encounter Care Teams Manager Environmental Health And Safety Relationship Specialty Start Date End Date Catherine Duran FNP [address] [place] [address] PCP - General Family Medicine 06/18/22 11/11/24 Garret Patrick MD [address] [place] [address] PCP - General Internal Medicine 11/12/24 documented as of this encounter
--- OUTSIDE RECORDS SUMMARY | 2025-03-01 08:08 | XMS_ITS | Encounter Summary ---
Author Organization [employer] Address [address] [place] [address] 7 [place] [address] Care Team Providers Care Final Assembly Worker Name Role Phone Catherine Duran Primary Care Provider [phone] Garret Patrick MD Primary Care Provider [phone] Reason for Visit * Reason Comments Med Refill Encounter Details Date Type Department Care Team (Late st Contact Info) Description 02/04/2023 Refill [facility] CHC MED & PEDS 505 [place] [address] Tram Noble FNP [address] [place] [address] Dept [place] [address] Gout, unspecified cause, unspecified chronicity, unspecified site [...] Description 05/27/2025 9:00 AM EDT Office Visit [facility] MEDICINE 230 [place], [place] [phone] Name, MD Garret 230 [place] [address] documented as of this encounter Visit Diagnoses Diagnosis Gout, unspecified cause, unspecified chronicity, unspecified site documented in this encounter Additional Health Concerns Assessment Noted Time PHQ-9 Depression Total Score: 0 10/09/20 22 2:25 PM EST documented as of this encounter Care Teams Final Assembly Worker Relationship Specialty Start Date End Date Catherine Duran FNP 230 [place] [address] PCP - General Family Medicine 06/18/22 11/11/24 Name, MD Garret 230 [place] [address] PCP - General Internal Medicine 11/12/24 documented as of this encounter
--- OUTSIDE RECORDS SUMMARY | 2025-03-01 08:09 | XMS_ITS | Encounter Summary ---
Author Organization [employer] Address [address] [place] [address] 7 [place] [address] Care Team Providers Care Travel Attendants Name Role Phone Catherine Duran Primary Care Provider [phone] Garret Patrick MD Primary Care Provider [phone] Reason for Visit * Reason Comments Med Refill Encounter Details Date Type Department Care Team (Late st Contact Info) Description 09/25/2022 Refill [facility] MEDICINE 230 [place] [address] Catherine Duran FNP 505 [place], [place] [phone] Social History Tobacco Use Types Packs/Day Years [...] Description 05/27/2025 9:00 AM EDT Office Visit [facility] MEDICINE 230 [place] [address] NameGarret MD 230 [place] [address] documented as of this encounter Visit Diagnoses Not on filedocumented in this encounter Care Teams Travel Attendants Relationship Specialty Start Date End Date Catherine Duran FNP 230 [place] [address] PCP - General Family Medicine 06/18/22 11/11/24 Name, MD Garret 230 [place] [address] PCP - General Internal Medicine 11/12/24 documented as of this encounter
--- NOTE | 2025-03-01 08:11 | A.OFFVIS_ITS ---
Vital Signs 03/01/25 08:12 Height 5 ft 8 in Weight 186 lb 8.177 oz BMI 28.4 BP 121/78 Blood Pressure Location Lt brachial Position Sitting Pulse 95 Pulse Source Pulse Oximeter Pulse Oximetry (%) 96 Oxygen Delivery Method Room Air Intake Visit Reasons: 30 m, f/u [facility] Intake Note: Pt presents to the office today for a follow up for [facility]. Pt states he is overall feeling well. Allergies gemfibrozil [GEMFIBROZIL] Allergy (Intermediate, Verified 03/01/25 08:20) ELEVATED LIVER ENZYMES nifedipine [NIFEDIPINE] Allergy (Intermediate, Verified 03/01/25 08:20) ELEVATED LIVER ENZYMES verapamil [VERAPAMIL] Allergy (Intermediate, Verified 03/01/25 08:20) ELEVATED LIVER ENZYMES HPI HPI 30 m, f/u [facility]: Details: LAST VISIT: GERD (gastroesophageal reflux disease) Chronic idiopathic constipation Plan Continue current regimen with omeprazole and famotidine. Patient will continue avoiding dietary triggers late night snacking. Staying upright for minimum 3 hours after meals discussed with patient. Continue Senokot. Continue high-fiber diet. I will see patient in 1 year, sooner on as needed basis. Patient will call the office if you have any concerning symptoms. Patient is agreeable to plan of care and verbalizes understanding of instructions. He was given the opportunity to ask questions all questions answered. ? Thank you for allowing me to participate in his care Medications Refilled sennosides (Natural Senna Laxative) 8.6 mg PO BEDTIME 90 tabs 3RF constipation K59.00 famotidine 40 mg PO BEDTIME 90 tabs 3RF K21.9 TODAY'S VISIT: Patient is here today for follow-up. Patient reports that he has been doing really well. Denies any dyspepsia, dysphagia or odynophagia. Patient is taking omeprazole in the morning and famotidine at bedtime. His symptoms of acid reflux are suppressed. Patient also changed his diet and is eating healthier. Patient reports that he is moving his bowels without any issues. Taking senna daily. Denies melena, hematochezia, unintentional weight loss or ribbon like stools. Patient is due to go for colonoscopy in January of 2026. [facility] Medical History GERD (gastroesophageal reflux disease) Umbilical hernia Anemia Hypogonadism in male Asthma Obesity MEJIA (obstructive sleep apnea) Gout Diabetes High cholesterol Hypertension Tubular adenoma Surgical History History of umbilical hernia repair (~03/29/22) H/O colonoscopy H/O knee surgery Family History Mother Diabetes Maternal Grandmother Diabetes Social History Household Members: Family and Children Alcohol intake: current Alcohol intake frequency: does not drink Patient Tobacco Use Status: Never used Tobacco Review of Systems Const Denies weight gain and Denies weight loss ENT Reports no additional complaints, Denies dysphagia and Denies odynophagia Card Reports no additional complaints Resp Reports no additional complaints GI Denies abdominal pain, Denies belching, Denies melena, Denies bloating, Denies change in bowel habits, Denies dysphagia, Denies excessive flatus, Denies dyspepsia, Denies heartburn, Denies diarrhea, Denies loose stools, Denies nausea, Denies odynophagia and Denies vomiting Reports no additional complaints Musc Reports no additional complaints Neuro Reports no additional complaints Psych Reports no additional complaints Endo Reports no additional complaints Physical Exam Vital Signs: Last Vital Signs Pulse 95 03/01/25 08:12 BP 121/78 03/01/25 08:12 Pulse Ox 96 03/01/25 08:12 Oxygen Delivery Method Room Air 03/01/25 08:12 BMI result Body Mass Index 28.4 Const General: healthy appearing, no acute distress and well developed Nutritional Appearance: well nourished Orientation/consciousness: patient oriented x3 Resp Effort & Inspection: normal respiratory effort, able to speak in complete sentences, no tracheal deviation and symmetric chest movement Auscultation: clear to auscultation bilaterally Cardio Rate: regular rate GI Inspection: Yes normal to inspection and No distended Palpation (GI): Soft to palpation, not firm, nontender and No hepatosplenomegaly present Auscultation: normal bowel sounds General: Yes no CVA tenderness Back/Spine/Pelvis Back: no CVA tenderness Skin General skin exam: elasticity normal, turgor normal and dry skin Neuro General: patient oriented x3 Psych Appearance: grossly normal Mental Status: mental status grossly normal Assessment & Plan Assessment & Plan (1) GERD (gastroesophageal reflux disease): Code(s): K21.9 - Gastro-esophageal reflux disease without esophagitis Category: Medical Qualifiers: Esophagitis presence: esophagitis presence not specified Qualified Code(s): K21.9 - Gastro-esophageal reflux disease without esophagitis (2) Chronic idiopathic constipation: Code(s): K59.04 - Chronic idiopathic constipation Plan Patient will continue current management of GERD with omeprazole and famotidine. Avoid dietary triggers and late night snacking. Staying upright for minimum 3 hours after meals discussed with patient. Patient can continue taking senna daily to help with bowel movements. Increase fluid intake and activity to promote better bowel motility. Patient will return in 8-10 months. We will discuss going for colonoscopy and possible upper endoscopy. He is agreeable to current plan of care and verbalizes understanding of instructions. He was given the opportunity to ask questions and all questions answered. Thank you for allowing me to participate in his care Coding Level of Care Code Est Pt Level 3 (86920) Diagnoses Gastroesophageal reflux disease, unspecified whether esophagitis present K21.9 Esophagitis presence: esophagitis presence not specified Chronic idiopathic constipation K59.04 Time Spent (min) 25 Comment 15 minutes spent with patient and additional 10 minutes spent reviewing his records
[2025-03-01 08:12] VITALS: BP 121/78; PULSE 95; O2SAT 96; BMI 28.4
== END 2025-03-01 08:27 | disposition home or self-care (01) ==
LOC: HO.HGI 08:06
PROVIDERS: PCP Registered Nurse; Visit Provider Nurse Practitioner Family
DX: K21.9 Gastro-esophageal reflux disease without esophagitis (principal); K59.04 Chronic idiopathic constipation
CPT/HCPCS: 99213

== ENCOUNTER → 2025-03-01 08:06 | Outpatient (BNVA) | payer MEDICAID, SELFPAY | PROVIDERS: PCP Registered Nurse; Visit Provider Nurse Practitioner Family | DX: K21.9 Gastro-esophageal reflux disease without esophagitis (principal); K59.04 Chronic idiopathic constipation | CPT/HCPCS: 99212 ==

== ENCOUNTER 2025-05-31 08:16 | Outpatient (REF) | payer MEDICAID, SELFPAY ==
--- OUTSIDE RECORDS SUMMARY | 2025-05-31 08:25 | XMS_ITS | Encounter Summary ---
Author Organization [employer] Address [address] [place] [address] [address] [place] [address] Care Team Providers Care Counter Sales Person Name Role Phone Catherine Duran Primary Care Provider [phone] Name, Garret VALENCIA Primary Care Provider Reason for Visit * Reason Comments Med Refill Encounter Details Date Type Department Care Team (Late st Contact Info) Description 02/05/2023 Refill [facility] [address] [place], [place] [phone] Tram Noble FNP Gout, unspecified cause, unspecified chronicity, unspecified site [...] as of this encounter Plan of Treatment Not on file documented as of this encounter Visit Diagnoses Diagnosis Gout, unspecified cause, unspecified chronicity, unspecified site documented in this encounter Additional Health Concerns Assessment Noted Time PHQ-9 Depression Total Score: 0 10/09/20 22 2:25 PM EST documented as of this encounter Care Teams Counter Sales Person Relationship Specialty Start Date End Date Catherine Duran FNP [address] [place] [id number] PCP - General Family Medicine 06/18/22 11/11/24 Name, MD Garret [address] [place] [address] PCP - General Internal Medicine 11/12/24 documented as of this encounter
[2025-05-31 11:25] LABS: MANUAL DIFF FLAG NO
[2025-05-31 11:33] LABS: Hematocrit 41.4 % (42.0-52.0); Hemoglobin 13.4 g/dl (14.0-18.0); Imm Gran Abs Auto 0.01 X10*3/uL (0.00-0.03); Imm Gran Pct Auto 0.2 % (0.0-0.4); Lymphocytes Absolute Auto 1.7 X10*3/uL (1.2-4.9); Mean Corpuscular HGB Conc 32.4 g/dl (31.0-36.0); Mean Corpuscular Hemoglobin 33.1 pg (27.0-33.0); Mean Corpuscular Volume 102.2 fL (80.0-98.0); NRBC Abs Auto 0.000 X10*3/uL (0.0-0.012); NRBC Pct Auto 0.0 /100WBC (0.0-0.2); Platelet Count 161 X10*3/uL (160-400); Red Blood Count 4.05 X10*6/uL (4.60-5.80); White Blood Count 4.9 X10*3/uL (4.8-10.8)
[2025-05-31 12:01] LABS: Microalbum/Creatinine Ratio Ur 2.9 ug/mg cr (<30)
[2025-05-31 12:45] LABS: Alanine Aminotransferase 24 U/L (0-40); Albumin Level 4.8 g/dL (3.5-5.0); Alkaline Phosphatase 44 U/L (39-117); Anion Gap 13 (12-20); Aspartate Amino Transferase 27 U/L (5-37); Blood Urea Nitrogen 16 mg/dL (9-16); Calcium 9.4 mg/dL (8.4-10.2); Carbon Dioxide 27 mmol/L (22-29); Chloride 106 mmol/L (96-108); Cholesterol 150 mg/dL (<200); Estimated Glomerular Filt Rate > 60; HDL Cholesterol 55 mg/dL (>40); Iron 124 mcg/dL (45-160); Percent Iron Saturation 35 % (15-50); Potassium 4.4 mmol/L (3.3-5.1); Sodium 142 mmol/L (135-145); Total Iron Binding Capacity 350 mcg/dL (228-428); Total Protein 7.4 g/dL (6.5-8.0); Triglycerides 80 mg/dL (<150); Unsaturated Iron Binding 226 ug/dL
[2025-05-31 13:08] LABS: Ferritin 391 ng/mL (20-250)
[2025-05-31 13:25] LABS: Folate 5.1 ng/mL (> or = 4.0); Prostate Specific Antigen 0.39 ng/mL (<0.05-4.0); Vitamin B12 928 pg/mL (200-900)
== END 2025-05-31 08:17 | disposition home or self-care (01) ==
LOC: HO.HHCL 08:16
PROVIDERS: PCP Internal Medicine Geriatric Medicine; Visit Provider Internal Medicine Geriatric Medicine
DX: Z12.5 Encounter for screening for malignant neoplasm of prostate (principal); E11.9 Type 2 diabetes mellitus without complications; R79.89 Other specified abnormal findings of blood chemistry
CPT/HCPCS: 36415; 80053; 80061; 82043; 82570; 82607; 82728; 82746; 83540; 84153; 85025